=== PATIENT | male | born 1950 | race Caucasian/White ===

== ENCOUNTER 2018-05-14 01:16 | Observation (INO) | payer MEDICARE ==
[2018-05-14] MEDS ORDERED: ASPIRIN 81 MG CHEWABLE TABLET PO ONE (01:32)
--- NOTE | 2018-05-14 01:41 | Emergency Department Record ---
History of Present Illness - General Chief Complaint: Chest Pain Stated Complaint: CHEST PAIN Time Seen by Provider: 05/14/18 01:31 Source: Patient Mode of Arrival: Ambulatory Limitations: No limitations - History of Present Illness Initial Comments: 67 yo male presents to ED for evaluation of intermittent chest pain symptoms, decreased sleep, and "labored breathing" resulting from his COPD symptoms. Patient denies fevers, chills, or cough symptoms. Patient denies previous heart problems at his baseline. Patient does report history of COPD, denies focal weakness on examination. MD Complaint: Chest pain Onset/Timin -: Days(s) Onset: During rest Pain Location: Substernal, Left chest, Right chest Pain Radiation: None Quality: Tightness Consistency: Intermittent Improves With: Nothing Worsens With: Nothing Context: New medications Treatments Prior to Arrival: Aspirin Treatment Prior to Arrival Comment:: 81 mg - Related Data Allergies Allergy/AdvReac Type Severity Reaction Status Date / Time No Known Drug Allergies Allergy Unverified 05/10/18 17:36 Travel Screening - Travel/Exposure Within Last 30 Days Have you traveled within the last 30 days?: No - Travel/Exposure Within Last Year Have you traveled outside the [place] in the last year?: No - Additonal Travel Details Have you been exposed to anyone with a communicable illness?: No - Travel Symptoms Symptom Screening: None Review of Systems Constitutional: Denies: Chills, Fever, Malaise, Night sweats Eyes: Denies: Eye discharge, Eye pain ENT: Denies: Congestion, Ear pain, Epistaxis Respiratory: Denies: Cough, Dyspnea Cardiovascular: Reports: Chest pain. Denies: Dyspnea on exertion, Edema Endocrine: Denies: Fatigue, Heat or cold intolerance Gastrointestinal: Denies: Abdominal pain, Nausea, Vomiting Genitourinary: Denies: Incontinence, Retention Musculoskeletal: Denies: Arthralgia, Back pain, Gout, Joint swelling Skin: Denies: Bruising, Change in color Neurological: Denies: Abnormal gait, Confusion, Headache, Seizure Psychiatric: Reports: Anxiety Hematological/Lymphatic: Denies: Anemia, Blood Clots Past Medical History - SOCIAL HISTORY Smoking Status: Former smoker Alcohol Use: Rare Drug Use: Heavy Drug Use Detail:: Marijuana - RESPIRATORY Hx Respiratory Disorders: Yes Hx COPD: Yes Hx Pneumonia: Yes (yearly) Comment:: spontaneous pneumo - CARDIOVASCULAR Hx Cardio Disorders: No Hx Hypertension: Yes (mild) - NEURO Hx Neuro Disorders: No - GI Hx GI Disorders: No - Hx Genitourinary Disorders: No - ENDOCRINE Hx Endocrine Disorders: No - MUSCULOSKELETAL Hx Musculoskeletal Disorders: Yes Hx Arthritis: Yes - PSYCH Hx Psych Problems: Yes Hx Depression: Yes - HEMATOLOGY/ONCOLOGY Hx Hematology/Oncology Disorders: No Family Medical History Any Significant Family History?: No Hx Anxiety: Brother/Sister Hx Depression: Brother/Sister Hx Diabetes: Brother/Sister Hx Heart Disease: Mother, Grandparents Hx Resp Disorders: Father Physical Exam - General General Appearance: Alert, Oriented x3, Cooperative, Anxious Limitations: No limitations - Head Head exam: Atraumatic, Normocephalic, Normal inspection Head exam detail: negative: Abrasion, Contusion, Fan's sign, General tenderness, Hematoma, Laceration - Eye Eye exam: Normal appearance. negative: Conjunctival injection, Periorbital swelling, Periorbital tenderness, Scleral icterus - ENT Ear exam: negative: Auricular hematoma, Auricular trauma Nasal Exam: negative: Active bleeding, Discharge, Dried blood, Foreign body Mouth exam: negative: Drooling, Laceration, Muffled voice, Tongue elevation - Neck Neck exam: Normal inspection. negative: Meningismus, Tenderness - Respiratory Respiratory exam: Normal lung sounds bilaterally. negative: Rales, Respiratory distress, Rhonchi, Stridor - Cardiovascular Cardiovascular Exam: Regular rate, Normal rhythm, Normal heart sounds - GI/Abdominal GI/Abdominal exam: Soft. negative: Rebound, Rigid, Tenderness - Rectal Rectal exam: Deferred - exam: Deferred - Extremities Extremities exam: Normal inspection. negative: Calf tenderness, Pedal edema, Tenderness - Back Back exam: Denies: CVA tenderness (R), CVA tenderness (L) - Neurological Neurological exam: Alert, Normal gait, Oriented X3. negative: Motor sensory deficit - Psychiatric Psychiatric exam: Anxious - Skin Skin exam: Normal color. negative: Abrasion Type of lesion: negative: abrasion Course Vital Signs 05/14/18 01:19 Temperature 97.8 F Pulse Rate [ 75 [employer] ] Respiratory 24 Rate Blood Pressure 186/101 [Right Arm] Pulse Ox 95 - Reevaluation(s) Reevaluation #1: 05/14/18 01:40 EKG: NSR 71 Normal axis, normal intervals No acute ST-T wave changes No significant change from previous Reevaluation #2: 05/14/18 02:07 Labs reviewed and are grossly unremarkable for an acute process. Reevaluation #3: 05/14/18 02:25 Patient is back from CT imaging, reports improvement in his nausea/vertigo symptoms. Will continue to monitor closely. Reevaluation #4: 05/14/18 02:45 CT Brain: No acute process Mastoid opacification bilaterally Patient was updated on all results, will admit for further cardiac evaluation. Reevaluation #5: 05/14/18 06:43 Case was discussed with Rosario Lopez NP, will accept admission at this time. Medical Decision Making - Lab Data Result diagrams: 05/14/18 01:22 05/14/18 01:22 Disposition Disposition: Admit Clinical Impression: Vertigo Chest pain Qualifiers: Chest pain type: unspecified Qualified Code(s): R07.9 - Chest pain, unspecified Nausea & vomiting Qualifiers: Vomiting type: unspecified Vomiting Intractability: non-intractable Qualified Code(s): R11.2 - Nausea with vomiting, unspecified Disposition: Still a Patient at [facility] Decision to Admit: Admit from ER Decision to Admit Date: 05/14/18 Decision to Admit Time: 02:48 Condition: (2) Stable Time of Disposition: 02:48 Quality - Quality Measures Quality Measures: N/A - Blood Pressure Screening Does Patient Have Any of the Following: No Blood Pressure Classification: Hypertensive Reading Systolic Measurement: 153 Diastolic Measurement: 79 Screening for High Blood Pressure: < First Hypertensive BP, F/U Documented > [ [id number]] First Hypertensive Follow-up Interventions: Referral to alternative/primary care provider.
[2018-05-14 01:42] LABS: BASO % 0.1 % (0-6); EOS % 1.4 % (0-6); GRAN % 60.9 % (47-80); HEMATOCRIT 37.6 % (42.0-52.0); HEMOGLOBIN 13.1 gm/dl (14.0-18.0); LYMPH % 28.9 % (16-45); MEAN CELL VOLUME 92.2 fl (81-97); MEAN CORPUSCULAR HEMOGLOBIN 32.1 pg (27-33); MEAN CORPUSCULAR HGB CONC 34.8 g/dl (32-36); MEAN PLATELET VOLUME 9.9 fl (7.4-10.4); MONO % 8.7 % (0-9); PLATELET COUNT 222 K/uL (130-400); RED BLOOD COUNT 4.08 M/uL (4.40-5.70); RED CELL DISTRIBUTION WIDTH 12.7 % (11.5-14.5)
[2018-05-14 01:58] LABS: BLOOD UREA NITROGEN 15 mg/dL (8-23); CREATININE 0.6 mg/dL (0.7-1.2); EST GLOMERULAR FILTRATION RATE > 60 mL/min
[2018-05-14] MEDS ORDERED: MECLIZINE 25 MG TABLET PO ONE (01:58)
[2018-05-14] MEDS ORDERED: ONDANSETRON HCL IV 4 MG/2 ML VIAL IVP ONE (01:58)
[2018-05-14 01:59] LABS: TOTAL PROTEIN 6.3 g/dL (6.6-8.7)
[2018-05-14] MEDS ORDERED: 0.9 % SODIUM CHLORIDE 1000ML 1,000 ML IV SCH (02:00)
[2018-05-14 02:01] LABS: GLUCOSE,RANDOM 116 mg/dL (74-109)
[2018-05-14 02:03] LABS: ALB/GLOB RATIO 1.6 (1.1-1.8); ALBUMIN 3.9 g/dL (4.0-5.0); ALT/SGPT 16 U/L (<41); AST/SGOT 16 U/L (10.0-50.0)
[2018-05-14 02:04] LABS: ALKALINE PHOSPHATASE 49 U/L (40-129)
[2018-05-14] MEDS ORDERED: GUAIFENESIN 600 MG TABCR PO PRN (03:16)
[2018-05-14] MEDS ORDERED: ALBUTEROL HFA 8 GM INHALER INH PRN (03:16)
[2018-05-14] MEDS ORDERED: ONDANSETRON HCL IV 4 MG/2 ML VIAL IVP PRN ×2 (03:16→19:28)
[2018-05-14] MEDS: ASPIRIN 325 MG TAB ENTERIC-COATED PO SCH (09:09)
[2018-05-14] MEDS: LISINOPRIL 10 MG TABLET PO SCH (09:09)
[2018-05-14] MEDS: IPRATROPIUM/ALBUTEROL (0.5MG/3MG) NEB INH SCH ×4 (09:22→22:30)
[2018-05-14] MEDS: BREO (FLUTICASONE/VILANTEROL) 200MCG/25MCG INHALER INH SCH (09:22)
[2018-05-14] MEDS ORDERED: TRAZODONE 50 MG TABLET PO SCH (10:00)
--- NOTE | 2018-05-14 10:03 | CT SCAN REPORT ---
EXAM: CT OF THE BRAIN WITHOUT CONTRAST HISTORY: MENTAL STATUS CHANGE. TECHNIQUE: Sequential axial images were obtained from the foramen magnum to the vertex without contrast administration. FINDINGS: The brain volume is normal. No large territorial infarct, hemorrhage , mass effect, or midline shift. No extraaxial fluid collection. The orbits appear normal. There is bilateral mastoid air cell disease. IMPRESSION: 1. NO ACUTE INTRACRANIAL ABNORMALITY IS APPRECIATED. 2. BILATERAL MASTOID AIR CELL DISEASE. JOB NUMBER: [id number] [facility]
--- NOTE | 2018-05-14 11:03 | History & Physical ---
History of Present Illness - Date of Service Date of Service for History & Physical: 05/14/18 - History of Present Illness Admitting Diagnosis: Chest Pain. Vertigo. Nause/vomiting History of Present Illness: Marcus Acevedo is a 67 y.o. male who presented to the ED with c/o dizziness, intermittent chest discomfort and "labored breathing" that he reports was worse than his usual. PMHx includes COPD and hx of pneumonia. He reports that he was in the [facility] on 05/10/2018 with c/o a sore throat and some shortness of breath d/t the sore throat. He was prescribed Azithromycin and has been taking it as prescribed and his sore throat has almost resolved. However, he developed dizziness on Monday05/12/2018 while just sitting on the couch. He reports that it eventually went away. The dizziness and difficulty breathing returned on Monday while sleeping. He denied chest pain, but rather chest tightness that radiated to his shoulder, neck and upper back that he has had difficulty with since sustaining neck fractures in May 2017. He also reports that he became very anxious which "may have" cause the chest tightness. Reports that he takes his medications as prescribed, occasionally "cheats" and smokes cigarettes and doesn't see a lung specialist. Denies having had any alcohol intake over the past 3 days. In the ED, CT of head was negative for acute process, EKG was normal, Troponins x 2 negative. 05/14/2018 11:00am VS: 98.2 67 139/79 16 96% RA Pt sitting at the edge of bed. A&Ox3. C/o dizziness and nausea. Denies chest discomfort or SYED. Denies pain. Denies sore throat, sinus congestion or cough. Travel Screening - Travel/Exposure Within Last 30 Days Have you traveled within the last 30 days?: No Location Detail:: [place] - Travel/Exposure Within Last Year Have you traveled outside the [place] in the last year?: No - Additonal Travel Details Have you been exposed to anyone with a communicable illness?: No - Travel Symptoms Symptom Screening: None Review of Systems Constitutional: Denies: Chills, Fever, Malaise, Night sweats ENT: Reports: Throat pain (Finishing up Azithromycin for sore throat). Denies: Congestion, Ear pain, Epistaxis Respiratory: Denies: Cough, Dyspnea Cardiovascular: Reports: Dyspnea on exertion (No change from baseline). Denies : Edema Endocrine: Denies: Fatigue, Heat or cold intolerance Gastrointestinal: Denies: Abdominal pain, Constipation, Nausea, Vomiting Genitourinary: Denies: Incontinence, Retention Musculoskeletal: Denies: Arthralgia, Back pain, Gout, Joint swelling Skin: Denies: Bruising, Change in color Neurological: Reports: Vertigo. Denies: Abnormal gait, Confusion, Headache, Seizure Psychiatric: Reports: Anxiety Hematological/Lymphatic: Denies: Anemia, Blood Clots Past Medical History - SOCIAL HISTORY Smoking Status: Former smoker Alcohol Use: Rare Drug Use: Heavy Drug Use Detail:: Marijuana - RESPIRATORY Hx Respiratory Disorders: Yes Hx COPD: Yes Hx Pneumonia: Yes (yearly) Comment:: spontaneous pneumo - CARDIOVASCULAR Hx Cardio Disorders: No Hx Hypertension: Yes (mild) - NEURO Hx Neuro Disorders: No - GI Hx GI Disorders: No - Hx Genitourinary Disorders: No - ENDOCRINE Hx Endocrine Disorders: No - MUSCULOSKELETAL Hx Musculoskeletal Disorders: Yes Hx Arthritis: Yes - PSYCH Hx Psych Problems: Yes Hx Depression: Yes - HEMATOLOGY/ONCOLOGY Hx Hematology/Oncology Disorders: No Family Medical History Any Significant Family History?: No Hx Anxiety: Brother/Sister Hx Depression: Brother/Sister Hx Diabetes: Brother/Sister Hx Heart Disease: Mother, Grandparents Hx Resp Disorders: Father H&P Meds/Allergies - Allergies Allergies: Allergies Allergy/AdvReac Type Severity Reaction Status Date / Time No Known Drug Allergies Allergy Unverified 05/10/18 17:36 - Active Medications Active Medications: Current Medications Albuterol Sulfate (Ventolin Hfa) 2 puff INH RESP.Q6H PRN PRN Reason: DIFFICULTY IN BREATHING Albuterol/Ipratropium (Duoneb) 3 ml INH QID [facility] Last Admin: 05/14/18 09:22 Dose: 3 ml Aspirin (Ecotrin (Ec)) 325 mg PO DAILY [facility] Last Admin: 05/14/18 09:09 Dose: 325 mg Fluticasone Propionate (Flonase) 2 spray NA DAILY [facility] Guaifenesin (Mucinex) 600 mg PO Q12H PRN PRN Reason: COUGH Lisinopril (Zestril) 10 mg PO DAILY [facility] Last Admin: 05/14/18 09:09 Dose: 10 mg Meclizine HCl (Antivert) 25 mg PO Q8H PRN PRN Reason: DIZZINESS Ondansetron HCl (Zofran) 4 mg IVP Q4H PRN PRN Reason: NAUSEA Trazodone HCl (Desyrel) 50 mg PO DAILY [facility] Last Admin: 05/14/18 09:09 Dose: Not Given Physical Exam - Vital Signs Vital Signs: Vital Signs - Last 24 Hrs Temp Pulse Pulse Pulse Resp BP BP 05/14/18 09:23 85 18 05/14/18 09:16 98.2 F 67 16 139/79 05/14/18 09:00 72 20 05/14/18 05:00 98.1 F 88 17 153/79 05/14/18 03:16 97.7 F 76 16 160/93 05/14/18 02:59 71 20 161/84 05/14/18 02:08 71 18 167/87 05/14/18 01:19 97.8 F 75 24 186/101 Pulse Ox 05/14/18 09:23 96 05/14/18 09:16 96 05/14/18 09:00 05/14/18 05:00 97 05/14/18 03:16 95 05/14/18 02:59 94 L 05/14/18 02:08 94 L 05/14/18 01:19 95 - General General Appearance: Alert, Oriented x3, Cooperative Limitations: No limitations - Head Head exam: Atraumatic, Normocephalic, Normal inspection Head exam detail: negative: Abrasion, Contusion, Fan's sign, General tenderness, Hematoma, Laceration - Eye Eye exam: Normal appearance. negative: Conjunctival injection, Periorbital swelling, Periorbital tenderness, Scleral icterus - ENT ENT exam: Mucous membranes moist. negative: TM's normal bilaterally (fluid behind tympanic membrane) Ear exam: negative: Auricular hematoma, Auricular trauma Nasal Exam: negative: Active bleeding, Discharge, Dried blood, Foreign body, Sinus tenderness Mouth exam: negative: Drooling, Laceration, Muffled voice, Tongue elevation Throat exam: Tonsillar exudate. negative: Tonsillar erythema - Neck Neck exam: Normal inspection. negative: Lymphadenopathy, Tenderness - Respiratory Respiratory exam: Decreased breath sounds. negative: Rales, Respiratory distress, Rhonchi, Stridor - Cardiovascular Cardiovascular Exam: Regular rate, Normal rhythm, Normal heart sounds - GI/Abdominal GI/Abdominal exam: Soft. negative: Rebound, Rigid, Tenderness - Rectal Rectal exam: Deferred - exam: Deferred - Extremities Extremities exam: Normal inspection. negative: Calf tenderness, Pedal edema, Tenderness - Back Back exam: Denies: CVA tenderness (R), CVA tenderness (L) - Neurological Neurological exam: Alert, Normal gait, Oriented X3. negative: Motor sensory deficit - Psychiatric Psychiatric exam: Anxious - Skin Skin exam: Dry, Normal color. negative: Abrasion, Diaphoretic, Pallor Type of lesion: negative: abrasion Results - Labs Result Diagrams: 05/14/18 01:22 05/14/18 01:22 Labs Last 24 Hours: Laboratory Results - last 24 hr 05/14/18 05/14/18 05/14/18 01:22 01:22 09:00 WBC 7.0 RBC 4.08 L Hgb 13.1 L Hct 37.6 L MCV 92.2 MCH 32.1 MCHC 34.8 RDW 12.7 Plt Count 222 MPV 9.9 Gran % 60.9 Lymphocytes % 28.9 Monocytes % 8.7 Eosinophils % 1.4 Basophils % 0.1 Sodium 135 L Potassium 4.0 Chloride 98 Carbon Dioxide 25.0 Anion Gap 12.0 BUN 15 Creatinine 0.6 L Estimated GFR > 60 Random Glucose 116 H Calcium 8.5 L Total Bilirubin 0.30 AST 16 ALT 16 Alkaline Phosphatase 49 Troponin T < 0.010 < 0.010 Total Protein 6.3 L Albumin 3.9 L Globulin 2.4 Albumin/Globulin Ratio 1.6 VTE H&P Assessment - Risk for VTE Risk for VTE: Yes Risk Level: Moderate Risk Assessment Date: 05/14/18 Risk Assessment Time: 11:34 VTE Orders Placed or Will Be Placed: No VTE Reason for No Prophylaxis: Not Indicated (Encourage ambulation) Plan - Detailed Diagnosis and Plan (1) Vertigo Current Visit: Yes Status: Acute Base Code: R42 - DIZZINESS AND GIDDINESS Comment: 05/14/2018 -Head CT=negative, Sodium 135 -Fluid behind tympanic membranes, has had recent treatment for sore throat -Continue Meclizine 25mg q. 8 hours as needed -Change Zofran from IV to Sublingual 4mg q. 8 hours as needed -Trial Flonase 2 sprays daily for fluid behind tympanic membranes (2) Chest pain Current Visit: Yes Status: Acute Qualifiers: Chest pain type: unspecified Qualified Code(s): R07.9 - Chest pain, unspecified Base Code: R07.9 - CHEST PAIN, UNSPECIFIED Comment: 05/14/2018 -EKG normal, Troponins x 2 negative -3rd Troponin at 1700 -Cardiology consult -CXR ordered -Continue ASA 325mg daily (3) Nausea & vomiting Current Visit: Yes Status: Acute Qualifiers: Vomiting type: unspecified Vomiting Intractability: non-intractable Qualified Code(s): R11.2 - Nausea with vomiting, unspecified Base Code: R11.2 - NAUSEA WITH VOMITING, UNSPECIFIED Comment: 05/14/2018 -Continue Zofran, changed from IV to Sublingual 4mg q. 8 hours as needed (4) Full code status Current Visit: Yes Status: Acute Base Code: Z78.9 - OTHER SPECIFIED HEALTH STATUS Comment: 05/14/2018 -Full code this admission (5) At risk for venous thromboembolism (VTE) Current Visit: Yes Status: Acute Base Code: Z91.89 - OTH PERSONAL RISK FACTORS, NOT ELSEWHERE CLASSIFIED Comment: 05/14/2018 -Nursing to encourage ambulation
[2018-05-14] MEDS: MECLIZINE 25 MG TABLET PO PRN ×2 (11:17→17:09)
[2018-05-14] MEDS ORDERED: ONDANSETRON 4 MG ODT TABLET SL PRN (11:41)
[2018-05-14] MEDS: FLUTICASONE PROPIONATE 50MCG NASAL 16 GM BTL SCH (12:04)
--- NOTE | 2018-05-14 13:17 | RADIOLOGY REPORT ---
EXAM: CHEST, TWO VIEWS HISTORY: DIFFICULTY BREATHING. TECHNIQUE: Frontal and lateral views of the chest were performed. Comparison: 03/06/18. FINDINGS: The heart size is normal. The lungs are hyperinflated. There is severe emphysematous change. No infiltrate or pleural effusion. Healed left posterior rib fracture deformity. IMPRESSION: SEVERE UNDERLYING EMPHYSEMA. NO ACUTE PROCESS. JOB NUMBER: [id number] [facility]
[2018-05-14] MEDS ORDERED: DIPHENHYDRAMINE HCL 25 MG CAPSULE PO ONE (14:02)
[2018-05-14] MEDS: 0.9 % SODIUM CHLORIDE 1000ML 1,000 ML IV PRN (20:15)
--- NOTE | 2018-05-14 23:04 | Cardiology Consult ---
DATE OF CONSULTATION: 05/14/2018 REASON FOR CONSULT: CHEST PAIN. HISTORY OF PRESENT ILLNESS: This is a pleasant 67-year-old male with no previous history of coronary artery disease. The patient states he had had several episodes of dizziness with the room spinning. During one of these episodes, he developed chest tightness, which he states may be from feeling anxious. Previous to that, he denies any exertional chest pain. He denies any increased shortness of breath. The patient states he does have underlying shortness of breath due to COPD but that he had not had any increased dyspnea. He denies any orthopnea or PND. He denies any palpitations. The patient denies any lower extremity edema. PAST MEDICAL HISTORY: The patient's past medical history includes COPD, hypertension. ALLERGIES: NO KNOWN DRUG ALLERGIES. REVIEW OF SYSTEMS: CONSTITUTIONAL; Denies any recent illness, significant weight change, or fevers. HEENT; Denies any change in hearing, change in vision , congestion, difficulty swallowing. RESPIRATORY; Denies any cough, dyspnea, or hemoptysis. CARDIOVASCULAR; Positive chest tightness. Negative palpitations. Negative edema. ENDOCRINE; Denies any heat or cold intolerance. GASTROINTESTINAL ; Denies abdominal pain. Positive for nausea, positive vomiting. Negative for melena. GENITOURINARY; Denies any dysuria or hematuria. MUSCULOSKELETAL; Denies any new back pain or joint pain. SKIN; Denies any bruising or rash. NEUROLOGICAL ; Denies any headaches, seizures, or abnormal gait. PSYCHIATRIC; Positive anxiety. HEMATOLOGICAL/LYMPHATIC; Denies any anemia or blot clot history. SOCIAL HISTORY: Positive for smoking history. States not currently smoking but does cheat now and then and has a cigarette. He states he is at least a pack per day for 40+ years. Does use medical marijuana orally, not through smoking. Alcohol use is rare. FAMILY HISTORY: No family history of premature coronary artery disease. HOME MEDICATIONS: None listed but patient does state he takes something for blood pressure. PHYSICAL EXAMINATION: VITAL SIGNS: Blood pressure on admission was 186/101. Pulse 75. Respirations 24. Pulse ox was 95%. He was afebrile. GENERAL: Patient is alert and oriented x3, cooperative, answers questions appropriately. HEENT: Normocephalic, atraumatic. Extraocular movements are intact. Pupils are equal and round. NECK: Supple without lymphadenopathy, thyromegaly, or bruits. CARDIAC: Regular rate and rhythm. No significant murmur was appreciated. LUNGS: Clear to auscultation in all lung lee without rales, rhonchi, or wheeze. ABDOMEN: Soft, nontender. Bowel sounds present in all four quadrants. EXTREMITIES: No edema. 2+ pulses bilaterally. SKIN: Warm and dry. DIAGNOSTIC STUDIES: EKG: EKG demonstrates normal sinus rhythm with no acute changes. Rate was 71 beats per minute. LABORATORIES: WBC 7.0. Hematocrit 13.1. Hemoglobin 13.1. Hematocrit 37.6. Platelet count of 212. Sodium 135. Potassium 4.0. Chloride 98. CO2 25. BUN 15. Creatinine 0.6. Glucose 116. Troponins negative x3. ASSESSMENT/PLAN: 1. CHEST PAIN, ATYPICAL: Troponins negative x3. Patient will undergo a basic stress test when medically able. Patient will also undergo echocardiogram to assess for current LV function, cardiac chamber sizes, and valvular status. 2. HYPERTENSION: Monitor. Thank you for the opportunity to participate in this patient's care. The case was discussed with Dr. Darren Hancock, who agrees with the above. JOB NUMBER: [id number] [facility]
[2018-05-14] MEDS: TRAZODONE 50 MG TABLET PO SCH (23:23)
[2018-05-14] MEDS: LORAZEPAM 2 MG/ML VIAL IV PRN (23:24)
[2018-05-15] MEDS: 0.9 % SODIUM CHLORIDE 1000ML 1,000 ML IV PRN (05:14)
[2018-05-15 06:56] LABS: BASO % 0.2 % (0-6); EOS % 1.5 % (0-6); GRAN % 66.6 % (47-80); HEMATOCRIT 38.1 % (42.0-52.0); HEMOGLOBIN 12.9 gm/dl (14.0-18.0); LYMPH % 24.1 % (16-45); MEAN CELL VOLUME 94.1 fl (81-97); MEAN CORPUSCULAR HGB CONC 33.9 g/dl (32-36); MEAN PLATELET VOLUME 9.9 fl (7.4-10.4); MONO % 7.6 % (0-9); PLATELET COUNT 197 K/uL (130-400); RED BLOOD COUNT 4.05 M/uL (4.40-5.70); RED CELL DISTRIBUTION WIDTH 12.8 % (11.5-14.5); WHITE BLOOD COUNT W/O DIFF 5.9 K/uL (4.2-12.2)
[2018-05-15 07:03] LABS: MEAN CORPUSCULAR HEMOGLOBIN 31.8 pg (27-33)
[2018-05-15 07:15] LABS: ALB/GLOB RATIO 1.9 (1.1-1.8); ALBUMIN 3.6 g/dL (4.0-5.0); ALKALINE PHOSPHATASE 39 U/L (40-129); ALT/SGPT 13 U/L (<41); AST/SGOT 11 U/L (10.0-50.0); BLOOD UREA NITROGEN 12 mg/dL (8-23); CREATININE 0.7 mg/dL (0.7-1.2); EST GLOMERULAR FILTRATION RATE > 60 mL/min; GLUCOSE,RANDOM 86 mg/dL (74-109); TOTAL PROTEIN 5.5 g/dL (6.6-8.7)
[2018-05-15] MEDS ORDERED: ASPIRIN 325 MG TABLET PO ONE (07:43)
--- NOTE | 2018-05-15 08:55 | Physician Progress Note ---
Subjective - Date Date of Physician Progress Note: 05/16/18 - Subjective Subjective Comment: Patient still complains of dizziness and lightheadedness. He says his chest pain has gone away but he has some intermittent numbness of the left arm. BP: 164/92 HR: 76 RR 18 Sats % 97% Temp: 98.6 Objective - Vital Signs Vital Signs: Vital Signs - Last 24 Hrs Temp Pulse Pulse Pulse Resp BP Pulse Ox 05/15/18 08:12 98.6 F 76 18 164/92 97 05/15/18 05:00 98.0 F 68 16 119/85 95 05/14/18 22:33 75 16 94 L 05/14/18 21:00 80 74 16 05/14/18 20:59 97.9 F 74 16 142/88 96 05/14/18 17:00 97.8 F 76 16 152/66 97 05/14/18 13:40 74 16 98 05/14/18 09:23 85 18 96 05/14/18 09:16 98.2 F 67 16 139/79 96 05/14/18 09:00 72 20 - General General Appearance: Alert, Oriented x3, Cooperative Limitations: No limitations - Head Head exam: Atraumatic, Normocephalic, Normal inspection Head exam detail: negative: Abrasion, Contusion, Fan's sign, General tenderness, Hematoma, Laceration - Eye Eye exam: Normal appearance. negative: Conjunctival injection, Periorbital swelling, Periorbital tenderness, Scleral icterus - ENT ENT exam: Mucous membranes moist. negative: TM's normal bilaterally (fluid behind tympanic membrane) Ear exam: negative: Auricular hematoma, Auricular trauma Nasal Exam: negative: Active bleeding, Discharge, Dried blood, Foreign body, Sinus tenderness Mouth exam: negative: Drooling, Laceration, Muffled voice, Tongue elevation Throat exam: Tonsillar exudate. negative: Tonsillar erythema - Neck Neck exam: Normal inspection. negative: Lymphadenopathy, Tenderness - Respiratory Respiratory exam: Decreased breath sounds. negative: Rales, Respiratory distress, Rhonchi, Stridor - Cardiovascular Cardiovascular Exam: Regular rate, Normal rhythm, Normal heart sounds - GI/Abdominal GI/Abdominal exam: Soft. negative: Rebound, Rigid, Tenderness - Rectal Rectal exam: Deferred - exam: Deferred - Extremities Extremities exam: Normal inspection. negative: Calf tenderness, Pedal edema, Tenderness - Back Back exam: Denies: CVA tenderness (R), CVA tenderness (L) - Neurological Neurological exam: Alert, Normal gait, Oriented X3. negative: Motor sensory deficit - Psychiatric Psychiatric exam: Anxious - Skin Skin exam: Dry, Normal color. negative: Abrasion, Diaphoretic, Pallor Type of lesion: negative: abrasion Assessment and Plan - Assessment and Plan (1) Vertigo Current Visit: Yes Status: Acute Base Code: R42 - DIZZINESS AND GIDDINESS Comment: 05/15/2018 - CT head w/o contrast, negative for acute intracranial process. - No electrolyte disturbance - Continue Meclizine 25mg q. 8 hours PRN, PO Zofran 4mg q. 8 hours PRN (2) Chest pain Current Visit: Yes Status: Acute Qualifiers: Chest pain type: unspecified Qualified Code(s): R07.9 - Chest pain, unspecified Base Code: R07.9 - CHEST PAIN, UNSPECIFIED Comment: 05/15/2018 - Resolved -EKG normal, no acute change on monitor,Troponins x 3 negative - 2D echo completed - report pending, outpatient stress test on discharge. - CXR: emphysetamous changes, no acute process noted. - ASA 325mg, Lisinopril 10mg (3) HTN (hypertension) Current Visit: Yes Status: Acute Base Code: I10 - ESSENTIAL (PRIMARY) HYPERTENSION Comment: 05/15/18: - BP 164/92 - continue Lisinopril 10mg daily. - holding parametes, SBP < 120, HR <55 (4) COPD (chronic obstructive pulmonary disease) Current Visit: No Status: Acute Qualifiers: COPD type: chronic bronchitis Chronic bronchitis type: unspecified Qualified Code(s): J42 - Unspecified chronic bronchitis Base Code: J44.9 - CHRONIC OBSTRUCTIVE PULMONARY DISEASE, UNSPECIFIED Comment : 05/15/18: - continue Albuterol nebs Q6H PRN, Breo 2 puff QD - oxygen to maintain sats > 92 % - mucinex 600mg Q12H PRN (5) At risk for venous thromboembolism (VTE) Current Visit: Yes Status: Acute Base Code: Z91.89 - OTH PERSONAL RISK FACTORS, NOT ELSEWHERE CLASSIFIED Comment: 05/15/2018 -Nursing to encourage ambulation (6) Full code status Current Visit: Yes Status: Acute Base Code: Z78.9 - OTHER SPECIFIED HEALTH STATUS Comment: 05/15/2018 -Full code - Disposition Disposition: Pending 2D echo pending. OPT stress test Results - Labs Result Diagrams: 05/15/18 06:30 05/16/18 06:27 Labs Last 24 Hours: Laboratory Results - last 24 hr 05/14/18 05/14/18 05/15/18 09:00 17:22 06:15 WBC RBC Hgb Hct MCV MCH MCHC RDW Plt Count MPV Gran % Lymphocytes % Monocytes % Eosinophils % Basophils % Sodium Potassium Chloride Carbon Dioxide Anion Gap BUN Creatinine Estimated GFR Random Glucose Calcium Total Bilirubin AST ALT Alkaline Phosphatase Troponin T < 0.010 < 0.010 < 0.010 Total Protein Albumin Globulin Albumin/Globulin Ratio 05/15/18 05/15/18 05/15/18 06:30 06:30 07:44 WBC 5.9 RBC 4.05 L Hgb 12.9 L Hct 38.1 L MCV 94.1 MCH 31.8 MCHC 33.9 RDW 12.8 Plt Count 197 MPV 9.9 Gran % 66.6 Lymphocytes % 24.1 Monocytes % 7.6 Eosinophils % 1.5 Basophils % 0.2 Sodium 139 Potassium 3.6 Chloride 103 Carbon Dioxide 28.0 Anion Gap 8.0 BUN 12 Creatinine 0.7 Estimated GFR > 60 Random Glucose 86 Calcium 8.1 L Total Bilirubin 0.50 AST 11 ALT 13 Alkaline Phosphatase 39 L Troponin T < 0.010 Total Protein 5.5 L Albumin 3.6 L Globulin 1.9 Albumin/Globulin Ratio 1.9 H DVT/PE Assessment - Risk for VTE Risk for VTE: No Risk Level: Moderate Risk Assessment Date: 05/14/18 Risk Assessment Time: 11:34 VTE Orders Placed or Will Be Placed: No VTE Reason for No Prophylaxis: Not Indicated (Encourage ambulation) - Active Medicaitons Current Medications: Current Medications Albuterol Sulfate (Ventolin Hfa) 2 puff INH RESP.Q6H PRN PRN Reason: DIFFICULTY IN BREATHING Albuterol/Ipratropium (Duoneb) 3 ml INH QID [facility] Last Admin: 05/14/18 22:30 Dose: 3 ml Aspirin (Ecotrin (Ec)) 325 mg PO DAILY [facility] Last Admin: 05/14/18 09:09 Dose: 325 mg Fluticasone Propionate (Flonase) 2 spray NA DAILY [facility] Last Admin: 05/14/18 12:04 Dose: 2 spray Guaifenesin (Mucinex) 600 mg PO Q12H PRN PRN Reason: COUGH Sodium Chloride () 1,000 mls @ 100 mls/hr IV .Q10H PRN PRN Reason: LARGE VOLUME IV Last Admin: 05/15/18 05:14 Dose: 100 mls/hr Lisinopril (Zestril) 10 mg PO DAILY [facility] Last Admin: 05/14/18 09:09 Dose: 10 mg Lorazepam (Ativan) 0.5 mg IV Q8H PRN PRN Reason: ANXIETY Last Admin: 05/14/18 23:24 Dose: 0.5 mg Meclizine HCl (Antivert) 25 mg PO Q8H PRN PRN Reason: DIZZINESS Last Admin: 05/14/18 17:09 Dose: 25 mg Ondansetron HCl (Zofran Odt) 4 mg SL Q8H PRN PRN Reason: NAUSEA/VOMITING Ondansetron HCl (Zofran) 4 mg IVP Q6H PRN PRN Reason: NAUSEA Trazodone HCl (Desyrel) 50 mg PO QHS [facility] Last Admin: 05/14/18 23:23 Dose: 50 mg AMI Plan - Labs Result Diagrams: 05/15/18 06:30 05/16/18 06:27
[2018-05-15] MEDS: MECLIZINE 25 MG TABLET PO PRN ×2 (09:14→18:33)
[2018-05-15] MEDS: LISINOPRIL 10 MG TABLET PO SCH (09:14)
[2018-05-15] MEDS: BREO (FLUTICASONE/VILANTEROL) 200MCG/25MCG INHALER INH SCH (09:40)
[2018-05-15] MEDS: IPRATROPIUM/ALBUTEROL (0.5MG/3MG) NEB INH SCH ×4 (09:40→21:54)
[2018-05-15] MEDS: ASPIRIN 325 MG TAB ENTERIC-COATED PO SCH (11:54)
[2018-05-15] MEDS ORDERED: ONDANSETRON HCL IV 4 MG/2 ML VIAL IVP ONE (13:13)
[2018-05-15] MEDS: FLUTICASONE PROPIONATE 50MCG NASAL 16 GM BTL SCH (13:35)
[2018-05-15] MEDS: TRAZODONE 50 MG TABLET PO SCH (21:38)
[2018-05-15] MEDS: LORAZEPAM 2 MG/ML VIAL IV PRN (21:43)
[2018-05-16 07:12] LABS: BLOOD UREA NITROGEN 18 mg/dL (8-23); CREATININE 0.8 mg/dL (0.7-1.2); EST GLOMERULAR FILTRATION RATE > 60 mL/min; GLUCOSE,RANDOM 97 mg/dL (74-109)
--- NOTE | 2018-05-16 09:04 | Discharge Summary ---
Providers Discharge Summary Date: 05/16/18 Date of admission: 05/14/18 03:16 Attending physician: RAHUL ROWELL Consults: Consult Orders 05/14/18 06:45 Consult - Cardiology NOW Consulting Provider: DENICE JOSEPH Physician Instructions: Reason For Exam: chest pain Does pt have current hospital chief financial officer?: Not Established Physical Exam - Vital Signs Vital Signs: Vital Signs - Last 24 Hrs Temp Pulse Pulse Resp BP Pulse Ox 05/16/18 08:23 66 17 05/16/18 07:00 97.9 F 66 17 145/85 94 L 05/16/18 03:00 98.2 F 79 16 150/84 97 05/15/18 23:00 97.6 F 77 16 171/88 96 05/15/18 21:54 74 16 95 05/15/18 21:00 77 18 05/15/18 19:00 98.3 F 77 18 163/87 97 05/15/18 17:48 66 16 97 05/15/18 13:54 74 16 98 05/15/18 09:42 63 16 99 - General General Appearance: Alert, Oriented x3, Cooperative Limitations: No limitations - Head Head exam: Atraumatic, Normocephalic, Normal inspection Head exam detail: negative: Abrasion, Contusion, Fan's sign, General tenderness, Hematoma, Laceration - Eye Eye exam: Normal appearance. negative: Conjunctival injection, Periorbital swelling, Periorbital tenderness, Scleral icterus - ENT ENT exam: Mucous membranes moist. negative: TM's normal bilaterally (fluid behind tympanic membrane) Ear exam: negative: Auricular hematoma, Auricular trauma Nasal Exam: negative: Active bleeding, Discharge, Dried blood, Foreign body, Sinus tenderness Mouth exam: negative: Drooling, Laceration, Muffled voice, Tongue elevation Throat exam: Tonsillar exudate. negative: Tonsillar erythema - Neck Neck exam: Normal inspection. negative: Lymphadenopathy, Tenderness - Respiratory Respiratory exam: Decreased breath sounds. negative: Rales, Respiratory distress, Rhonchi, Stridor - Cardiovascular Cardiovascular Exam: Regular rate, Normal rhythm, Normal heart sounds - GI/Abdominal GI/Abdominal exam: Soft. negative: Rebound, Rigid, Tenderness - Rectal Rectal exam: Deferred - exam: Deferred - Extremities Extremities exam: Normal inspection. negative: Calf tenderness, Pedal edema, Tenderness - Back Back exam: Denies: CVA tenderness (R), CVA tenderness (L) - Neurological Neurological exam: Alert, Normal gait, Oriented X3. negative: Motor sensory deficit - Psychiatric Psychiatric exam: Anxious - Skin Skin exam: Dry, Normal color. negative: Abrasion, Diaphoretic, Pallor Type of lesion: negative: abrasion Hospitalization - Hospitalization Admission Diagnosis: Chest Pain. Vertigo. Nause/vomiting - Problem List/Discharge Diagnosis (1) Vertigo Current Visit: Yes Status: Acute Base Code: R42 - DIZZINESS AND GIDDINESS Comment: 05/16/2018 - CT head w/o contrast, negative for acute intracranial process. - No electrolyte disturbance on repeat labs. - Continue Meclizine 25mg q. 8 hours PRN, PO Zofran 4mg q. 8 hours PRN - Transfer to [facility] for MRI/MRA of head. Check Hba1c, Lipid panel. - Fall Precuations - bed alarm, ambulation w/ assist. (2) Chest pain Current Visit: Yes Status: Acute Discharge Diagnosis: Chest pain type: unspecified Qualified Code(s): R07.9 - Chest pain, unspecified Base Code: R07.9 - CHEST PAIN, UNSPECIFIED Comment: 05/16/2018 - Resolved - EKG normal, no acute change on monitor,Troponins x 3 negative - 2D echo completed - preserved EF, no valvulopathy. - CXR: emphysetamous changes, no acute process noted. - Full dose aspirin, Lisinopril 20mg (3) HTN (hypertension) Current Visit: Yes Status: Acute Base Code: I10 - ESSENTIAL (PRIMARY) HYPERTENSION Comment: 05/16/18: - BP 164/92--> 145/85 - continue Lisinopril 20mg daily. - holding parameters, SBP < 120 (4) COPD (chronic obstructive pulmonary disease) Current Visit: No Status: Acute Discharge Diagnosis: COPD type: chronic bronchitis Chronic bronchitis type: unspecified Qualified Code(s): J42 - Unspecified chronic bronchitis Base Code: J44.9 - CHRONIC OBSTRUCTIVE PULMONARY DISEASE, UNSPECIFIED Comment : 05/16/18: stable - continue Albuterol nebs Q6H PRN, Breo 2 puff QD - oxygen to maintain sats > 92 % - mucinex 600mg Q12H PRN (5) At risk for venous thromboembolism (VTE) Current Visit: Yes Status: Acute Base Code: Z91.89 - OTH PERSONAL RISK FACTORS, NOT ELSEWHERE CLASSIFIED Comment: 05/16/2018 - Lovenox 40mg QD -Nursing to encourage ambulation. (6) Full code status Current Visit: Yes Status: Acute Base Code: Z78.9 - OTHER SPECIFIED HEALTH STATUS Comment: 05/16/2018 -Full code - Disposition I discussed with Dr. Marcial (Admitting Physician) At [facility] who has agreed to admit the patient for completion of neurological workup with MRI/ MRA. The patient is aware of the plan and is agreeable to transfer for further workup. - Hospitalization Course Disposition: Acute Care Hospital Transfer Hospital Course: Marcus Acevedo is a 67 y.o. male who presented to the ED with c/o dizziness, intermittent chest discomfort and "labored breathing" that he reports was worse than his usual. PMHx includes COPD and hx of pneumonia. He reports that he was in the [facility] on 05/10/2018 with c/o a sore throat and some shortness of breath d/t the sore throat. He was prescribed Azithromycin and has been taking it as prescribed and his sore throat has almost resolved. However, he developed dizziness on Monday05/12/2018 while just sitting on the couch. He reports that it eventually went away. The dizziness and difficulty breathing returned on Monday while sleeping. He denied chest pain, but rather chest tightness that radiated to his shoulder, neck and upper back that he has had difficulty with since sustaining neck fractures in May 2017. He also reports that he became very anxious which "may have" cause the chest tightness. Reports that he takes his medications as prescribed, occasionally "cheats" and smokes cigarettes and doesn't see a lung specialist. Denies having had any alcohol intake over the past 3 days. In the ED, CT of head was negative for acute process, EKG was normal, Troponins x 2 negative. 05/14/2018 11:00am VS: 98.2 67 139/79 16 96% RA Pt sitting at the edge of bed. A&Ox3. C/o dizziness and nausea. Denies chest discomfort or SYED. Denies pain. Denies sore throat, sinus congestion or cough. 05/15/18: The patient is awake and alert x 3. He still has complaint of dizziness and unsteady gait. Unable to complete cerbellar examination as patient complains of dizziness with minimal movement. Vitals: BP164/92 RR18, HR76, T98, Sats 97% RA. 2D echo: preserved EF, no valvulopathy. Re-assessment by Cardiology completed without any concerns for arrhythmias or ACS. 05/16: Pt still reports significant dizziness with gait abnormalities. Discussed case with Internal medicine admitting physician at [facility] and patient will be transferred for MRI of the head. Procedures: Imaging and X-Rays 05/14/18 01:58 HEAD WO CONTRAST [CT] Stat 05/14/18 10:18 CHEST 2 VIEWS [RAD] Stat Cardiology Procedures 05/14/18 01:42 EKG NOW 05/14/18 03:16 Computer Programming Supervisor .Continuous 05/14/18 06:45 EKG QDX2@0600 05/14/18 14:33 Echocardiogram 2D - Complete NOW 05/15/18 07:45 EKG NOW 05/15/18 09:15 Echocardiogram 2D - Complete NOW Abnormal Labs: Abnormal Lab Results 05/14/18 05/14/18 05/15/18 Range/Units 01:22 01:22 06:30 RBC 4.08 L 4.05 L (4.40-5.70) M/uL Hgb 13.1 L 12.9 L (14.0-18.0) gm/dl Hct 37.6 L 38.1 L (42.0-52.0) % Sodium 135 L (136-145) mmol/L Creatinine 0.6 L (0.7-1.2) mg/dL Random Glucose 116 H (74-109) mg/dL Calcium 8.5 L (8.8-10.2) mg/dL Alkaline Phosphatase (40-129) U/L Total Protein 6.3 L (6.6-8.7) g/dL Albumin 3.9 L (4.0-5.0) g/dL Albumin/Globulin Ratio (1.1-1.8) 05/15/18 Range/Units 06:30 RBC (4.40-5.70) M/uL Hgb (14.0-18.0) gm/dl Hct (42.0-52.0) % Sodium (136-145) mmol/L Creatinine (0.7-1.2) mg/dL Random Glucose (74-109) mg/dL Calcium 8.1 L (8.8-10.2) mg/dL Alkaline Phosphatase 39 L (40-129) U/L Total Protein 5.5 L (6.6-8.7) g/dL Albumin 3.6 L (4.0-5.0) g/dL Albumin/Globulin Ratio 1.9 H (1.1-1.8) Condition at Discharge: (2) Stable Discharge Medications - Discharge Medications Home Medications: Ambulatory Orders Budesonide/Formoterol Fumarate [Symbicort 160-4.5 Mcg Inhaler] 2 inh IH BID [Last Taken 12/09/15] Trazodone HCl 50 mg PO DAILY 05/11/14 [Last Taken 12/09/15] Albuterol Sulfate [Ventolin Hfa] 02/21/18 [Last Taken Unknown] Guaifenesin [Mucinex] 600 mg PO tab 05/10/18 [Last Taken Unknown] Aspirin Enteric-Coated [Ecotrin (EC)] 325 mg PO DAILY tabec 05/16/18 [Last Taken Unknown] Lisinopril 20 mg PO DAILY #30 tab 05/16/18 [Last Taken Unknown] Discharge Plan - Discharge Instructions Diet at Discharge: Low Fat, Low Cholesterol, Low Salt Diet Additional Instructions: Follow up with primary care provider, Dr. Silveira, Monday at 1:50PM as scheduled. Quality Measures - Quality Measures Quality Measures: Advance Directives, Documentation of Current Medications in Medical Record, Elder Maltreatment Screen and Follow-Up Plan, Screening for High Blood Pressure and F/U Documented - Current Medications Quality Measure: Measure #130: Documentation of Current Medications Documentation of Current Medications: <Current Medications Documented/Reviewed> [G8427] - Blood Pressure Screening Quality Measure: Screening for High Blood Pressure and Follow-Up Documented Does Patient Have Any of the Following: Active Dx of HTN Blood Pressure Classification: Pre-Hypertensive BP Reading Systolic Measurement: 145 Diastolic Measurement: 85 Screening for High Blood Pressure: Patient Exclusion, Hx of HTN [G9744] - Advance Directives Quality Measure: Measure #47: Care Plan Advance Directives Established: No Advance Directives Information Provided To Patient: Yes Advance Directives on File: No Living Will: No Power of Tube Builder Airplane: No Advance Care Planning: <Care Plan/Decision Maker Documented; Discussed & Documented> [1883F] - Elder Abuse Suspicion Index Screening: Elder Abuse Suspicion Index Screening Rely on people for bathing, dressing, shopping, banking, etc: No Prevented from getting food, clothes, medication, etc: No Made to feel shamed or threatened by someone: No Forced to sign papers or use money against will: No Feel afraid, touched in ways not wanted or hurt physically: No Poor eye contact, withdrawn, malnourished, cuts or bruises: No Screening Result: Negative result EASI Reference Information: Sharon SURESH, Naila C, Stan D, Roxi Montalvo.Development and validation of a tool to assist physicians identification of elder abuse: The Elder Abuse Suspicion Index (EASI ). Journal of Elder Abuse and Neglect, 2008; 20 (3): 276-300. - Elder Maltreatment Screen Quality Measures: Elder Maltreatment Screen and Follow-Up Plan Elder Maltreatment Screen: <Negative, No Follow-Up Plan Required> [Q7467]
[2018-05-16] MEDS ORDERED: LISINOPRIL 20 MG TABLET PO SCH (10:00)
[2018-05-16] MEDS: BREO (FLUTICASONE/VILANTEROL) 200MCG/25MCG INHALER INH SCH (10:00)
[2018-05-16] MEDS: IPRATROPIUM/ALBUTEROL (0.5MG/3MG) NEB INH SCH (10:00)
[2018-05-16] MEDS: ASPIRIN 325 MG TAB ENTERIC-COATED PO SCH (10:09)
[2018-05-16] MEDS: FLUTICASONE PROPIONATE 50MCG NASAL 16 GM BTL SCH (10:10)
== END 2018-05-16 11:20 | disposition short-term general hospital (02) ==
LOC: ER 01:16 → MEDSURG 03:16
PROVIDERS: ADMIT Internal Medicine; ATTEND Internal Medicine
DX: R07.9 Chest pain, unspecified (principal); R42 Dizziness and giddiness; R11.2 Nausea with vomiting, unspecified; R06.02 Shortness of breath; J44.9 Chronic obstructive pulmonary disease, unspecified; I10 Essential (primary) hypertension; M19.90 Unspecified osteoarthritis, unspecified site; F12.90 Cannabis use, unspecified, uncomplicated; Z87.891 Personal history of nicotine dependence
CPT/HCPCS: 70450; 71046; 80048; 80053; 84484; 85025; 93005; 93010; 93306; 94640; 96374; 99217; 99220; 99285; J2405; J7030

== ENCOUNTER 2018-09-21 14:05 | Emergency (ER) | payer MEDICARE, SELFPAY ==
[2018-09-21] MEDS ORDERED: METHYLPREDNISOLONE PF 125MG/VIAL IVP ONE (14:28)
[2018-09-21] MEDS ORDERED: IPRATROPIUM/ALBUTEROL (0.5MG/3MG) NEB INH ONE (14:28)
[2018-09-21] MEDS ORDERED: AZITHROMYCIN 500 MG TABLET PO ONE (14:28)
--- NOTE | 2018-09-21 14:29 | Emergency Department Record ---
History of Present Illness - General Chief Complaint: Shortness of breath Stated Complaint: SYED Time Seen by Provider: 09/21/18 14:23 Source: Patient Mode of Arrival: Ambulatory Limitations: No limitations - History of Present Illness Initial Comments: 67 yo male presents with about two weeks of cough and shortens of breath. He has a long history of COPD. He has been coughing with some production but did not look at what he was coughing up. No fevers. No chest pain. No edema. No chest pain. He is not on any home oxygen. He is a former smoker. MD Complaint: Cough, Shortness of breath Onset/Timin -: Week(s) Severity: Moderate Quality: Other Improves With: Nothing Worsens With: Exertion Known History Of: COPD Associated Symptoms: Cough Treatments Prior to Arrival: Bronchodilator - Related Data Home Oxygen Therapy: No Home Medications Medication Instructions Recorded Confirmed Last Taken Carvedilol [Coreg] 3.125 mg PO BID 09/21/18 09/21/18 Unknown Lisinopril/Hydrochlorothiazide 1 each PO DAILY 09/21/18 09/21/18 Unknown [Lisinopril-Hctz 20-12.5 mg Tab] Previous Rx's Medication Instructions Recorded Azithromycin [Zithromax] 250 mg PO DAILY #4 tab 09/21/18 Prednisone [Prednisone 20Mg] 20 mg PO BID #10 tab 09/21/18 Allergies Allergy/AdvReac Type Severity Reaction Status Date / Time No Known Drug Allergies Allergy Unverified 05/10/18 17:36 Travel Screening - Travel/Exposure Within Last 30 Days Have you traveled within the last 30 days?: No Review of Systems Constitutional: Reports: Weakness. Denies: Chills, Fever, Malaise Eyes: Denies: Eye discharge ENT: Reports: Congestion, Throat pain Respiratory: Reports: Cough, Wheezes. Denies: Hemoptysis, Stridor Cardiovascular: Denies: Chest pain, Edema, Palpitations, Syncope Endocrine: Reports: Fatigue. Denies: Polydipsia, Polyuria Gastrointestinal: Denies: Abdominal pain, Constipation, Diarrhea, Nausea, Vomiting Genitourinary: Denies: Discharge, Dysuria, Frequency Musculoskeletal: Denies: Arthralgia, Back pain, Myalgia Skin: Denies: Bruising, Change in color, Rash Neurological: Denies: Headache, Numbness, Weakness Psychiatric: Denies: Anxiety Hematological/Lymphatic: Denies: Blood Clots, Easy bleeding, Easy bruising Past Medical History - SOCIAL HISTORY Smoking Status: Former smoker Alcohol Use: None Drug Use: None - RESPIRATORY Hx Respiratory Disorders: Yes Hx COPD: Yes Hx Pneumonia: Yes (yearly) Comment:: spontaneous pneumo - CARDIOVASCULAR Hx Cardio Disorders: Yes Hx Hypertension: Yes - NEURO Hx Neuro Disorders: No - GI Hx GI Disorders: No - Hx Genitourinary Disorders: No - ENDOCRINE Hx Endocrine Disorders: No - MUSCULOSKELETAL Hx Musculoskeletal Disorders: Yes Hx Arthritis: Yes - PSYCH Hx Psych Problems: Yes Hx Depression: Yes - HEMATOLOGY/ONCOLOGY Hx Hematology/Oncology Disorders: No Family Medical History Any Significant Family History?: Yes Hx Anxiety: Brother/Sister Hx Depression: Brother/Sister Hx Diabetes: Brother/Sister Hx Heart Disease: Mother, Grandparents Hx Resp Disorders: Father Physical Exam - General General Appearance: Alert, Oriented x3, Cooperative, No acute distress Limitations: No limitations - Head Head exam: Atraumatic, Normal inspection - Eye Eye exam: Normal appearance, PERRL. negative: Conjunctival injection - ENT ENT exam: Normal exam, Mucous membranes moist Ear exam: Normal external inspection Nasal Exam: Normal inspection Mouth exam: Normal external inspection - Neck Neck exam: Normal inspection - Respiratory Respiratory exam: Decreased breath sounds, Prolonged expiratory, Rhonchi, Wheezes. negative: Normal lung sounds bilaterally, Accessory muscle use, Chest wall tenderness, Respiratory distress - Cardiovascular Cardiovascular Exam: Regular rate, Normal rhythm, Normal heart sounds Peripheral Pulses: 2+: Radial (R), Radial (L) - GI/Abdominal GI/Abdominal exam: Soft. negative: Tenderness - Rectal Rectal exam: Deferred - exam: Deferred - Extremities Extremities exam: Normal inspection, Full ROM, Normal capillary refill. negative: Pedal edema, Tenderness - Back Back exam: Denies: CVA tenderness (R), CVA tenderness (L) - Neurological Neurological exam: Alert, Oriented X3 - Psychiatric Psychiatric exam: Normal affect, Normal mood - Skin Skin exam: Dry, Intact, Normal color, Warm Course - Reevaluation(s) Reevaluation #1: 09/21/18 15:11 No acute changes on the labs. 09/21/18 15:34 CXR: Hyperinflation without acute infiltrate. 09/21/18 15:37 The patient is doing well at [place] We discussed home care, close followup and reasons to return to the ED Medical Decision Making - Lab Data Result diagrams: 09/21/18 14:20 09/21/18 14:20 Disposition Disposition: Discharge Clinical Impression: COPD (chronic obstructive pulmonary disease) Disposition: Home, Self-Care Condition: (1) Good Instructions: COPD (Chronic Obstructive Pulmonary Disease) (ED) Additional Instructions: Call you doctor for close follow up Return if worse, fever, vomiting, short of breath, chest pain Take the antibiotic and steroid as directed Prescriptions: Azithromycin [Zithromax] 250 mg PO DAILY #4 tab Prednisone [Prednisone 20Mg] 20 mg PO BID #10 tab Forms: Patient Portal Access Time of Disposition: 15:34 Quality - Quality Measures Quality Measures: N/A - Blood Pressure Screening Does Patient Have Any of the Following: Active Dx of HTN Systolic Measurement: ~ Screening for High Blood Pressure: Patient Exclusion, Hx of HTN [G9744]
[2018-09-21 14:45] LABS: BASO % 0.3 % (0-6); EOS % 1.7 % (0-6); GRAN % 69.5 % (47-80); HEMOGLOBIN 14.9 gm/dl (14.0-18.0); LYMPH % 20.5 % (16-45); MEAN CELL VOLUME 92.1 fl (81-97); MEAN CORPUSCULAR HEMOGLOBIN 32.7 pg (27-33); MEAN CORPUSCULAR HGB CONC 35.5 g/dl (32-36); MEAN PLATELET VOLUME 10.4 fl (7.4-10.4); PLATELET COUNT 241 K/uL (130-400); RED BLOOD COUNT 4.56 M/uL (4.40-5.70); RED CELL DISTRIBUTION WIDTH 12.4 % (11.5-14.5); WHITE BLOOD COUNT W/O DIFF 7.9 K/uL (4.2-12.2)
[2018-09-21 14:55] LABS: BLOOD UREA NITROGEN 15 mg/dL (8-23); CREATININE 0.7 mg/dL (0.7-1.2); EST GLOMERULAR FILTRATION RATE > 60 mL/min
[2018-09-21 14:58] LABS: GLUCOSE,RANDOM 89 mg/dL (74-109)
--- NOTE | 2018-09-22 09:58 | RADIOLOGY REPORT ---
DATE: 09/21/2018. EXAM: TWO-VIEW CHEST. HISTORY: DIFFICULTY BREATHING. TECHNIQUE: Frontal and lateral views of the chest were performed. COMPARISON: 05/14/2018. FINDINGS: Heart size is normal. The lungs are hyperinflated. No acute type infiltrate or pleural effusion. The osseous structures are normal. IMPRESSION: HYPERINFLATED LUNGS. NO ACUTE TYPE INFILTRATE OR PLEURAL EFFUSION. JOB NUMBER: [id number] MTDD
== END 2018-09-21 15:50 | disposition home or self-care (01) ==
LOC: ER 14:05
DX: J44.9 Chronic obstructive pulmonary disease, unspecified (principal); R06.02 Shortness of breath; I10 Essential (primary) hypertension; Z87.891 Personal history of nicotine dependence
CPT/HCPCS: 71046; 80048; 85025; 94640; 96374; 99284; J2930

== ENCOUNTER 2018-10-04 02:40 | Observation (INO) | payer MEDICARE, SELFPAY ==
[2018-10-04] MEDS ORDERED: IPRATROPIUM/ALBUTEROL (0.5MG/3MG) NEB INH ONE (02:55)
[2018-10-04] MEDS ORDERED: METHYLPREDNISOLONE PF 125MG/VIAL IVP ONE (02:55)
[2018-10-04] MEDS ORDERED: ASPIRIN 81 MG CHEWABLE TABLET PO ONE (02:56)
--- NOTE | 2018-10-04 03:04 | Emergency Department Record ---
History of Present Illness - General Chief Complaint: Shortness of breath Stated Complaint: SYED Time Seen by Provider: 10/04/18 02:47 Source: Patient Mode of Arrival: EMS Limitations: No limitations - History of Present Illness Initial Comments: pt became sob in the night w chest tightness. he felt like it was a panic attack and his copd. he is currently being evaluated for blockages in his carotid arteries MD Complaint: Chest pain, Cough, Shortness of breath Onset/Timin -: Hour(s) Radiation: Left arm Severity: Moderate Severity scale (1-10): 4 Quality: Other Consistency: Constant Improves With: Nothing Worsens With: Coughing Known History Of: COPD Context: Recent URI Associated Symptoms: Chest pain, Cough Treatments Prior to Arrival: Bronchodilator - Related Data Home Oxygen Therapy: No Home Medications Medication Instructions Recorded Confirmed Last Taken Atorvastatin Calcium 10 mg PO DAILY 10/04/18 10/04/18 10/03/18 Baclofen 10 mg PO BID PRN 10/04/18 10/04/18 Unknown Carvedilol [Coreg] 3.125 mg PO BID 10/04/18 10/04/18 10/03/18 Allergies Allergy/AdvReac Type Severity Reaction Status Date / Time No Known Drug Allergies Allergy Unverified 05/10/18 17:36 Travel Screening - Travel/Exposure Within Last 30 Days Have you traveled within the last 30 days?: No - Travel Symptoms Symptom Screening: None Review of Systems Reviewed: No additional complaints except as noted below Constitutional: Reports: As per HPI. Denies: Chills, Fever, Malaise, Night sweats, Weakness, Weight change Eyes: Reports: As per HPI. Denies: Eye discharge, Eye pain, Photophobia, Vision change ENT: Reports: As per HPI. Denies: Congestion, Dental pain, Ear pain, Epistaxis , Hearing loss, Throat pain Respiratory: Reports: As per HPI, Cough, Dyspnea. Denies: Hemoptysis, Stridor, Wheezes Cardiovascular: Reports: As per HPI. Denies: Arrhythmia, Chest pain, Dyspnea on exertion, Edema, Murmurs, Orthopnea, Palpitations, Paroxysmal nocturnal dyspnea, Rheumatic Fever, Syncope Endocrine: Reports: As per HPI. Denies: Fatigue, Heat or cold intolerance, Polydipsia, Polyuria Gastrointestinal: Reports: As per HPI. Denies: Abdominal pain, Constipation, Diarrhea, Hematemesis, Hematochezia, Melena, Nausea, Vomiting Genitourinary: Reports: As per HPI. Denies: Dysuria, Frequency, Hematuria, Incontinence, Retention, Testicular pain, Testicular mass, Urgency Musculoskeletal: Reports: As per HPI. Denies: Arthralgia, Back pain, Gout, Joint swelling, Myalgia, Neck pain Skin: Reports: As per HPI. Denies: Bruising, Change in color, Change in hair/ nails, Lesions, Pruritus, Rash Neurological: Reports: As per HPI. Denies: Abnormal gait, Confusion, Headache, Numbness, Paresthesias, Seizure, Tingling, Tremors, Vertigo, Weakness Psychiatric: Reports: As per HPI. Denies: Anxiety, Auditory hallucinations, Depression, Homicidal thoughts, Suicidal thoughts, Visual hallucinations Hematological/Lymphatic: Reports: As per HPI. Denies: Anemia, Blood Clots, Easy bleeding, Easy bruising, Swollen glands Past Medical History - SOCIAL HISTORY Smoking Status: Former smoker Alcohol Use: Rare Drug Use: Heavy Drug Use Detail:: Marijuana - RESPIRATORY Hx Respiratory Disorders: Yes Hx COPD: Yes Hx Pneumonia: Yes (yearly) Comment:: spontaneous pneumo - CARDIOVASCULAR Hx Cardio Disorders: Yes Hx Hypertension: Yes - NEURO Hx Neuro Disorders: No - GI Hx GI Disorders: No - Hx Genitourinary Disorders: No - ENDOCRINE Hx Endocrine Disorders: No - MUSCULOSKELETAL Hx Musculoskeletal Disorders: Yes Hx Arthritis: Yes - PSYCH Hx Psych Problems: Yes Hx Depression: Yes - HEMATOLOGY/ONCOLOGY Hx Hematology/Oncology Disorders: No Family Medical History Any Significant Family History?: Yes Hx Anxiety: Brother/Sister Hx Depression: Brother/Sister Hx Diabetes: Brother/Sister Hx Heart Disease: Mother, Grandparents Hx Resp Disorders: Father Physical Exam - General General Appearance: Alert, Oriented x3, Cooperative, Mild distress - Head Head exam: Normal inspection - Eye Eye exam: Normal appearance, PERRL, EOMI Pupils: Normal accommodation - ENT ENT exam: Normal exam, Mucous membranes moist, Normal external ear exam, Normal orophraynx Ear exam: Normal external inspection. negative: External canal tenderness Nasal Exam: Normal inspection. negative: Discharge, Sinus tenderness Mouth exam: Normal external inspection, Tongue normal Teeth exam: Normal inspection. negative: Dental caries Throat exam: Normal inspection. negative: Tonsillar erythema, Tonsillar exudate - Neck Neck exam: Normal inspection, Full ROM. negative: Tenderness - Respiratory Respiratory exam: Normal lung sounds bilaterally. negative: Respiratory distress - Cardiovascular Cardiovascular Exam: Regular rate, Normal rhythm, Normal heart sounds - GI/Abdominal GI/Abdominal exam: Soft, Normal bowel sounds. negative: Tenderness - Rectal Rectal exam: Deferred - exam: Deferred - Extremities Extremities exam: Normal inspection, Full ROM, Normal capillary refill. negative: Tenderness - Back Back exam: Reports: Normal inspection, Full ROM. Denies: Muscle spasm, Rash noted, Tenderness - Neurological Neurological exam: Alert, CN II-XII intact, Normal gait, Oriented X3 - Psychiatric Psychiatric exam: Normal affect, Normal mood - Skin Skin exam: Dry, Intact, Normal color, Warm Course Vital Signs 10/04/18 10/04/18 02:42 02:48 Temperature 97.8 F Pulse Rate 85 Pulse Rate [ 80 [employer] ] Respiratory 26 H 24 Rate Blood Pressure 202/103 Blood Pressure 202/103 [Right Arm] Pulse Ox 95 95 - Reevaluation(s) Reevaluation #1: 10/04/18 03:34 ntg took pain from a 2 to a 1. pts breathing is better. pt has seed dr fisher recently and was scheduled to have a stress test but has not had it. hre states his carotids have 89% blockage Medical Decision Making - Lab Data Result diagrams: 10/04/18 02:33 10/04/18 02:55 Disposition Disposition: Admit Clinical Impression: COPD with acute exacerbation, Chest tightness Disposition: Still a Patient at [facility] Decision to Admit: Admit from ER Decision to Admit Date: 10/04/18 Decision to Admit Time: 03:34 Forms: Patient Portal Access Quality - Quality Measures Quality Measures: N/A - Blood Pressure Screening Does Patient Have Any of the Following: Active Dx of HTN Blood Pressure Classification: Hypertensive Reading Systolic Measurement: 202 Diastolic Measurement: 103 Screening for High Blood Pressure: Patient Exclusion, Hx of HTN [[id number]]
[2018-10-04 03:06] LABS: BASO % 0.1 % (0-6); GRAN % 63.2 % (47-80); HEMATOCRIT 40.7 % (42.0-52.0); HEMOGLOBIN 14.4 gm/dl (14.0-18.0); LYMPH % 24.4 % (16-45); MEAN CELL VOLUME 91.7 fl (81-97); MEAN CORPUSCULAR HEMOGLOBIN 32.4 pg (27-33); MEAN CORPUSCULAR HGB CONC 35.4 g/dl (32-36); MEAN PLATELET VOLUME 9.8 fl (7.4-10.4); MONO % 10.3 % (0-9); PLATELET COUNT 252 K/uL (130-400); RED BLOOD COUNT 4.44 M/uL (4.40-5.70); RED CELL DISTRIBUTION WIDTH 12.4 % (11.5-14.5)
[2018-10-04] MEDS: NITROGLYCERIN 0.4MG SL TABLET #25 BTL SL PRN ×3 (03:12→03:23)
[2018-10-04 03:17] LABS: BLOOD UREA NITROGEN 12 mg/dL (8-23); CREATININE 0.6 mg/dL (0.7-1.2); EST GLOMERULAR FILTRATION RATE > 60 mL/min
[2018-10-04 03:18] LABS: TOTAL PROTEIN 6.6 g/dL (6.6-8.7)
[2018-10-04 03:20] LABS: GLUCOSE,RANDOM 105 mg/dL (74-109)
[2018-10-04 03:22] LABS: ALB/GLOB RATIO 1.4 (1.1-1.8); ALBUMIN 3.9 g/dL (4.0-5.0); ALT/SGPT 21 U/L (<41); AST/SGOT 15 U/L (10.0-50.0)
[2018-10-04 03:23] LABS: ALKALINE PHOSPHATASE 74 U/L (55-149); CREATINE PHOSPHOKINASE 47 U/L (39-308)
[2018-10-04 03:25] LABS: CKMB 3.9 ng/mL (<6.73)
[2018-10-04] MEDS ORDERED: ACETAMINOPHEN 500 MG TABLET PO PRN (04:12)
[2018-10-04] MEDS ORDERED: ALBUTEROL SULFATE (0.083%) 2.5 MG/3 ML NEB INH PRN (04:12)
[2018-10-04] MEDS ORDERED: IPRATROPIUM/ALBUTEROL (0.5MG/3MG) NEB INH PRN (04:12)
[2018-10-04] MEDS ORDERED: METHYLPREDNISOLONE PF 125MG/VIAL IVP SCH (04:12)
[2018-10-04] MEDS ORDERED: BACLOFEN 10 MG TABLET PO PRN (04:12)
--- NOTE | 2018-10-04 07:34 | History & Physical ---
History of Present Illness - Date of Service Date of Service for History & Physical: 10/04/18 - History of Present Illness Admitting Diagnosis: acute exacerbation copd and chest tightness History of Present Illness: Mr. Acevedo is a 68 year-old male who presented to the ED on 10/04/18 via EMS with c/o chest tightness with radiation to his left arm and shortness of breath. He stated that it felt like a panic attack. He is currently being evaluated for carotid blockages, and his nitro man did order a stress test that he has not completed yet. His history includes: COPD, ex-smoker, spontaneous pneumo, HTN, arthritis, and depression. In the ED, his vitals were: BP 202/103, HR 85, RR 26, T 97.8F, and 95% on room air. Nitroglycerine was administered and took his chest pain from a 2 to a 1. EKG was unchanged from previous. CBC, CMP, d-dimer, and troponins were unremarkable. Chest xray was negative for acute process. He was admitted for COPD exacerbation. Plan to monitor cardiac enzymes, tele, administer respiratory treatments. 10/04/18: Pt. is resting in bed. He just finished a duo neb treatment and he reports improved work of breathing. His oxygen is 96% on room air. He remains in NSR on tele. He states that he has lost almost 15 pounds within the last 30 days. He has been seen in [facility] and the ED several times since 01/2018 for COPD exacerbations, and he was admitted here from 05/10-05/14/18 for COPD and r/o chest pain. He was seen by Dr. Coleman at that time, stress test was recommended OP and is scheduled to be completed next week. He has been seen by pulmonology in the past, however, he does not recall how long ago or who he saw. Will continue to monitor troponins, lipid profile is pending. Ordered dietary consult- explained to pt that his increased work of breathing is likely burning more calories than he is consuming, he eats mostly vegan diet at home. PCP: Dr. Fry Certified Driver Examiner: Dr. Hancock Travel Screening - Travel/Exposure Within Last 30 Days Have you traveled within the last 30 days?: No - Travel/Exposure Within Last Year Have you traveled outside the [place] in the last year?: No - Additonal Travel Details Have you been exposed to anyone with a communicable illness?: No - Travel Symptoms Symptom Screening: None Review of Systems Constitutional: Reports: As per HPI. Denies: Chills, Fever, Malaise, Night sweats, Weakness, Weight change Eyes: Reports: As per HPI. Denies: Eye discharge, Eye pain, Photophobia, Vision change ENT: Reports: As per HPI. Denies: Congestion, Dental pain, Ear pain, Epistaxis , Hearing loss, Throat pain Respiratory: Reports: As per HPI, Cough, Dyspnea. Denies: Hemoptysis, Stridor, Wheezes Cardiovascular: Reports: As per HPI. Denies: Arrhythmia, Chest pain, Dyspnea on exertion, Edema, Murmurs, Orthopnea, Palpitations, Paroxysmal nocturnal dyspnea, Rheumatic Fever, Syncope Endocrine: Reports: As per HPI. Denies: Fatigue, Heat or cold intolerance, Polydipsia, Polyuria Gastrointestinal: Reports: As per HPI. Denies: Abdominal pain, Constipation, Diarrhea, Hematemesis, Hematochezia, Melena, Nausea, Vomiting Genitourinary: Reports: As per HPI. Denies: Dysuria, Frequency, Hematuria, Incontinence, Retention, Testicular pain, Testicular mass, Urgency Musculoskeletal: Reports: As per HPI. Denies: Arthralgia, Back pain, Gout, Joint swelling, Myalgia, Neck pain Skin: Reports: As per HPI. Denies: Bruising, Change in color, Change in hair/ nails, Lesions, Pruritus, Rash Neurological: Reports: As per HPI. Denies: Abnormal gait, Confusion, Headache, Numbness, Paresthesias, Seizure, Tingling, Tremors, Vertigo, Weakness Psychiatric: Reports: As per HPI. Denies: Anxiety, Auditory hallucinations, Depression, Homicidal thoughts, Suicidal thoughts, Visual hallucinations Hematological/Lymphatic: Reports: As per HPI. Denies: Anemia, Blood Clots, Easy bleeding, Easy bruising, Swollen glands Past Medical History - SOCIAL HISTORY Smoking Status: Former smoker Alcohol Use: Occasional Drug Use: Occasional Drug Use Detail:: Marijuana - RESPIRATORY Hx Respiratory Disorders: Yes Hx COPD: Yes Hx Pneumonia: Yes (yearly) Comment:: spontaneous pneumo - CARDIOVASCULAR Hx Cardio Disorders: Yes Hx Hypertension: Yes - NEURO Hx Neuro Disorders: No - GI Hx GI Disorders: No - Hx Genitourinary Disorders: No - ENDOCRINE Hx Endocrine Disorders: No - MUSCULOSKELETAL Hx Musculoskeletal Disorders: Yes Hx Arthritis: Yes - PSYCH Hx Psych Problems: Yes Hx Depression: Yes - HEMATOLOGY/ONCOLOGY Hx Hematology/Oncology Disorders: No Family Medical History Any Significant Family History?: Yes Hx Anxiety: Brother/Sister Hx Depression: Brother/Sister Hx Diabetes: Brother/Sister Hx Heart Disease: Mother, Grandparents Hx Resp Disorders: Father H&P Meds/Allergies - Allergies Allergies: Allergies Allergy/AdvReac Type Severity Reaction Status Date / Time No Known Drug Allergies Allergy Unverified 05/10/18 17:36 - Home Medications Home Medications Medication Instructions Recorded Confirmed Last Taken Atorvastatin Calcium 10 mg PO DAILY 10/04/18 10/04/18 10/03/18 Baclofen 10 mg PO BID PRN 10/04/18 10/04/18 Unknown Carvedilol [Coreg] 3.125 mg PO BID 10/04/18 10/04/18 10/03/18 - Active Medications Active Medications: Current Medications Acetaminophen (Tylenol 500mg Tab) 1,000 mg PO Q6H PRN PRN Reason: PAIN - MILD(1-4)/FEVER Albuterol Sulfate (Albuterol Sulfate) 2.5 mg INH RESP.Q4H PRN PRN Reason: DIFFICULTY IN BREATHING Albuterol/Ipratropium (Duoneb) 3 ml INH RESP.Q6H PRN PRN Reason: WHEEZING Aspirin (Ecotrin (Ec)) 325 mg PO DAILY [facility] Atorvastatin Calcium (Lipitor) 10 mg PO DAILY [facility] Baclofen (Lioresal) 10 mg PO BID PRN PRN Reason: SPASMS Carvedilol (Coreg) 3.125 mg PO BID [facility] Hydrochlorothiazide (Hctz 12.5mg) 12.5 mg PO DAILY [facility] Lisinopril (Zestril) 20 mg PO DAILY [facility] Methylprednisolone Sodium Succinate (Solu-Medrol) 60 mg IVP Q8H [facility] Last Admin: 10/04/18 04:48 Dose: Not Given Trazodone HCl (Desyrel) 50 mg PO DAILY [facility] Physical Exam - Vital Signs Vital Signs: Vital Signs - Last 24 Hrs Temp Pulse Pulse Resp BP BP Pulse Ox 10/04/18 06:12 66 12 97 10/04/18 05:26 97.5 F L 66 18 152/72 98 10/04/18 05:20 67 18 01/10/19 04:15 97.5 F L 72 20 152/72 98 10/04/18 04:07 65 24 151/81 97 10/04/18 03:27 75 22 169/101 95 10/04/18 03:22 79 16 147/99 95 10/04/18 03:17 78 20 151/76 95 10/04/18 03:14 69 18 192/90 97 10/04/18 02:48 97.8 F 78 24 202/103 95 10/04/18 02:42 85 26 H 202/103 95 - General General Appearance: Alert, Oriented x3, Cooperative, No acute distress Limitations: No limitations - Head Head exam: Normal inspection - Eye Eye exam: Normal appearance, PERRL, EOMI Pupils: Normal accommodation - ENT ENT exam: Normal exam, Mucous membranes moist, Normal external ear exam, Normal orophraynx Ear exam: Normal external inspection. negative: External canal tenderness Nasal Exam: Normal inspection. negative: Discharge, Sinus tenderness Mouth exam: Normal external inspection, Tongue normal Teeth exam: Normal inspection. negative: Dental caries Throat exam: Normal inspection. negative: Tonsillar erythema, Tonsillar exudate - Neck Neck exam: Normal inspection, Full ROM. negative: Tenderness - Respiratory Respiratory exam: Wheezes (RLL). negative: Respiratory distress - Cardiovascular Cardiovascular Exam: Regular rate, Normal rhythm, Normal heart sounds - GI/Abdominal GI/Abdominal exam: Soft, Normal bowel sounds. negative: Tenderness - Rectal Rectal exam: Deferred - exam: Deferred - Extremities Extremities exam: Normal inspection, Full ROM, Normal capillary refill. negative: Tenderness - Back Back exam: Reports: Normal inspection, Full ROM. Denies: Muscle spasm, Rash noted, Tenderness - Neurological Neurological exam: Alert, CN II-XII intact, Normal gait, Oriented X3 - Psychiatric Psychiatric exam: Normal affect, Normal mood - Skin Skin exam: Dry, Intact, Normal color, Warm Results - Labs Result Diagrams: 10/04/18 02:33 10/04/18 02:55 Labs Last 24 Hours: Laboratory Results - last 24 hr 10/04/18 10/04/18 10/04/18 02:33 02:33 02:33 WBC 9.0 RBC 4.44 Hgb 14.4 Hct 40.7 L MCV 91.7 MCH 32.4 MCHC 35.4 RDW 12.4 Plt Count 252 MPV 9.8 Gran % 63.2 Lymphocytes % 24.4 Monocytes % 10.3 H Eosinophils % 2.0 Basophils % 0.1 D-Dimer 0.22 Sodium 132 L Potassium 4.2 Chloride 96 L Carbon Dioxide 25.0 Anion Gap 11.0 BUN 12 Creatinine 0.6 L Estimated GFR > 60 Random Glucose 105 Calcium 8.8 Total Bilirubin 0.30 AST 15 ALT 21 Alkaline Phosphatase 74 Creatine Kinase 47 CK-MB (CK-2) 3.9 Troponin T < 0.010 NT-Pro-B Natriuret Pep 462.10 H Total Protein 6.6 Albumin 3.9 L Globulin 2.7 Albumin/Globulin Ratio 1.4 10/04/18 02:55 WBC RBC Hgb Hct MCV MCH MCHC RDW Plt Count MPV Gran % Lymphocytes % Monocytes % Eosinophils % Basophils % D-Dimer Sodium Cancelled Potassium Cancelled Chloride Cancelled Carbon Dioxide Cancelled Anion Gap Cancelled BUN Cancelled Creatinine Cancelled Estimated GFR Cancelled Random Glucose Cancelled Calcium Cancelled Total Bilirubin Cancelled AST Cancelled ALT Cancelled Alkaline Phosphatase Cancelled Creatine Kinase CK-MB (CK-2) Troponin T NT-Pro-B Natriuret Pep Cancelled Total Protein Cancelled Albumin Cancelled Globulin Cancelled Albumin/Globulin Ratio Cancelled - Imaging and Cardiology Chest x-ray Status: Image reviewed (No acute process) VTE H&P Assessment - Risk for VTE Risk for VTE: Yes Risk Level: Low Risk Assessment Date: 10/04/18 Risk Assessment Time: 07:34 VTE Orders Placed or Will Be Placed: Yes Plan - Detailed Diagnosis and Plan (1) COPD with acute exacerbation Current Visit: Yes Status: Acute Base Code: J44.1 - CHRONIC OBSTRUCTIVE PULMONARY DISEASE W (ACUTE) EXACERBATION Comment: 10/04/18: -CXR no acute process, chronic emphysema changes -Solumedrol 60mg IV q8h, duo nebs qid, albuterol neb q4h prn -96% oxygen on 2L nc (2) Chest pain Current Visit: No Status: Acute Qualifiers: Chest pain type: unspecified Qualified Code(s): R07.9 - Chest pain, unspecified Base Code: R07.9 - CHEST PAIN, UNSPECIFIED Comment: 05/16/2018 - EKG normal, no acute change on monitor,Troponins x 1 negative - CXR: emphysetamous changes, no acute process noted. - Full dose aspirin, Lisinopril 40mg, Coreg 3.125mg bid - Will continue to monitor cardiac enzymes and tele (3) HTN (hypertension) Current Visit: No Status: Acute Base Code: I10 - ESSENTIAL (PRIMARY) HYPERTENSION Comment: 10/04/18: -BP upon admission was 202/103, now 152/72 -continue lisinopril 40mg daily and coreg 3.125mg bid, hctz 25mg daily (4) Unintentional weight loss Current Visit: Yes Status: Acute Base Code: R63.4 - ABNORMAL WEIGHT LOSS Comment: 10/04/18: -Pt. report of 15 pound weight loss within last 1-2 months -Likely secondary to increased caloric demands with COPD exacerbation -Nutritional consult ordered (5) At risk for venous thromboembolism (VTE) Current Visit: No Status: Acute Base Code: Z91.89 - OTH PERSONAL RISK FACTORS, NOT ELSEWHERE CLASSIFIED Comment: 10/04/18: -Lovenox 40mg sc QD -Nursing to encourage ambulation. (6) Full code status Current Visit: No Status: Acute Base Code: Z78.9 - OTHER SPECIFIED HEALTH STATUS Comment: 10/04/18: -Pt. is a full code
[2018-10-04] MEDS ORDERED: TRAZODONE 50 MG TABLET PO SCH ×2 (10:00→22:00)
[2018-10-04] MEDS ORDERED: HYDROCHLOROTHIAZIDE 12.5 MG CAPSULE PO SCH (10:00)
[2018-10-04] MEDS ORDERED: LISINOPRIL 20 MG TABLET PO SCH (10:00)
[2018-10-04] MEDS: ATORVASTATIN 20 MG TABLET PO SCH (10:11)
[2018-10-04] MEDS: HYDROCHLOROTHIAZIDE 25 MG TABLET PO SCH (10:11)
[2018-10-04] MEDS: CARVEDILOL 3.125 MG TABLET PO SCH ×2 (10:11→22:19)
[2018-10-04] MEDS: LISINOPRIL 20 MG TABLET PO SCH (10:11)
[2018-10-04] MEDS: ASPIRIN 325 MG TAB ENTERIC-COATED PO SCH (10:11)
[2018-10-04] MEDS: IPRATROPIUM/ALBUTEROL (0.5MG/3MG) NEB INH SCH ×3 (11:04→20:12)
[2018-10-04] MEDS: METHYLPREDNISOLONE PF 125MG/VIAL IVP SCH ×2 (14:21→22:17)
[2018-10-04] MEDS ORDERED: ENOXAPARIN 40 MG/0.4 ML SYR SQ SCH (22:00)
[2018-10-05] MEDS: IPRATROPIUM/ALBUTEROL (0.5MG/3MG) NEB INH SCH ×2 (05:41→10:20)
[2018-10-05 06:31] LABS: HEMATOCRIT 38.7 % (42.0-52.0); HEMOGLOBIN 13.6 gm/dl (14.0-18.0); LYMPH % 4.6 % (16-45); MEAN CELL VOLUME 91.7 fl (81-97); MEAN CORPUSCULAR HEMOGLOBIN 32.2 pg (27-33); MEAN CORPUSCULAR HGB CONC 35.1 g/dl (32-36); MEAN PLATELET VOLUME 9.6 fl (7.4-10.4); MONO % 2.7 % (0-9); PLATELET COUNT 268 K/uL (130-400); RED BLOOD COUNT 4.22 M/uL (4.40-5.70); RED CELL DISTRIBUTION WIDTH 12.3 % (11.5-14.5)
[2018-10-05 06:48] LABS: WHITE BLOOD COUNT W/O DIFF 22.8 K/uL (4.2-12.2)
[2018-10-05 06:53] LABS: ALB/GLOB RATIO 1.5 (1.1-1.8); ALBUMIN 3.5 g/dL (4.0-5.0); ALKALINE PHOSPHATASE 59 U/L (55-149); ALT/SGPT 19 U/L (<41); AST/SGOT 12 U/L (10.0-50.0); BLOOD UREA NITROGEN 22 mg/dL (8-23); CREATININE 0.7 mg/dL (0.7-1.2); EST GLOMERULAR FILTRATION RATE > 60 mL/min; GLUCOSE,RANDOM 162 mg/dL (74-109); TOTAL PROTEIN 5.8 g/dL (6.6-8.7)
[2018-10-05 07:10] LABS: ANISOCYTOSIS 1+; PLATELET ESTIMATE NORMAL (NORMAL)
--- NOTE | 2018-10-05 07:20 | RADIOLOGY REPORT ---
EXAM: CHEST, TWO VIEWS HISTORY: DIFFICULTY BREATHING. TECHNIQUE: Frontal and lateral views of the chest were performed. FINDINGS: The heart size is normal. The lungs are hyperinflated. There is severe underlying emphysematous change. No infiltrate or pleural effusion. IMPRESSION: HYPERINFLATED LUNGS WITH SEVERE UNDERLYING EMPHYSEMATOUS CHANGE. NO SUPERIMPOSED INFILTRATE OR PLEURAL EFFUSION. JOB NUMBER: [id number] MTDD
[2018-10-05] MEDS ORDERED: PREDNISONE 20 MG TAB PO SCH (08:00)
[2018-10-05] MEDS: LISINOPRIL 20 MG TABLET PO SCH (10:32)
[2018-10-05] MEDS: CARVEDILOL 3.125 MG TABLET PO SCH (10:33)
[2018-10-05] MEDS: HYDROCHLOROTHIAZIDE 25 MG TABLET PO SCH (10:33)
[2018-10-05] MEDS: ASPIRIN 325 MG TAB ENTERIC-COATED PO SCH (10:33)
[2018-10-05] MEDS: ATORVASTATIN 20 MG TABLET PO SCH (10:35)
--- NOTE | 2018-10-05 10:35 | Discharge Summary ---
Providers Discharge Summary Date: 10/05/18 Date of admission: 10/04/18 04:08 Expected Date of Discharge: 10/05/18 Attending physician: RAHUL ROWELL Primary care physician: Dr. Fry Physical Exam - Vital Signs Vital Signs: Vital Signs - Last 24 Hrs Temp Pulse Pulse Pulse Resp BP BP 10/05/18 10:20 92 H 18 10/05/18 06:00 97.8 F 92 H 78 18 138/64 10/05/18 05:41 87 18 10/04/18 22:00 87 80 18 168/83 10/04/18 21:00 87 80 18 10/04/18 20:14 88 18 10/04/18 19:37 97.5 F L 152/72 10/04/18 18:00 97.5 F L 87 18 155/79 10/04/18 15:13 90 22 10/04/18 14:00 97.0 F L 90 16 158/77 10/04/18 11:04 86 18 Pulse Ox 10/05/18 10:20 93 L 10/05/18 06:00 95 10/05/18 05:41 97 10/04/18 22:00 98 10/04/18 21:00 10/04/18 20:14 97 10/04/18 19:37 10/04/18 18:00 96 10/04/18 15:13 98 10/04/18 14:00 95 10/04/18 11:04 99 - General General Appearance: Alert, Oriented x3, Cooperative, No acute distress Limitations: No limitations - Head Head exam: Normal inspection - Eye Eye exam: Normal appearance, PERRL, EOMI Pupils: Normal accommodation - ENT ENT exam: Normal exam, Mucous membranes moist, Normal external ear exam, Normal orophraynx Ear exam: Normal external inspection. negative: External canal tenderness Nasal Exam: Normal inspection. negative: Discharge, Sinus tenderness Mouth exam: Normal external inspection, Tongue normal Teeth exam: Normal inspection. negative: Dental caries Throat exam: Normal inspection. negative: Tonsillar erythema, Tonsillar exudate - Neck Neck exam: Normal inspection, Full ROM. negative: Tenderness - Respiratory Respiratory exam: Wheezes (RLL). negative: Respiratory distress - Cardiovascular Cardiovascular Exam: Regular rate, Normal rhythm, Normal heart sounds - GI/Abdominal GI/Abdominal exam: Soft, Normal bowel sounds. negative: Tenderness - Rectal Rectal exam: Deferred - exam: Deferred - Extremities Extremities exam: Normal inspection, Full ROM, Normal capillary refill. negative: Tenderness - Back Back exam: Reports: Normal inspection, Full ROM. Denies: Muscle spasm, Rash noted, Tenderness - Neurological Neurological exam: Alert, CN II-XII intact, Normal gait, Oriented X3 - Psychiatric Psychiatric exam: Normal affect, Normal mood - Skin Skin exam: Dry, Intact, Normal color, Warm Hospitalization - Hospitalization Admission Diagnosis: acute exacerbation copd and chest tightness - Problem List/Discharge Diagnosis (1) COPD with acute exacerbation Current Visit: Yes Status: Acute Base Code: J44.1 - CHRONIC OBSTRUCTIVE PULMONARY DISEASE W (ACUTE) EXACERBATION Comment: 10/05/18: -CXR no acute process, chronic severe emphysema changes -Solumedrol changed to 20mg prednisone bid today, duo nebs qid, albuterol neb q4h prn -home oxygen qualifier completed and pt does not qualify -case management working to set up pulmonary rehab/pulmonology f/u (2) Chest pain Current Visit: No Status: Acute Discharge Diagnosis: Chest pain type: unspecified Qualified Code(s): R07.9 - Chest pain, unspecified Base Code: R07.9 - CHEST PAIN, UNSPECIFIED Comment: 10/05/18: - EKG normal, no acute change on monitor,Troponins x 3 negative - CXR: emphysetamous changes, no acute process noted. - Full dose aspirin, Lisinopril 40mg, Coreg 3.125mg bid - Pt has chemical stress test with [facility] cardiology in 1 wk (3) HTN (hypertension) Current Visit: No Status: Acute Base Code: I10 - ESSENTIAL (PRIMARY) HYPERTENSION Comment: 10/05/18: -BP upon admission was 202/103, now 145/64 -continue lisinopril 40mg daily and coreg 3.125mg bid, hctz 25mg daily (4) Unintentional weight loss Current Visit: Yes Status: Acute Base Code: R63.4 - ABNORMAL WEIGHT LOSS Comment: 10/05/18: -Pt. report of 15 pound weight loss within last 1-2 months -Likely secondary to increased caloric demands with COPD exacerbation -Nutritional consult on 10/04 and pt started Ensure (5) At risk for venous thromboembolism (VTE) Current Visit: No Status: Acute Base Code: Z91.89 - OTH PERSONAL RISK FACTORS, NOT ELSEWHERE CLASSIFIED Comment: 10/05/18: -Lovenox 40mg sc QD -Nursing to encourage ambulation. (6) Full code status Current Visit: No Status: Acute Base Code: Z78.9 - OTHER SPECIFIED HEALTH STATUS Comment: 10/05/18: -Pt. is a full code - Hospitalization Course Disposition: Home, Self-Care Hospital Course: Mr. Acevedo is a 68 year-old male who presented to the ED on 10/04/18 via EMS with c/o chest tightness with radiation to his left arm and shortness of breath. He stated that it felt like a panic attack. He is currently being evaluated for carotid blockages, and his dentist/owner did order a stress test that he has not completed yet. His history includes: COPD, ex-smoker, spontaneous pneumo, HTN, arthritis, and depression. In the ED, his vitals were: BP 202/103, HR 85, RR 26, T 97.8F, and 95% on room air. Nitroglycerine was administered and took his chest pain from a 2 to a 1. EKG was unchanged from previous. CBC, CMP, d-dimer, and troponins were unremarkable. Chest xray was negative for acute process. He was admitted for COPD exacerbation. Plan to monitor cardiac enzymes, tele, administer respiratory treatments. 10/04/18: Pt. is resting in bed. He just finished a duo neb treatment and he reports improved work of breathing. His oxygen is 96% on room air. He remains in NSR on tele. He states that he has lost almost 15 pounds within the last 30 days. He has been seen in [facility] and the ED several times since 01/2018 for COPD exacerbations, and he was admitted here from 05/10-05/14/18 for COPD and r/o chest pain. He was seen by Dr. Coleman at that time, stress test was recommended OP and is scheduled to be completed next week. He has been seen by pulmonology in the past, however, he does not recall how long ago or who he saw. Will continue to monitor troponins, lipid profile is pending. Ordered dietary consult- explained to pt that his increased work of breathing is likely burning more calories than he is consuming, he eats mostly vegan diet at home. 10/05/18: Pt. is resting in bed at this time. He reports continued improvement in SOB , still some wheezing, mostly RLL. Home oxygen qualifier completed and pt does not qualify, 93% on RA now. Case management set up pulmonary rehab/pulmonology f/u appt with [facility] for 10/10/18 at 11am. Will plan to initiate Daliresp 250mg at discharge and continue prednisone 40mg daily for 5 days. Discussed weight loss and nutritional modifications with pt, highly encouraged frequent high-calorie meals and incorporating Ensure shakes. PCP: Dr. Fry Funeral Location Manager: Dr. Hancock Procedures: Imaging and X-Rays 10/04/18 03:28 CXR [CHEST 2 VIEWS] [RAD] Stat Cardiology Procedures 10/04/18 02:55 Manager Financial Reporting NOW EKG NOW 10/04/18 04:12 EKG QDX2@0600 Abnormal Labs: Abnormal Lab Results 10/04/18 10/04/18 10/05/18 Range/Units 02:33 02:33 06:15 WBC 22.8 H* (4.2-12.2) K/uL RBC 4.22 L (4.40-5.70) M/uL Hgb 13.6 L (14.0-18.0) gm/dl Hct 40.7 L 38.7 L (42.0-52.0) % Neutrophils % 82.0 H (47-80) % Lymphocytes % 4.6 L (16-45) % Monocytes % 10.3 H (0-9) % Lymphocytes 9.0 L (16-45) % Sodium 132 L (136-145) mmol/L Chloride 96 L (98-107) mmol/L Creatinine 0.6 L (0.7-1.2) mg/dL Random Glucose (74-109) mg/dL NT-Pro-B Natriuret Pep 462.10 H (<125) pg/mL Total Protein (6.6-8.7) g/dL Albumin 3.9 L (4.0-5.0) g/dL 10/05/18 Range/Units 06:15 WBC (4.2-12.2) K/uL RBC (4.40-5.70) M/uL Hgb (14.0-18.0) gm/dl Hct (42.0-52.0) % Neutrophils % (47-80) % Lymphocytes % (16-45) % Monocytes % (0-9) % Lymphocytes (16-45) % Sodium 132 L (136-145) mmol/L Chloride 93 L (98-107) mmol/L Creatinine (0.7-1.2) mg/dL Random Glucose 162 H (74-109) mg/dL NT-Pro-B Natriuret Pep (<125) pg/mL Total Protein 5.8 L (6.6-8.7) g/dL Albumin 3.5 L (4.0-5.0) g/dL Condition at Discharge: (2) Stable Discharge Diagnosis: COPD Exacerbation VTE Discharge VTE Reason For No Overlap Therapy: Not Indicated Discharge Medications - Discharge Medications Prescriptions: Prednisone [Prednisone 20Mg] 20 mg PO BIDWM #10 tab Roflumilast [Daliresp] 250 mcg PO DAILY #30 tablet Home Medications: Ambulatory Orders Budesonide/Formoterol Fumarate [Symbicort 160-4.5 Mcg Inhaler] 2 inh IH BID [Last Taken 10/03/18] Trazodone HCl 100 mg PO QHS 05/11/14 [Last Taken 10/03/18] Albuterol Sulfate [Ventolin Hfa] 1 inh INH ASDIR 02/21/18 [Last Taken 10/03/18] Carvedilol [Coreg] 3.125 mg PO BID 09/21/18 [Last Taken 10/03/18] Atorvastatin Calcium 10 mg PO DAILY 10/04/18 [Last Taken 10/03/18] Baclofen 10 mg PO BID PRN 10/04/18 [Last Taken Unknown] Lisinopril 20 mg PO DAILY 10/04/18 [Last Taken Unknown] Lisinopril/Hydrochlorothiazide [Lisinopril-Hctz 20-25 mg Tab] 1 tab PO DAILY 07/13 [Last Taken Unknown] Prednisone [Prednisone 20Mg] 20 mg PO BIDWM #10 tab 10/05/18 [Last Taken Unknown ] Roflumilast [Daliresp] 250 mcg PO DAILY #30 tablet 10/05/18 [Last Taken Unknown] Discharge Plan - Discharge Instructions Activity at Discharge: Increase Activity as Tolerated Diet at Discharge: Regular Diet Additional Instructions: Follow up with your PCP, Dr. Fry, within 7-10 days Pulmonology appointment schedule for October 10 at 11:00am. Plan for them to set up pulmonary rehabilitation. Continue prednisone 20mg twice daily with meals Start Daliresp 250mg daily (will take 250mg for 4 weeks, then increase to 500mg daily). Make sure to eat frequent high-calorie meals, incorporate Ensure shakes, monitor your weight Return to the ED if symptoms worsen, or if you have any chest pain Quality Measures - Quality Measures Quality Measures: Advance Directives, Documentation of Current Medications in Medical Record, Elder Maltreatment Screen and Follow-Up Plan, Screening for High Blood Pressure and F/U Documented - Current Medications Quality Measure: Measure #130: Documentation of Current Medications Documentation of Current Medications: <Current Medications Documented/Reviewed> [G8427] - Blood Pressure Screening Quality Measure: Screening for High Blood Pressure and Follow-Up Documented Does Patient Have Any of the Following: Active Dx of HTN Blood Pressure Classification: Hypertensive Reading Systolic Measurement: 152 Diastolic Measurement: 72 Screening for High Blood Pressure: Patient Exclusion, Hx of HTN [G9744] - Advance Directives Quality Measure: Measure #47: Care Plan Advance Directives Established: No Advance Directives Information Provided To Patient: Yes Advance Directives on File: No Living Will: No Power of Glue Maker Bone: No Advance Care Planning: <Care Plan/Decision Maker Documented; Discussed & Documented> [1123F] - Elder Abuse Suspicion Index Screening: Elder Abuse Suspicion Index Screening Rely on people for bathing, dressing, shopping, banking, etc: No Prevented from getting food, clothes, medication, etc: No Made to feel shamed or threatened by someone: No Forced to sign papers or use money against will: No Feel afraid, touched in ways not wanted or hurt physically: No Poor eye contact, withdrawn, malnourished, cuts or bruises: No Screening Result: Negative result EASI Reference Information: Sharon SURESH, Naila C, Stan D, Roxi Montalvo.Development and validation of a tool to assist physicians identification of elder abuse: The Elder Abuse Suspicion Index (EASI ). Journal of Elder Abuse and Neglect, 2008; 20 (3): 276-300. - Elder Maltreatment Screen Quality Measures: Elder Maltreatment Screen and Follow-Up Plan Elder Maltreatment Screen: <Negative, No Follow-Up Plan Required> [O6493]
== END 2018-10-05 14:05 | disposition home or self-care (01) ==
LOC: ER 02:40 → MEDSURG 04:08
PROVIDERS: ADMIT Internal Medicine; ATTEND Internal Medicine
DX: J44.1 Chronic obstructive pulmonary disease with (acute) exacerbation (principal); R07.9 Chest pain, unspecified; I10 Essential (primary) hypertension; M19.90 Unspecified osteoarthritis, unspecified site; R63.4 Abnormal weight loss; I65.29 Occlusion and stenosis of unspecified carotid artery; F12.90 Cannabis use, unspecified, uncomplicated; Z87.891 Personal history of nicotine dependence
CPT/HCPCS: 82550; 85025; 82553; 80053 ×2; 80061; 84484; 85379; 85027; 83880; 71046; 94640 ×2; 94618; 94761 ×2; 93005 ×2; 93010; G0378 ×2; J7512; 96374; 99220; 99239; 99285; J1650; J2930; J7613

== ENCOUNTER 2018-11-09 02:31 | Observation (INO) | payer MEDICARE, SELFPAY ==
[2018-11-09] MEDS ORDERED: 0.9 % SODIUM CHLORIDE 1,000 ML BAG IV ONE (02:56)
[2018-11-09 02:59] LABS: BASO % 0.2 % (0-6); EOS % 3.1 % (0-6); HEMATOCRIT 38.8 % (42.0-52.0); HEMOGLOBIN 14.1 gm/dl (14.0-18.0); LYMPH % 19.6 % (16-45); MEAN CELL VOLUME 90.9 fl (81-97); MEAN CORPUSCULAR HGB CONC 36.3 g/dl (32-36); MEAN PLATELET VOLUME 9.7 fl (7.4-10.4); MONO % 10.1 % (0-9); PLATELET COUNT 213 K/uL (130-400); RED BLOOD COUNT 4.27 M/uL (4.40-5.70); WHITE BLOOD COUNT W/O DIFF 8.7 K/uL (4.2-12.2)
--- NOTE | 2018-11-09 03:02 | Emergency Department Record ---
History of Present Illness - General Chief Complaint: Dizziness Stated Complaint: LIGHTHEADED Time Seen by Provider: 11/09/18 02:45 Source: Patient Mode of Arrival: Ambulatory Limitations: No limitations - History of Present Illness Initial Comments: The patient is here due to the gradual onset of lightheadedness about 2 hours ago while sitting at home. He states he was sitting in the kitchen and then began to feel mildly weak and lightheaded. He then went into the bedroom and got into bed. The symptoms did not go away so he thought his BP may be low so he came to the ER. The patient states the lightheadness is now pretty much gone. He denied any CP, SOB, SYED, sweating, IRIZARRY, visual changes, or balance issues during the episode but he is having intermittent vague fluttering and discomfort at times in his chest. The patient also denies any recent illnesses, new medicines or any falls or trauma. He was able to walk with no weakness or numbness on one side of his body and with a steady gait. MD Complaint: Lightheadedness Onset/Timin -: Hour(s) Timing: Gradual onset Description: Lightheadedness Improves With: Nothing Worsens With: Nothing - Related Data Home Medications Medication Instructions Recorded Confirmed Last Taken Tiotropium [place] [Spiriva 1 inh IH DAILY 11/09/18 11/09/18 Unknown Respimat] Previous Rx's Medication Instructions Recorded Prednisone [Prednisone 20Mg] 20 mg PO BIDWM #10 tab 10/05/18 Allergies Allergy/AdvReac Type Severity Reaction Status Date / Time No Known Drug Allergies Allergy Verified 11/09/18 02:32 Travel Screening - Travel/Exposure Within Last 30 Days Have you traveled within the last 30 days?: No - Travel Symptoms Symptom Screening: None Review of Systems Constitutional: Denies: Chills, Fever Eyes: Denies: Eye discharge ENT: Denies: Congestion Respiratory: Reports: Dyspnea (Chronic.). Denies: Cough Cardiovascular: Denies: Arrhythmia, Chest pain Endocrine: Denies: Fatigue Gastrointestinal: Denies: Nausea, Vomiting Genitourinary: Denies: Dysuria Musculoskeletal: Denies: Arthralgia Skin: Denies: Bruising Neurological: Denies: Abnormal gait Past Medical History - SOCIAL HISTORY Smoking Status: Former smoker Alcohol Use: None - RESPIRATORY Hx Respiratory Disorders: Yes Hx COPD: Yes Hx Pneumonia: Yes (yearly) Comment:: spontaneous pneumo - CARDIOVASCULAR Hx Cardio Disorders: Yes Hx Hypertension: Yes - NEURO Hx Neuro Disorders: No - GI Hx GI Disorders: No - Hx Genitourinary Disorders: No - ENDOCRINE Hx Endocrine Disorders: No - MUSCULOSKELETAL Hx Musculoskeletal Disorders: Yes Hx Arthritis: Yes - PSYCH Hx Psych Problems: Yes Hx Depression: Yes - HEMATOLOGY/ONCOLOGY Hx Hematology/Oncology Disorders: No Family Medical History Any Significant Family History?: Yes Hx Anxiety: Brother/Sister Hx Depression: Brother/Sister Hx Diabetes: Brother/Sister Hx Heart Disease: Mother, Grandparents Hx Resp Disorders: Father Physical Exam - General General Appearance: Alert, Oriented x3, Cooperative, No acute distress - Head Head exam: Atraumatic, Normocephalic, Normal inspection - Eye Eye exam: Normal appearance, PERRL, EOMI - ENT Throat exam: Normal inspection. negative: Tonsillar erythema, Tonsillar exudate - Neck Neck exam: Normal inspection, Full ROM. negative: Tenderness - Respiratory Respiratory exam: Decreased breath sounds (Chronic due to COPD.). negative: Normal lung sounds bilaterally, Accessory muscle use, Prolonged expiratory, Respiratory distress, Rhonchi, Stridor, Wheezes - Cardiovascular Cardiovascular Exam: Regular rate, Normal rhythm, Normal heart sounds, Other ( decreased heart sounds.) - GI/Abdominal GI/Abdominal exam: Soft, Normal bowel sounds. negative: Tenderness - Extremities Extremities exam: Normal inspection, Full ROM, Normal capillary refill. negative: Tenderness - Neurological Neurological exam: Alert, CN II-XII intact, Normal gait, Oriented X3, Other ( Neg Drift and Rhomberg exams.). negative: Abnormal gait, Altered, Motor sensory deficit Course Vital Signs 11/09/18 02:33 Temperature 97.7 F Pulse Rate 80 Respiratory 16 Rate Blood Pressure 174/85 Pulse Ox 97 - Reevaluation(s) Reevaluation #1: The patient is resting comfortably at this time but continues to have a vague chest fluttering or discomfort feeling retrosternally which does not last long. Due to the fact he had a positive EST 3 weeks ago and is scheduled for a heart catheterization in 6 days I did recommend a short stay hospital admission and he did agree to the plan. We will admit the patient to Dr. German overnight for further monitoring and repeat cardiac enzymes. 11/09/18 03:27 Medical Decision Making - Data Complexity MDM Data: Labs Ordered and/or Reviewed, EKG Ordered and/or Reviewed - Lab Data Result diagrams: 11/09/18 02:56 11/09/18 02:56 - EKG Data -: EKG Interpreted by Me EKG: No Acute Changes, Unchanged From Previous Disposition Disposition: Admit Clinical Impression: Chest tightness Disposition: Still a Patient at [facility] Decision to Admit: Admit from ER Decision to Admit Date: 11/09/18 Decision to Admit Time: 03:29 Accepting Physician: Monserrat Muhammad Discussed w/Accepting Physician: 03:29 Condition: (2) Stable Forms: Patient Portal Access Time of Disposition: 03:29 Quality - Quality Measures Quality Measures: N/A - Blood Pressure Screening View Details: Yes Does Patient Have Any of the Following: No Blood Pressure Classification: Pre-Hypertensive BP Reading Systolic Measurement: 174 Diastolic Measurement: 85 Screening for High Blood Pressure: < Pre-Hypertensive BP, F/U Documented > [ G8950] Pre-Hypertensive Follow-up Interventions: Referral to alternative/primary care provider.
[2018-11-09 03:07] LABS: BLOOD UREA NITROGEN 15 mg/dL (8-23); CREATININE 0.6 mg/dL (0.7-1.2); EST GLOMERULAR FILTRATION RATE > 60 mL/min
[2018-11-09 03:09] LABS: GLUCOSE,RANDOM 105 mg/dL (74-109)
[2018-11-09 03:12] LABS: CREATINE PHOSPHOKINASE 56 U/L (39-308)
[2018-11-09 03:14] LABS: CKMB 3.4 ng/mL (<6.73)
[2018-11-09] MEDS ORDERED: ASPIRIN 325 MG TABLET PO ONE (03:25)
[2018-11-09] MEDS ORDERED: BACLOFEN 10 MG TABLET PO PRN (03:49)
[2018-11-09] MEDS ORDERED: ALBUTEROL HFA 8 GM INHALER INH SCH (03:49)
[2018-11-09] MEDS ORDERED: PREDNISONE 20 MG TAB PO SCH (08:00)
--- NOTE | 2018-11-09 09:10 | History & Physical ---
History of Present Illness - Date of Service Date of Service for History & Physical: 11/09/18 - History of Present Illness Admitting Diagnosis: 1. Chest Discomfort, R/O [place]. History of Present Illness: Mr. Acevedo is a 68 y/o male with coronary artery disease with recent positive stress test, hypertension and COPD who presented to the ED this morning with feeling lightheaded. He says he was sitting up watching some [employer] videos when he began to feel a little dizzy. He says he was able to get to his bed and lay down for a bit but then his symptoms did not resolve. He denies chest pain, headache, visual changes or shortness of breath. On arrival to the ED the patient's symptoms had resolved and he did not have any acute changes on ECG and troponins were negative. The patient is scheduled for left heart catheterization with Dr. Rogers on November 15. The patient is admitted for serial troponin draws and cardiac monitoring. At bedside rounds this morning the patient has no complaint of dizziness and his vitals are stable. Travel Screening - Travel/Exposure Within Last 30 Days Have you traveled within the last 30 days?: No - Travel/Exposure Within Last Year Have you traveled outside the [place] in the last year?: No - Additonal Travel Details Have you been exposed to anyone with a communicable illness?: No - Travel Symptoms Symptom Screening: None Review of Systems Constitutional: Denies: Chills, Fever Eyes: Denies: Eye discharge ENT: Denies: Congestion Respiratory: Reports: Dyspnea (Chronic.). Denies: Cough Cardiovascular: Denies: Arrhythmia, Chest pain Endocrine: Denies: Fatigue Gastrointestinal: Denies: Nausea, Vomiting Genitourinary: Denies: Dysuria Musculoskeletal: Denies: Arthralgia Skin: Denies: Bruising Neurological: Denies: Abnormal gait Past Medical History - SOCIAL HISTORY Smoking Status: Former smoker Alcohol Use: Occasional Drug Use: Heavy Drug Use Detail:: Marijuana - RESPIRATORY Hx Respiratory Disorders: Yes Hx COPD: Yes Hx Pneumonia: Yes (yearly) Comment:: spontaneous pneumo - CARDIOVASCULAR Hx Cardio Disorders: Yes Hx Hypertension: Yes - NEURO Hx Neuro Disorders: No - GI Hx GI Disorders: No - Hx Genitourinary Disorders: No - ENDOCRINE Hx Endocrine Disorders: No - MUSCULOSKELETAL Hx Musculoskeletal Disorders: Yes Hx Arthritis: Yes - PSYCH Hx Psych Problems: Yes Hx Depression: Yes - HEMATOLOGY/ONCOLOGY Hx Hematology/Oncology Disorders: No Family Medical History Any Significant Family History?: Yes Hx Anxiety: Brother/Sister Hx Depression: Brother/Sister Hx Diabetes: Brother/Sister Hx Heart Disease: Mother, Grandparents Hx Resp Disorders: Father H&P Meds/Allergies - Allergies Allergies: Allergies Allergy/AdvReac Type Severity Reaction Status Date / Time No Known Drug Allergies Allergy Verified 11/09/18 02:32 - Home Medications Home Medications Medication Instructions Recorded Confirmed Last Taken Tiotropium [place] [Spiriva 1 inh IH DAILY 11/09/18 11/09/18 Unknown Respimat] Previous Rx's Medication Instructions Recorded Prednisone [Prednisone 20Mg] 20 mg PO BIDWM #10 tab 10/05/18 - Active Medications Active Medications: Current Medications Albuterol Sulfate (Ventolin Hfa) puff INH ASDIR FEMI Albuterol/Ipratropium (Duoneb) 3 ml INH QID FEMI Aspirin (Ecotrin (Ec)) 325 mg PO DAILY [facility] Baclofen (Lioresal) 10 mg PO BID PRN PRN Reason: SPASMS Carvedilol (Coreg) 3.125 mg PO BID [facility] Hydrochlorothiazide (Hctz 25mg) 25 mg PO DAILY [facility] Lisinopril (Zestril) 40 mg PO DAILY [facility] Non-Formulary Medication (Budesonide/Formoterol Fumarate [Symbicort 160-4.5 Mcg Inhaler]) 2 inh IH BID [facility] Non-Formulary Medication (Tiotropium [place] [Spiriva Respimat]) 1 inh IH DAILY [facility] Prednisone (Prednisone 20mg) 20 mg PO BIDWM [facility] Last Admin: 11/09/18 07:51 Dose: 20 mg Simvastatin (Zocor) 20 mg PO QHS [facility] Trazodone HCl (Desyrel) 100 mg PO QHS [facility] Physical Exam - Vital Signs Vital Signs: Vital Signs - Last 24 Hrs Temp Pulse Pulse Pulse Resp BP BP 11/09/18 08:01 84 20 11/09/18 06:00 98.1 F 78 17 107/61 11/09/18 04:34 72 95 H 16 11/09/18 03:49 97.3 F L 78 16 162/83 11/09/18 03:45 74 24 178/86 11/09/18 03:06 66 16 157/72 11/09/18 02:33 97.7 F 80 16 174/85 Pulse Ox 11/09/18 08:01 11/09/18 06:00 100 11/09/18 04:34 11/09/18 03:49 95 11/09/18 03:45 11/09/18 03:06 93 L 11/09/18 02:33 97 - General General Appearance: Alert, Oriented x3, Cooperative, No acute distress Limitations: No limitations - Head Head exam: Atraumatic, Normocephalic, Normal inspection - Eye Eye exam: Normal appearance, PERRL, EOMI - ENT Throat exam: Normal inspection. negative: Tonsillar erythema, Tonsillar exudate - Neck Neck exam: Normal inspection, Full ROM. negative: Tenderness - Respiratory Respiratory exam: Decreased breath sounds (Chronic due to COPD.), Wheezes. negative: Normal lung sounds bilaterally, Accessory muscle use, Prolonged expiratory, Respiratory distress, Rhonchi, Stridor - Cardiovascular Cardiovascular Exam: Regular rate, Normal rhythm, Normal heart sounds, Other ( decreased heart sounds.) Peripheral Pulses: 3+: Radial (R), Radial (L), Dorsalis Pedis (R), Dorsalis Pedis (L) - GI/Abdominal GI/Abdominal exam: Soft, Normal bowel sounds. negative: Tenderness - Extremities Extremities exam: Normal inspection, Full ROM, Normal capillary refill. negative: Tenderness - Neurological Neurological exam: Alert, CN II-XII intact, Normal gait, Oriented X3, Other ( Neg Drift and Rhomberg exams.). negative: Abnormal gait, Altered, Motor sensory deficit Results - Labs Result Diagrams: 11/09/18 02:56 11/09/18 02:56 Labs Last 24 Hours: Laboratory Results - last 24 hr 11/09/18 11/09/18 11/09/18 02:56 02:56 07:10 WBC 8.7 RBC 4.27 L Hgb 14.1 Hct 38.8 L MCV 90.9 MCH 33.0 MCHC 36.3 H RDW 13.0 Plt Count 213 MPV 9.7 Gran % 67.0 Lymphocytes % 19.6 Monocytes % 10.1 H Eosinophils % 3.1 Basophils % 0.2 Sodium 130 L Potassium 4.0 Chloride 92 L Carbon Dioxide 25.0 Anion Gap 13.0 BUN 15 Creatinine 0.6 L Estimated GFR > 60 Random Glucose 105 Calcium 9.1 Creatine Kinase 56 CK-MB (CK-2) 3.4 Troponin T < 0.010 < 0.010 VTE H&P Assessment - Risk for VTE Risk for VTE: Yes Risk Level: Moderate Risk Assessment Date: 11/09/18 Risk Assessment Time: 09:25 VTE Orders Placed or Will Be Placed: Yes Plan - Detailed Diagnosis and Plan (1) Dizziness Current Visit: Yes Status: Acute Base Code: R42 - DIZZINESS AND GIDDINESS Comment: 11/09/18: - resolved. - no neurological deficits, no acute cardiac concerns, no elecetrolyte disturbance. (2) CAD (coronary artery disease) Current Visit: Yes Status: Acute Base Code: I25.10 - ATHSCL HEART DISEASE OF [place] CORONARY ARTERY W/O ANG PCTRS Comment: 11/09/18: - EKG: no acute ST-T changes, NSR - Troponins x 1 negative, serial lab pending. - Recent positive stress test. obstructive v non-obstructive - LHC scheduled Nov [address] Rogers w/ [facility]. - Resume Lisinopril, BB, ASA, Statin therapy. (3) COPD (chronic obstructive pulmonary disease) Current Visit: No Status: Acute Base Code: J44.9 - CHRONIC OBSTRUCTIVE PULMONARY DISEASE, UNSPECIFIED Comment: 11/09/18: - Duonebs QID FEMI, Spiriva QD - D/C PO Prednisone (4) HTN (hypertension) Current Visit: No Status: Acute Base Code: I10 - ESSENTIAL (PRIMARY) HYPERTENSION Comment: 11/09/18: - Resume lisinopril 40mg daily and coreg 3.125mg bid, hctz 25mg daily (5) At risk for venous thromboembolism (VTE) Current Visit: No Status: Acute Base Code: Z91.89 - OTH PERSONAL RISK FACTORS, NOT ELSEWHERE CLASSIFIED Comment: 11/13/18: -Nursing to encourage ambulation. (6) Full code status Current Visit: No Status: Acute Base Code: Z78.9 - OTHER SPECIFIED HEALTH STATUS Comment: 11/09/18: - Full code
[2018-11-09] MEDS: IPRATROPIUM/ALBUTEROL (0.5MG/3MG) NEB INH SCH ×2 (09:57→14:04)
[2018-11-09] MEDS ORDERED: [UNRECOGNIZED DRUG - OTHER] IH SCH (10:00)
[2018-11-09] MEDS ORDERED: BUDESONIDE IH SCH (10:00)
[2018-11-09] MEDS ORDERED: HYDROCHLOROTHIAZIDE 25 MG TABLET PO SCH (10:00)
[2018-11-09] MEDS ORDERED: TIOTROPIUM BROMIDE IH SCH (10:00)
[2018-11-09] MEDS ORDERED: FORMOTEROL FUMARATE IH SCH (10:00)
[2018-11-09] MEDS ORDERED: ATORVASTATIN 20 MG TABLET PO SCH (10:00)
[2018-11-09] MEDS ORDERED: LISINOPRIL 20 MG TABLET PO SCH ×3 (10:00)
[2018-11-09] MEDS ORDERED: CARVEDILOL 3.125 MG TABLET PO SCH (10:00)
--- NOTE | 2018-11-09 16:27 | Discharge Summary ---
Providers Discharge Summary Date: 11/11/18 Date of admission: 11/09/18 03:42 Attending physician: RAHUL ROWELL Physical Exam - Vital Signs Vital Signs: Vital Signs - Last 24 Hrs Temp Pulse Pulse Pulse Resp BP BP 11/09/18 15:30 99 F 155/67 11/09/18 14:06 85 18 11/09/18 14:00 99 F 80 20 155/67 11/09/18 10:04 83 18 11/09/18 10:00 97.5 F L 76 16 128/74 11/09/18 08:01 84 20 11/09/18 06:00 98.1 F 78 17 107/61 11/09/18 04:34 72 95 H 16 11/09/18 03:49 97.3 F L 78 16 162/83 11/09/18 03:45 74 24 178/86 11/09/18 03:06 66 16 157/72 11/09/18 02:33 97.7 F 80 16 174/85 Pulse Ox 11/09/18 15:30 11/09/18 14:06 98 11/09/18 14:00 11/09/18 10:04 93 L 11/09/18 10:00 96 11/09/18 08:01 11/09/18 06:00 100 11/09/18 04:34 11/09/18 03:49 95 11/09/18 03:45 11/09/18 03:06 93 L 11/09/18 02:33 97 - General General Appearance: Alert, Oriented x3, Cooperative, No acute distress Limitations: No limitations - Head Head exam: Atraumatic, Normocephalic, Normal inspection - Eye Eye exam: Normal appearance, PERRL, EOMI - ENT Throat exam: Normal inspection. negative: Tonsillar erythema, Tonsillar exudate - Neck Neck exam: Normal inspection, Full ROM. negative: Tenderness - Respiratory Respiratory exam: Decreased breath sounds (Chronic due to COPD.), Wheezes. negative: Normal lung sounds bilaterally, Accessory muscle use, Prolonged expiratory, Respiratory distress, Rhonchi, Stridor - Cardiovascular Cardiovascular Exam: Regular rate, Normal rhythm, Normal heart sounds, Other ( decreased heart sounds.) Peripheral Pulses: 3+: Radial (R), Radial (L), Dorsalis Pedis (R), Dorsalis Pedis (L) - GI/Abdominal GI/Abdominal exam: Soft, Normal bowel sounds. negative: Tenderness - Extremities Extremities exam: Normal inspection, Full ROM, Normal capillary refill. negative: Tenderness - Neurological Neurological exam: Alert, CN II-XII intact, Normal gait, Oriented X3, Other ( Neg Drift and Rhomberg exams.). negative: Abnormal gait, Altered, Motor sensory deficit Hospitalization - Hospitalization Admission Diagnosis: 1. Chest Discomfort, R/O [place]. - Problem List/Discharge Diagnosis (1) Dizziness Status: Acute Base Code: R42 - DIZZINESS AND GIDDINESS Comment: 11/09/18: - resolved. - no neurological deficits, no acute cardiac concerns, no elecetrolyte disturbance. (2) CAD (coronary artery disease) Status: Acute Base Code: I25.10 - ATHSCL HEART DISEASE OF [place] CORONARY ARTERY W/O ANG PCTRS Comment: 11/09/18: - EKG: no acute ST-T changes, NSR - Troponins x 1 negative, serial lab pending. - Recent positive stress test. obstructive v non-obstructive - LHC scheduled Nov [address] Rogers w/ [facility]. - Resume Lisinopril, BB, ASA, Statin therapy. (3) COPD (chronic obstructive pulmonary disease) Status: Acute Base Code: J44.9 - CHRONIC OBSTRUCTIVE PULMONARY DISEASE, UNSPECIFIED Comment: 11/09/18: - Duonebs QID FEMI, Spiriva QD - D/C PO Prednisone (4) HTN (hypertension) Status: Acute Base Code: I10 - ESSENTIAL (PRIMARY) HYPERTENSION Comment: 11/09/18: - Resume lisinopril 40mg daily and coreg 3.125mg bid, hctz 25mg daily (5) At risk for venous thromboembolism (VTE) Status: Acute Base Code: Z91.89 - OTH PERSONAL RISK FACTORS, NOT ELSEWHERE CLASSIFIED Comment: 11/13/18: -Nursing to encourage ambulation. (6) Full code status Status: Acute Base Code: Z78.9 - OTHER SPECIFIED HEALTH STATUS Comment: 11/09/18: - Full code - Hospitalization Course Disposition: Home, Self-Care Hospital Course: Mr. Acevedo is a 68 y/o male with coronary artery disease with recent positive stress test, hypertension and COPD who presented to the ED this morning with feeling lightheaded. He says he was sitting up watching some youtube videos when he began to feel a little dizzy. He says he was able to get to his bed and lay down for a bit but then his symptoms did not resolve. He denies chest pain, headache, visual changes or shortness of breath. On arrival to the ED the patient's symptoms had resolved and he did not have any acute changes on ECG and troponins were negative. The patient is scheduled for left heart catheterization with Dr. Rogers on November 15. The patient is admitted for serial troponin draws and cardiac monitoring. At bedside rounds this morning the patient has no complaint of dizziness and his vitals are stable. Re-assessment 11/09/18 3:00pm: The patient's troponins remained negative when trended and he had not further complaint of dizziness and no chest pain or shortness of breath. Procedures: Cardiology Procedures 11/09/18 02:43 EKG ONCE 11/09/18 02:56 Food Safety Field Specialist NOW 11/09/18 03:49 Food Safety Field Specialist .Continuous EKG QDX2@0600 Abnormal Labs: Abnormal Lab Results 11/09/18 11/09/18 Range/Units 02:56 02:56 RBC 4.27 L (4.40-5.70) M/uL Hct 38.8 L (42.0-52.0) % MCHC 36.3 H (32-36) g/dl Monocytes % 10.1 H (0-9) % Sodium 130 L (136-145) mmol/L Chloride 92 L (98-107) mmol/L Creatinine 0.6 L (0.7-1.2) mg/dL Condition at Discharge: (2) Stable Discharge Medications - Discharge Medications Home Medications: Ambulatory Orders Budesonide/Formoterol Fumarate [Symbicort 160-4.5 Mcg Inhaler] 2 inh IH BID [Last Taken 10/03/18] Trazodone HCl 100 mg PO QHS 05/11/14 [Last Taken 10/03/18] Albuterol Sulfate [Ventolin Hfa] 1 inh INH ASDIR 02/21/18 [Last Taken 10/03/18] Carvedilol [Coreg] 3.125 mg PO BID 09/21/18 [Last Taken 10/03/18] Atorvastatin Calcium 10 mg PO DAILY 10/04/18 [Last Taken 10/03/18] Baclofen 10 mg PO BID PRN 10/04/18 [Last Taken Unknown] Lisinopril 20 mg PO DAILY 10/04/18 [Last Taken Unknown] Lisinopril/Hydrochlorothiazide [Lisinopril-Hctz 20-25 mg Tab] 1 tab PO DAILY 07/13 [Last Taken Unknown] Prednisone [Prednisone 20Mg] 20 mg PO BIDWM #10 tab 10/05/18 [Last Taken Unknown ] Tiotropium [place] [Spiriva Respimat] 1 inh IH DAILY 11/09/18 [Last Taken Unknown] Discharge Plan - Discharge Instructions Activity at Discharge: Resume Usual Activities As Tolerated Diet at Discharge: Regular Diet Instructions: Chest Pain (DC) Additional Instructions: Follow up with PCP within 3-5 days and Cardiology as planned for Cardiac cath on Nov 15. If you experience chest pain, or similar symptoms to what you had last night please go to the nearest ED. Resume home meds Diet and activity as tolerated Quality Measures - Quality Measures Quality Measures: Advance Directives, Coronary Artery Disease: Antiplatelet Therapy, Documentation of Current Medications in Medical Record, Elder Maltreatment Screen and Follow-Up Plan, Screening for High Blood Pressure and F/ U Documented - Current Medications Quality Measure: Measure #130: Documentation of Current Medications Documentation of Current Medications: <Current Medications Documented/Reviewed> [G6165] - Blood Pressure Screening Quality Measure: Screening for High Blood Pressure and Follow-Up Documented Does Patient Have Any of the Following: Active Dx of HTN Blood Pressure Classification: Hypertensive Reading Systolic Measurement: 155 Diastolic Measurement: 67 Screening for High Blood Pressure: Patient Exclusion, Hx of HTN [G9744] - Coronary Artery Disease Quality Measure: Measure #6: Coronary Artery Disease (CAD) Antiplatelet Therapy: <ASA or clopidogrel prescribed> [1631F] - Advance Directives Quality Measure: Measure #47: Care Plan Advance Directives Established: No Advance Directives Information Provided To Patient: Yes Advance Directives on File: No Living Will: No Power of Computer Analyst Supervisor: No Advance Care Planning: <Care Plan/Decision Maker Not Decided; Discussed & Documented> [2606F] - Elder Abuse Suspicion Index Screening: Elder Abuse Suspicion Index Screening Rely on people for bathing, dressing, shopping, banking, etc: No Prevented from getting food, clothes, medication, etc: No Made to feel shamed or threatened by someone: No Forced to sign papers or use money against will: No Feel afraid, touched in ways not wanted or hurt physically: No Poor eye contact, withdrawn, malnourished, cuts or bruises: No Screening Result: Negative result EASI Reference Information: Sharon SURESH, Naila Gonsalez, Stan Damon, Roxi Montalvo.Development and validation of a tool to assist physicians identification of elder abuse: The Elder Abuse Suspicion Index (EASI ). Journal of Elder Abuse and Neglect, 2008; 20 (3): 276-300. - Elder Maltreatment Screen Quality Measures: Elder Maltreatment Screen and Follow-Up Plan Elder Maltreatment Screen: <Negative, No Follow-Up Plan Required> [G8734]
[2018-11-09] MEDS ORDERED: TRAZODONE 50 MG TABLET PO SCH (22:00)
[2018-11-10] MEDS ORDERED: ASPIRIN 325 MG TAB ENTERIC-COATED PO SCH (10:00)
== END 2018-11-09 17:00 | disposition home or self-care (01) ==
LOC: ER 02:31 → MEDSURG 03:42
PROVIDERS: ADMIT Internal Medicine; ATTEND Internal Medicine
DX: I25.10 Atherosclerotic heart disease of native coronary artery without angina pectoris (principal); J44.9 Chronic obstructive pulmonary disease, unspecified; I10 Essential (primary) hypertension; R06.09 Other forms of dyspnea; F12.90 Cannabis use, unspecified, uncomplicated; Z87.891 Personal history of nicotine dependence
CPT/HCPCS: 82550; 85025; 82553; 80048; 84484; 94640 ×2; 93005; 93010; 94760; G0378; J7512; 99236; 99285; J7030

== ENCOUNTER 2018-12-12 23:11 | Emergency (ER) | payer MEDICARE, SELFPAY ==
[2018-12-12] MEDS ORDERED: ONDANSETRON HCL IV 4 MG/2 ML VIAL IVP ONE (23:14)
[2018-12-12] MEDS ORDERED: MORPHINE SULFATE 10 MG/ML VIAL IVP ONE (23:14)
[2018-12-12] MEDS ORDERED: 0.9 % SODIUM CHLORIDE 1000ML 1,000 ML IV SCH (23:15)
--- NOTE | 2018-12-12 23:26 | Emergency Department Record ---
History of Present Illness - General Chief Complaint: Fall Injury Stated Complaint: FALL Time Seen by Provider: 12/12/18 23:14 Source: Patient Mode of Arrival: Ambulatory Limitations: No limitations - History of Present Illness Initial Comments: 68 yo male presents to ED for evaluation following a fall with pain to the right chest wall. Patient reports that he became tangled up in a dog leash resulting in a trip and fall with pain to the right posterior ribs. Patient denies injury to the head or neck, does report previous lobectomy >20 years ago for a bleb. Patient also reports that he takes Plavis, denies injury to the head or neck on examination. MD Complaint: Fall Onset/Timin -: Minutes(s) Fall From: Standing When Fall Occurred: Just prior to arrival Fall Witnessed: No Place Fall Occurred: Home Loss of Consciousness: None Prolonged Down Time?: Minute(s) Symptoms Prior to Fall: None Location: Chest, Back, Other Severity: Moderate Severity scale (1-10): 6 Context: Tripped/slipped Associated Symptoms: Shortness of breath, Other - [place] Coma Scale Eye Response: (4) Open spontaneously Motor Response: (6) Obeys commands Verbal Response: (5) Oriented [place] Total: 15 - Related Data Home Medications Medication Instructions Recorded Confirmed Last Taken Clopidogrel Bisulfate [Clopidogrel] 75 mg PO DAILY 12/12/18 12/12/18 Unknown Allergies Allergy/AdvReac Type Severity Reaction Status Date / Time No Known Drug Allergies Allergy Verified 11/09/18 02:32 Travel Screening - Travel/Exposure Within Last 30 Days Have you traveled within the last 30 days?: No - Travel Symptoms Symptom Screening: None Review of Systems Constitutional: Denies: Chills, Fever, Malaise, Night sweats Eyes: Denies: Eye discharge, Eye pain ENT: Denies: Congestion, Ear pain, Epistaxis Respiratory: Reports: Dyspnea. Denies: Cough Cardiovascular: Reports: Chest pain. Denies: Dyspnea on exertion, Edema, Orthopnea, Palpitations Endocrine: Denies: Fatigue, Heat or cold intolerance Gastrointestinal: Denies: Abdominal pain, Nausea, Vomiting Genitourinary: Denies: Incontinence, Retention Musculoskeletal: Reports: Back pain (Right posterior rib pain). Denies: Arthralgia, Gout, Joint swelling Skin: Reports: Bruising. Denies: Change in color, Change in hair/nails Neurological: Denies: Abnormal gait, Confusion, Headache, Seizure Psychiatric: Denies: Anxiety Hematological/Lymphatic: Denies: Anemia, Blood Clots Past Medical History - SOCIAL HISTORY Smoking Status: Former smoker - RESPIRATORY Hx Respiratory Disorders: Yes Hx COPD: Yes Hx Pneumonia: Yes (yearly) Comment:: spontaneous pneumo - CARDIOVASCULAR Hx Cardio Disorders: Yes Hx Hypertension: Yes - NEURO Hx Neuro Disorders: No - GI Hx GI Disorders: No - Hx Genitourinary Disorders: No - ENDOCRINE Hx Endocrine Disorders: No - MUSCULOSKELETAL Hx Musculoskeletal Disorders: Yes Hx Arthritis: Yes - PSYCH Hx Psych Problems: Yes Hx Depression: Yes - HEMATOLOGY/ONCOLOGY Hx Hematology/Oncology Disorders: No Family Medical History Hx Anxiety: Brother/Sister Hx Depression: Brother/Sister Hx Diabetes: Brother/Sister Hx Heart Disease: Mother, Grandparents Hx Resp Disorders: Father Physical Exam - General General Appearance: Alert, Oriented x3, Cooperative, Moderate distress Limitations: No limitations - Head Head exam: Atraumatic, Normocephalic, Normal inspection Head exam detail: negative: Abrasion, Contusion, Fan's sign, General tenderness, Hematoma, Laceration - Eye Eye exam: Normal appearance. negative: Conjunctival injection, Periorbital swelling, Periorbital tenderness, Scleral icterus - ENT Ear exam: negative: Auricular hematoma, Auricular trauma Nasal Exam: negative: Active bleeding, Discharge, Dried blood, Foreign body Mouth exam: negative: Drooling, Laceration, Muffled voice, Tongue elevation - Neck Neck exam: Normal inspection. negative: Meningismus, Tenderness - Respiratory Respiratory exam: Normal lung sounds bilaterally, Chest wall tenderness ( Posterior right ribs on examination with STS present.). negative: Rales, Respiratory distress, Rhonchi, Stridor - Cardiovascular Cardiovascular Exam: Regular rate, Normal rhythm, Normal heart sounds - GI/Abdominal GI/Abdominal exam: Soft. negative: Rebound, Rigid, Tenderness - Rectal Rectal exam: Deferred - exam: Deferred - Extremities Extremities exam: Other (Area of hematoma to the dorsal aspect of the right hand , FROm without pain.). negative: Pedal edema, Tenderness - Back Back exam: Reports: CVA tenderness (R). Denies: CVA tenderness (L) - Neurological Neurological exam: Alert, Normal gait, Oriented X3 - Psychiatric Psychiatric exam: Normal affect, Normal mood - Skin Skin exam: Normal color. negative: Abrasion Type of lesion: negative: abrasion Course Vital Signs 12/12/18 23:13 Temperature 97.9 F Pulse Rate 84 Respiratory 24 Rate Blood Pressure 138/76 Pulse Ox 97 - Reevaluation(s) Reevaluation #1: 12/13/18 00:01 Laboratory studies were reviewed and are grossly unremarkable for an acute process except for: WBC 12.7 Reevaluation #2: 12/13/18 00:09 Patient is back from CT, pain improved. Preliminary review of the CT Chest demonstrates (2) posterior broken ribs with small hemothorax, no pneumothorax noted. Will initiate transfer to [facility] per patient's decision. Reevaluation #3: 12/13/18 00:21 Discussed patient's findings with the radiologist: CT Chest w/o contrast Fractured ribs #10, 11, 12 Trace hemo-pneumothorax Dr. Young paged at [facility] for Trauma consultation. Reevaluation #4: 12/13/18 00:44 Case was discussed with Dr. Seals (ED) and Dr. Schwartz (Trauma), will accept admission at this time. Medical Decision Making - Lab Data Result diagrams: 12/12/18 23:30 12/12/18 23:30 Critical Care Time Critical Care Time: Yes Total Critical Care Time: 45 Critical Care Time: Trauma evaluation, laboratory results review, independent review of the patient' s CT imaging, frequent reassessments, updating of the patient and family, and facilitation of transport to for Trauma evaluation. Disposition Disposition: Transfer Clinical Impression: Hemopneumothorax on right Fall Qualifiers: Encounter type: initial encounter Qualified Code(s): W19.XXXA - Unspecified fall, initial encounter Rib fractures Qualifiers: Encounter type: initial encounter Rib fracture type: multiple ribs Fracture type: closed Laterality: right Qualified Code(s): S22.41XA - Multiple fractures of ribs, right side, initial encounter for closed fracture Disposition: Acute Care Hospital Transfer Transfer To: [facility] Reason For Transfer: Trauma, hemo-pneumothorax Accepting Physician: [facility] Time Discussed w/Accepting Physician: 00:26 Forms: Patient Portal Access Time of Disposition: 00:26 Quality - Quality Measures Quality Measures: N/A - Blood Pressure Screening Does Patient Have Any of the Following: No Blood Pressure Classification: Pre-Hypertensive BP Reading Systolic Measurement: 138 Diastolic Measurement: 76 Screening for High Blood Pressure: < Pre-Hypertensive BP, F/U Documented > [ G8950] Pre-Hypertensive Follow-up Interventions: Referral to alternative/primary care provider.
[2018-12-12 23:39] LABS: BASO % 0.2 % (0-6); EOS % 2.2 % (0-6); GRAN % 74.8 % (47-80); HEMATOCRIT 35.5 % (42.0-52.0); HEMOGLOBIN 12.7 gm/dl (14.0-18.0); LYMPH % 15.9 % (16-45); MEAN CELL VOLUME 92.2 fl (81-97); MEAN CORPUSCULAR HGB CONC 35.8 g/dl (32-36); MEAN PLATELET VOLUME 9.3 fl (7.4-10.4); MONO % 6.9 % (0-9); PLATELET COUNT 233 K/uL (130-400); RED BLOOD COUNT 3.85 M/uL (4.40-5.70); WHITE BLOOD COUNT W/O DIFF 12.7 K/uL (4.2-12.2)
[2018-12-12 23:51] LABS: BLOOD UREA NITROGEN 11 mg/dL (8-23); MEAN CORPUSCULAR HEMOGLOBIN 32.9 pg (27-33)
[2018-12-12 23:52] LABS: CREATININE 0.7 mg/dL (0.7-1.2); EST GLOMERULAR FILTRATION RATE > 60 mL/min; TOTAL PROTEIN 6.4 g/dL (6.6-8.7)
[2018-12-12 23:54] LABS: GLUCOSE,RANDOM 125 mg/dL (74-109)
[2018-12-12 23:57] LABS: ALB/GLOB RATIO 1.8 (1.1-1.8); ALBUMIN 4.1 g/dL (4.0-5.0); ALKALINE PHOSPHATASE 56 U/L (40-129); ALT/SGPT 17 U/L (<41); AST/SGOT 16 U/L (10.0-50.0)
== END 2018-12-13 00:55 | disposition short-term general hospital (02) ==
LOC: ER 23:11
DX: S27.2XXA Traumatic hemopneumothorax, initial encounter (principal); S22.41XA Multiple fractures of ribs, right side, initial encounter for closed fracture; S60.221A Contusion of right hand, initial encounter; R06.02 Shortness of breath; W01.0XXA Fall on same level from slipping, tripping and stumbling without subsequent striking against object, initial encounter; Y93.K9 Activity, other involving animal care; Y92.007 Garden or yard of unspecified non-institutional (private) residence as the place of occurrence of the external cause; I10 Essential (primary) hypertension; J44.9 Chronic obstructive pulmonary disease, unspecified; Z87.891 Personal history of nicotine dependence; Z79.02 Long term (current) use of antithrombotics/antiplatelets
CPT/HCPCS: 71250; 80053; 85025; 96374; 96375; 99291; J2270; J2405; J7030

== ENCOUNTER 2018-12-24 19:45 | Observation (INO) | payer MEDICARE, SELFPAY ==
[2018-12-24] MEDS ORDERED: METHYLPREDNISOLONE PF 125MG/VIAL IVP ONE (19:49)
[2018-12-24] MEDS ORDERED: IPRATROPIUM/ALBUTEROL (0.5MG/3MG) NEB INH ONE (19:49)
--- NOTE | 2018-12-24 19:55 | Emergency Department Record ---
History of Present Illness - General Chief Complaint: Shortness of breath Stated Complaint: SYED,DIZZY Time Seen by Provider: 12/24/18 19:48 Source: Patient Mode of Arrival: Wheelchair Limitations: No limitations - History of Present Illness Initial Comments: 68 yo male with previous history of COPD and recent fall resulting in (3) posterior rib fractures and small hemo-pneumothorax presents to ED for evaluation of difficulty in breathing that began earlier today. Patient reports using his Albuterol at home x 4, reports that he is unable to catch his breath. Patient denies fevers, chills, or recent pneumonia. MD Complaint: Shortness of breath Onset/Timin -: Days(s) Severity: Severe Consistency: Constant Improves With: Nothing Worsens With: Nothing Known History Of: COPD Associated Symptoms: Denies other symptoms Treatments Prior to Arrival: Bronchodilator - Related Data Home Oxygen Therapy: No Home Medications Medication Instructions Recorded Confirmed Last Taken Hydrocodone/Acetaminophen 5 mg PO TID PRN 12/24/18 12/24/18 12/24/18 [Hydrocodone/Acetaminophen 5mg/325mg] Allergies Allergy/AdvReac Type Severity Reaction Status Date / Time No Known Drug Allergies Allergy Verified 11/09/18 02:32 Review of Systems Constitutional: Denies: Chills, Fever, Malaise, Night sweats Eyes: Denies: Eye discharge, Eye pain ENT: Denies: Congestion, Ear pain, Epistaxis Respiratory: Reports: Dyspnea, Wheezes. Denies: Cough, Stridor Cardiovascular: Reports: Dyspnea on exertion. Denies: Chest pain, Edema Endocrine: Denies: Fatigue, Heat or cold intolerance Gastrointestinal: Denies: Abdominal pain, Nausea, Vomiting Genitourinary: Denies: Incontinence, Retention Musculoskeletal: Denies: Arthralgia, Back pain Skin: Denies: Bruising, Change in color Neurological: Denies: Abnormal gait, Confusion, Headache, Seizure Psychiatric: Denies: Anxiety Hematological/Lymphatic: Denies: Anemia, Blood Clots Past Medical History - SOCIAL HISTORY Smoking Status: Former smoker - RESPIRATORY Hx Respiratory Disorders: Yes Hx COPD: Yes Hx Pneumonia: Yes (yearly) Comment:: spontaneous pneumo - CARDIOVASCULAR Hx Cardio Disorders: Yes Hx Hypertension: Yes - NEURO Hx Neuro Disorders: No - GI Hx GI Disorders: No - Hx Genitourinary Disorders: No - ENDOCRINE Hx Endocrine Disorders: No - MUSCULOSKELETAL Hx Musculoskeletal Disorders: Yes Hx Arthritis: Yes - PSYCH Hx Psych Problems: Yes Hx Depression: Yes - HEMATOLOGY/ONCOLOGY Hx Hematology/Oncology Disorders: No Family Medical History Hx Anxiety: Brother/Sister Hx Depression: Brother/Sister Hx Diabetes: Brother/Sister Hx Heart Disease: Mother, Grandparents Hx Resp Disorders: Father Physical Exam - General General Appearance: Alert, Oriented x3, Cooperative, Severe distress, Other ( Tripod positioning, decreased air movement bilaterally) Limitations: No limitations - Head Head exam: Atraumatic, Normocephalic, Normal inspection Head exam detail: negative: Abrasion, Contusion, Fan's sign, General tenderness, Hematoma, Laceration - Eye Eye exam: Normal appearance. negative: Conjunctival injection, Periorbital swelling, Periorbital tenderness, Scleral icterus - ENT Ear exam: negative: Auricular hematoma, Auricular trauma Nasal Exam: negative: Active bleeding, Discharge, Dried blood, Foreign body Mouth exam: negative: Drooling, Laceration, Muffled voice, Tongue elevation - Neck Neck exam: Normal inspection. negative: Meningismus, Tenderness - Respiratory Respiratory exam: Decreased breath sounds, Respiratory distress. negative: Rales, Rhonchi, Stridor - Cardiovascular Cardiovascular Exam: Normal rhythm, Normal heart sounds, Tachycardia - GI/Abdominal GI/Abdominal exam: Soft. negative: Rebound, Rigid, Tenderness - Rectal Rectal exam: Deferred - exam: Deferred - Extremities Extremities exam: Normal inspection. negative: Pedal edema, Tenderness - Back Back exam: Denies: CVA tenderness (R), CVA tenderness (L) - Neurological Neurological exam: Alert, Normal gait, Oriented X3 - Psychiatric Psychiatric exam: Normal affect, Normal mood - Skin Skin exam: Normal color. negative: Abrasion Type of lesion: negative: abrasion Course - Reevaluation(s) Reevaluation #1: 12/24/18 19:54 Patient was seen and examined, significant respiratory distress noted on examination. Bipap ordered to be placed, portable CXR ordered, and EKG ordered. Duoneb and solumedrol ordered IV. Will monitor closely. Reevaluation #2: 12/24/18 20:07 Patient was reassessed, work of breathing is significantly improved on bipap, pulse improved to 105. Will continue to monitor closely. EKG: Sinus Tachycardia 106 Normal axis, normal intervals No acute ST-T wave changes are present Reevaluation #3: 12/24/18 20:31 Laboratory studies were reviewed, WBC 13.5, labs are otherwise grossly unremarkable for an acute process. CXR: COPD, Bullous changes upper lobes bilaterally Probable infiltrate right base Small effusion right base Patient was updated in all results, reports he is feeling mild anxiety, will administer Ativan 0.5 mg IV, initiate treatment for probable CAP (does not meet criteria for HCAP), and admit for further evaluation. Patient is in agreement with the plan of care as discussed. Reevaluation #4: 12/24/18 20:41 Case was discussed Rosario Mccoy, YOHANA, will accept admission at this time. Reevaluation #5: 12/24/18 21:48 Patient was removed from Bipap at this time, will trial patient off the bipap and monitor closely. Medical Decision Making - Lab Data Result diagrams: 12/24/18 19:35 12/24/18 19:35 Critical Care Time Critical Care Time: Yes Total Critical Care Time: 45 Critical Care Time: Diagnosis and treatment for CAP, respiratory failure on Bipap, EKG interpretation, bipap management, discussion with senior consultant for admission. Disposition Disposition: Admit Clinical Impression: HCAP (healthcare-associated pneumonia) COPD (chronic obstructive pulmonary disease) Qualifiers: COPD type: COPD with acute exacerbation Qualified Code(s): J44.1 - Chronic obstructive pulmonary disease with (acute) exacerbation Disposition: Still a Patient at [facility] Decision to Admit: Admit from ER Decision to Admit Date: 12/24/18 Decision to Admit Time: 20:38 Condition: (2) Stable Time of Disposition: 20:38 Quality - Quality Measures Quality Measures: N/A - Blood Pressure Screening Does Patient Have Any of the Following: Active Dx of HTN Blood Pressure Classification: Hypertensive Reading Systolic Measurement: 186 Diastolic Measurement: 101 Screening for High Blood Pressure: Patient Exclusion, Hx of HTN [[id number]]
[2018-12-24 20:03] LABS: BASO % 0.1 % (0-6); EOS % 3.4 % (0-6); GRAN % 74.7 % (47-80); HEMATOCRIT 36.6 % (42.0-52.0); LYMPH % 13.4 % (16-45); MEAN CELL VOLUME 92.9 fl (81-97); MEAN CORPUSCULAR HGB CONC 35.5 g/dl (32-36); MONO % 8.4 % (0-9); PLATELET COUNT 334 K/uL (130-400); RED BLOOD COUNT 3.94 M/uL (4.40-5.70); WHITE BLOOD COUNT W/O DIFF 13.5 K/uL (4.2-12.2)
[2018-12-24 20:05] LABS: MEAN CORPUSCULAR HEMOGLOBIN 32.9 pg (27-33)
[2018-12-24 20:17] LABS: BLOOD UREA NITROGEN 15 mg/dL (8-23); CREATININE 0.7 mg/dL (0.7-1.2); EST GLOMERULAR FILTRATION RATE > 60 mL/min
[2018-12-24 20:18] LABS: TOTAL PROTEIN 7.1 g/dL (6.6-8.7)
[2018-12-24 20:20] LABS: GLUCOSE,RANDOM 118 mg/dL (74-109)
[2018-12-24 20:22] LABS: ALT/SGPT 16 U/L (<41)
[2018-12-24 20:23] LABS: ALB/GLOB RATIO 1.7 (1.1-1.8); ALBUMIN 4.5 g/dL (4.0-5.0); ALKALINE PHOSPHATASE 83 U/L (40-129); AST/SGOT 14 U/L (10.0-50.0)
[2018-12-24] MEDS ORDERED: CEFTRIAXONE 1GM/50ML BAG 1 GM/50 ML BAG IVPB ONE (20:43)
[2018-12-24] MEDS ORDERED: LORAZEPAM 2 MG/ML VIAL IV ONE (21:56)
[2018-12-24] MEDS ORDERED: [UNRECOGNIZED DRUG - OTHER] IH SCH (22:33)
[2018-12-24] MEDS ORDERED: ACETAMINOPHEN 500 MG TABLET PO PRN (22:33)
[2018-12-24] MEDS ORDERED: CEFTRIAXONE SODIUM 1 GM in 0.9 % SODIUM CHLORIDE 100ML 100 ML IVPB SCH (22:33)
[2018-12-24] MEDS ORDERED: FORMOTEROL FUMARATE IH SCH (22:33)
[2018-12-24] MEDS ORDERED: ALBUTEROL SULFATE (0.083%) 2.5 MG/3 ML NEB INH PRN (22:33)
[2018-12-24] MEDS ORDERED: TRAZODONE HCL 100 MG PO SCH (22:33)
[2018-12-24] MEDS ORDERED: BUDESONIDE IH SCH (22:33)
[2018-12-24] MEDS ORDERED: AZITHROMYCIN 500 MG in 0.9 % SODIUM CHLORIDE 250ML 250 ML IVPB SCH (22:33)
[2018-12-24] MEDS: 0.9 % SODIUM CHLORIDE 1000ML 1,000 ML IV PRN (23:03)
[2018-12-24] MEDS: BACLOFEN 10 MG TABLET PO PRN (23:24)
[2018-12-24] MEDS: CARVEDILOL 3.125 MG TABLET PO SCH (23:25)
[2018-12-24] MEDS: HYDROCODONE/APAP 5/325MG TABLET PO PRN (23:25)
[2018-12-24] MEDS: TRAZODONE 50 MG TABLET PO SCH (23:26)
[2018-12-24] MEDS: IPRATROPIUM/ALBUTEROL (0.5MG/3MG) NEB INH SCH (23:50)
[2018-12-25] MEDS: IPRATROPIUM/ALBUTEROL (0.5MG/3MG) NEB INH SCH ×6 (05:10→21:53)
--- NOTE | 2018-12-25 06:33 | RADIOLOGY REPORT ---
EXAM: CHEST, AP VIEW HISTORY: DIFFICULTY IN BREATHING ALL DAY. TECHNIQUE: AP views of the upper and lower chest were obtained. Comparison: Two view chest 10/04/18. FINDINGS: The heart is not enlarged. The lungs again appear quite hyperinflated consistent with advanced underlying COPD probably with prominent bullous changes particularly in the upper lungs bilaterally, however, there is greater blunting of the right lateral costophrenic angle probably representing some increase in right basilar effusion. A small amount of streaky atelectasis or infiltrate in the right base as well has also developed in the interval. Multiple old left rib fractures. Apparent resection of a section of the right fifth rib posteriorly, as was the case previously as well. IMPRESSION: 1. ADVANCED COPD LIKELY WITH EXTENSIVE BULLOUS CHANGES IN THE UPPER LUNGS. 2. SMALL PATCH OF NEW INFILTRATE IN THE RIGHT BASE ALONG WITH PROBABLY SOME MILD NEW RIGHT BASILAR EFFUSION COMPARED WITH 10/04/18. FOLLOW-UP FILMS ARE SUGGESTED. JOB NUMBER: [id number] MTDD
[2018-12-25] MEDS: HYDROCODONE/APAP 5/325MG TABLET PO PRN ×2 (07:44→19:45)
[2018-12-25] MEDS: 0.9 % SODIUM CHLORIDE 1000ML 1,000 ML IV PRN ×2 (07:45→16:41)
[2018-12-25] MEDS: ENOXAPARIN 40 MG/0.4 ML SYR SQ SCH (09:48)
[2018-12-25] MEDS: CLOPIDOGREL 75MG TABLET PO SCH (09:49)
[2018-12-25] MEDS: CARVEDILOL 3.125 MG TABLET PO SCH ×2 (09:49→22:47)
[2018-12-25] MEDS: ATORVASTATIN 20 MG TABLET PO SCH (09:49)
[2018-12-25] MEDS: LISINOPRIL 20 MG TABLET PO SCH (09:49)
[2018-12-25] MEDS: HYDROCHLOROTHIAZIDE 25 MG TABLET PO SCH (09:49)
[2018-12-25] MEDS ORDERED: METHYLPREDNISOLONE PF 125MG/VIAL IVP SCH (10:00)
[2018-12-25] MEDS ORDERED: Non-Formulary MISC (Lisinopril/Hydrochlorothiazide [Lisinopril-Hctz 20-25 Mg Tab] 1 TAB) PO SCH (10:00)
[2018-12-25] MEDS ORDERED: UMECLIDINIUM BROMIDE (INCRUSE) 62.5MCG IH SCH (10:00)
[2018-12-25] MEDS: BREO (FLUTICASONE/VILANTEROL) 200MCG/25MCG INHALER INH SCH ×2 (10:04→12:57)
--- NOTE | 2018-12-25 10:23 | History & Physical ---
History of Present Illness - Date of Service Date of Service for History & Physical: 12/25/18 - History of Present Illness Admitting Diagnosis: CAP. Respiratory failure. COPD exacerbation History of Present Illness: Mr. Acevedo is a 68 y/o male who is here after experiencing worsening shortness of breath yesterday afternoon. The patient says that he was sitting on his couch watching TV and he all of a sudden became short of breath. He has had intermittent cough with small amount of green phlegm but he he denies any other symptoms. He has a history of COPD and reports compliance with inhalers but he still smokes. The patient says that he does not have frequent exacerbations and has never had to be admitted for Bipap or intubation. On presentation to the ED the patient's saturation was 94% on room air. He was tachycardic 123, tachypneic at a rate of 33, and hypertensive with blood pressure 186/101. CXR shows infiltrate in the right lung base. The patient was started on IV solumedrol, duonebs, and IV antibiotics. PCP: Dr. Hannah Fry Travel Screening - Travel/Exposure Within Last 30 Days Have you traveled within the last 30 days?: No - Travel/Exposure Within Last Year Have you traveled outside the [place] in the last year?: No - Additonal Travel Details Have you been exposed to anyone with a communicable illness?: No - Travel Symptoms Symptom Screening: None Review of Systems Constitutional: Denies: Chills, Fever, Malaise, Night sweats Eyes: Denies: Eye discharge, Eye pain ENT: Denies: Congestion, Ear pain, Epistaxis Respiratory: Reports: Dyspnea, Wheezes. Denies: Cough, Stridor Cardiovascular: Reports: Dyspnea on exertion. Denies: Chest pain, Edema Endocrine: Denies: Fatigue, Heat or cold intolerance Gastrointestinal: Denies: Abdominal pain, Nausea, Vomiting Genitourinary: Denies: Incontinence, Retention Musculoskeletal: Denies: Arthralgia, Back pain Skin: Denies: Bruising, Change in color Neurological: Denies: Abnormal gait, Confusion, Headache, Seizure Psychiatric: Denies: Anxiety Hematological/Lymphatic: Denies: Anemia, Blood Clots Past Medical History - SOCIAL HISTORY Smoking Status: Former smoker - RESPIRATORY Hx Respiratory Disorders: Yes Hx COPD: Yes Hx Pneumonia: Yes (yearly) Comment:: spontaneous pneumo - CARDIOVASCULAR Hx Cardio Disorders: Yes Hx Hypertension: Yes - NEURO Hx Neuro Disorders: No - GI Hx GI Disorders: No - Hx Genitourinary Disorders: No - ENDOCRINE Hx Endocrine Disorders: No - MUSCULOSKELETAL Hx Musculoskeletal Disorders: Yes Hx Arthritis: Yes - PSYCH Hx Psych Problems: Yes Hx Depression: Yes - HEMATOLOGY/ONCOLOGY Hx Hematology/Oncology Disorders: No Family Medical History Hx Anxiety: Brother/Sister Hx Depression: Brother/Sister Hx Diabetes: Brother/Sister Hx Heart Disease: Mother, Grandparents Hx Resp Disorders: Father H&P Meds/Allergies - Allergies Allergies: Allergies Allergy/AdvReac Type Severity Reaction Status Date / Time No Known Drug Allergies Allergy Verified 11/09/18 02:32 - Home Medications Home Medications Medication Instructions Recorded Confirmed Last Taken Hydrocodone/Acetaminophen 5 mg PO TID PRN 12/24/18 12/24/18 12/24/18 [Hydrocodone/Acetaminophen 5mg/325mg] - Active Medications Active Medications: Current Medications Acetaminophen (Tylenol 500mg Tab) 1,000 mg PO Q6H PRN PRN Reason: PAIN - MILD(1-4)/FEVER Hydrocodone Bitart/Acetaminophen ([place] 5mg/325mg) 1 each PO TID PRN PRN Reason: PAIN - MILD (1-4) Last Admin: 12/25/18 07:44 Dose: 1 each Albuterol Sulfate (Albuterol Sulfate) 2.5 mg INH RESP.Q2H PRN PRN Reason: DIFFICULTY IN BREATHING Albuterol/Ipratropium (Duoneb) 3 ml [facility] Last Admin: 12/25/18 09:59 Dose: 3 ml Atorvastatin Calcium (Lipitor) [address] [facility] Last Admin: 12/25/18 09:49 Dose: 20 mg Azithromycin (Zithromax) [address] [facility] Baclofen (Lioresal) 10 mg PO BID PRN PRN Reason: SPASMS Last Admin: 12/24/18 23:24 Dose: 10 mg Carvedilol (Coreg) 3.[address] [facility] Last Admin: 12/25/18 09:49 Dose: 3.125 mg Clopidogrel Bisulfate (Plavix) [address] [facility] Last Admin: 12/25/18 09:49 Dose: 75 mg Enoxaparin Sodium (Lovenox) [address] [facility] Last Admin: 12/25/18 09:48 Dose: 40 mg Hydrochlorothiazide (Hctz 25mg) [address] [facility] Last Admin: 12/25/18 09:49 Dose: 25 mg Sodium Chloride () 1,000 mls @ 125 mls/hr IV .Q8H PRN PRN Reason: LARGE VOLUME IV Last Admin: 12/25/18 07:45 Dose: 125 mls/hr CEFTRIAXONE 1GM/50ML BAG (Ceftriaxone 1 Gm-D5w Bag) 1 gm in 50 mls @ 100 mls/ hr IVPB Q24H [facility] Lisinopril (Zestril) [address] [facility] Last Admin: 12/25/18 09:49 Dose: 40 mg Methylprednisolone Sodium Succinate (Solu-Medrol) [address] [facility] Last Admin: 12/25/18 09:46 Dose: 125 mg Trazodone HCl (Desyrel) [address] [facility] Last Admin: 12/24/18 23:26 Dose: 100 mg Physical Exam - Vital Signs Vital Signs: Vital Signs - Last 24 Hrs Temp Pulse Pulse Pulse Resp BP BP 12/25/18 10:03 106 H 18 12/25/18 07:41 98.1 F 100 H 17 167/79 12/25/18 05:10 91 H 20 12/25/18 04:00 97.9 F 95 H 22 158/86 12/24/18 23:01 87 12/24/18 22:44 97.9 F 104 H 22 175/82 12/24/18 22:27 92 H 20 12/24/18 21:24 93 H 24 157/81 12/24/18 20:34 102 H 20 139/86 12/24/18 20:04 110 H 20 148/114 12/24/18 20:00 102 H 18 12/24/18 19:53 123 H 36 H 186/101 Pulse Ox 12/25/18 10:03 98 12/25/18 07:41 97 12/25/18 05:10 93 L 12/25/18 04:00 95 12/24/18 23:01 12/24/18 22:44 92 L 12/24/18 22:27 97 12/24/18 21:24 100 12/24/18 20:34 99 04/01/19 20:04 100 12/24/18 20:00 12/24/18 19:53 94 L - General General Appearance: Alert, Oriented x3, Cooperative, Severe distress, Other ( Tripod positioning, decreased air movement bilaterally) Limitations: No limitations - Head Head exam: Atraumatic, Normocephalic, Normal inspection Head exam detail: negative: Abrasion, Contusion, Fan's sign, General tenderness, Hematoma, Laceration - Eye Eye exam: Normal appearance. negative: Conjunctival injection, Periorbital swelling, Periorbital tenderness, Scleral icterus - ENT Ear exam: negative: Auricular hematoma, Auricular trauma Nasal Exam: negative: Active bleeding, Discharge, Dried blood, Foreign body Mouth exam: negative: Drooling, Laceration, Muffled voice, Tongue elevation - Neck Neck exam: Normal inspection. negative: Meningismus, Tenderness - Respiratory Respiratory exam: Decreased breath sounds, Respiratory distress. negative: Rales, Rhonchi, Stridor - Cardiovascular Cardiovascular Exam: Normal rhythm, Normal heart sounds, Tachycardia - GI/Abdominal GI/Abdominal exam: Soft. negative: Rebound, Rigid, Tenderness - Rectal Rectal exam: Deferred - exam: Deferred - Extremities Extremities exam: Normal inspection. negative: Pedal edema, Tenderness - Back Back exam: Denies: CVA tenderness (R), CVA tenderness (L) - Neurological Neurological exam: Alert, Normal gait, Oriented X3 - Psychiatric Psychiatric exam: Normal affect, Normal mood - Skin Skin exam: Normal color. negative: Abrasion Type of lesion: negative: abrasion Results - Labs Result Diagrams: 12/24/18 19:35 12/24/18 19:35 Labs Last 24 Hours: Laboratory Results - last 24 hr 12/24/18 12/24/18 19:35 19:35 WBC 13.5 H RBC 3.94 L Hgb 13.0 L Hct 36.6 L MCV 92.9 MCH 32.9 MCHC 35.5 RDW 13.0 Plt Count 334 MPV 9.0 Gran % 74.7 Lymphocytes % 13.4 L Monocytes % 8.4 Eosinophils % 3.4 Basophils % 0.1 Sodium 130 L Potassium 3.7 Chloride 91 L Carbon Dioxide 25.0 Anion Gap 14.0 BUN 15 Creatinine 0.7 Estimated GFR > 60 Random Glucose 118 H Calcium 9.2 Total Bilirubin 0.70 AST 14 ALT 16 Alkaline Phosphatase 83 Troponin T < 0.010 Total Protein 7.1 Albumin 4.5 Globulin 2.6 Albumin/Globulin Ratio 1.7 VTE H&P Assessment - Risk for VTE Risk for VTE: Yes Risk Level: High Risk Assessment Date: 12/25/18 Risk Assessment Time: 11:09 VTE Orders Placed or Will Be Placed: Yes Plan - Inpatient Certification Inpatient Certification: Admit to inpatient care: Based on my medical assessment, after consideration of patient's risk factors (age, co-morbidities and patient presenting symptoms and acuity), I expect that this patient will remain in the hospital greater than or equal to two midnights and that the services needed warrant inpatient care because: Patient Risk Factors: [] Estimated length of stay: [] The patient may reasonably be expected to be discharged or transferred to a hospital within 96 hours after admission to [facility]. Services needed: [] Post hospital care (if known): [] I certify that my determination is in accordance with my understanding of Medicare requirements for reasonable and necessary inpatient services. - Detailed Diagnosis and Plan (1) COPD (chronic obstructive pulmonary disease) Current Visit: Yes Status: Acute Qualifiers: COPD type: COPD with acute exacerbation Qualified Code(s): J44.1 - Chronic obstructive pulmonary disease with (acute) exacerbation Base Code: J44.9 - CHRONIC OBSTRUCTIVE PULMONARY DISEASE, UNSPECIFIED Comment : 12/25/18: - 2/2 non-compliance, smoking, RLL infiltrate. - sats maintained >95% on RA, oxygen PRN - duonebs Q4H, Breo QD, Prednisone 40mg QD (2) HTN (hypertension) Current Visit: No Status: Acute Base Code: I10 - ESSENTIAL (PRIMARY) HYPERTENSION Comment: 12/25/18: - resume lisinopril 40mg daily and coreg 3.125mg bid, hctz 25mg daily (3) CAD (coronary artery disease) Current Visit: No Status: Acute Base Code: I25.10 - ATHSCL HEART DISEASE OF [place] CORONARY ARTERY W/O ANG PCTRS Comment: 12/25/18: - resume Lisinopril,Coreg,, ASA, Statin therapy. (4) DVT prophylaxis Current Visit: Yes Status: Acute Base Code: [id number] - Comment: 12/25/18: - Lovenox 40mg sub q QD (5) Full code status Current Visit: No Status: Acute Base Code: Z78.9 - OTHER SPECIFIED HEALTH STATUS Comment: 12/25/18: - full code
[2018-12-25] MEDS: IBUPROFEN 400 MG TABLET PO PRN ×2 (12:51→22:46)
[2018-12-25] MEDS: BACLOFEN 10 MG TABLET PO PRN ×2 (13:12→22:46)
[2018-12-25] MEDS ORDERED: LORAZEPAM 0.5 MG TABLET PO PRN (15:55)
[2018-12-25] MEDS: ALPRAZOLAM 1 MG TAB PO PRN (16:12)
[2018-12-25] MEDS ORDERED: CEFTRIAXONE 1GM/50ML BAG 1 GM/50 ML BAG IVPB SCH (22:00)
[2018-12-25] MEDS ORDERED: AZITHROMYCIN 500 MG TABLET PO SCH (22:00)
[2018-12-25] MEDS: TRAZODONE 50 MG TABLET PO SCH (22:45)
[2018-12-26] MEDS: HYDROCODONE/APAP 5/325MG TABLET PO PRN ×2 (00:31→07:51)
[2018-12-26] MEDS: 0.9 % SODIUM CHLORIDE 1000ML 1,000 ML IV PRN (02:14)
[2018-12-26] MEDS: IPRATROPIUM/ALBUTEROL (0.5MG/3MG) NEB INH SCH ×2 (05:37→10:10)
[2018-12-26 07:12] LABS: HEMATOCRIT 31.4 % (42.0-52.0); HEMOGLOBIN 10.7 gm/dl (14.0-18.0); MEAN CORPUSCULAR HEMOGLOBIN 32.7 pg (27-33); MEAN CORPUSCULAR HGB CONC 34.1 g/dl (32-36); MEAN PLATELET VOLUME 9.2 fl (7.4-10.4); PLATELET COUNT 258 K/uL (130-400); RED BLOOD COUNT 3.27 M/uL (4.40-5.70); RED CELL DISTRIBUTION WIDTH 13.4 % (11.5-14.5); WHITE BLOOD COUNT W/O DIFF 14.1 K/uL (4.2-12.2)
[2018-12-26 07:26] LABS: BLOOD UREA NITROGEN 15 mg/dL (8-23); CREATININE 0.7 mg/dL (0.7-1.2); EST GLOMERULAR FILTRATION RATE > 60 mL/min; GLUCOSE,RANDOM 108 mg/dL (74-109)
[2018-12-26] MEDS ORDERED: PREDNISONE 20 MG TAB PO SCH (08:00)
--- NOTE | 2018-12-26 09:30 | Discharge Summary ---
Providers Discharge Summary Date: 12/26/18 Date of admission: 12/24/18 22:24 Attending physician: RAHUL GERMAN Primary care physician: RAHUL GERMAN Physical Exam - Vital Signs Vital Signs: Vital Signs - Last 24 Hrs Temp Pulse Pulse Resp BP Pulse Ox 12/26/18 08:00 97.2 F L 90 16 158/82 95 12/26/18 05:37 87 18 94 L 12/25/18 21:53 108 H 22 95 12/25/18 20:00 98 F 109 H 22 183/83 93 L 12/25/18 17:34 103 H 20 92 L 12/25/18 16:00 98.1 F 107 H 16 185/85 96 12/25/18 12:59 103 H 34 H 97 12/25/18 12:00 98.3 F 107 H 20 144/77 93 L 12/25/18 10:03 106 H 18 98 - General General Appearance: Alert, Oriented x3, Cooperative, Severe distress, Other ( Tripod positioning, decreased air movement bilaterally) Limitations: No limitations - Head Head exam: Atraumatic, Normocephalic, Normal inspection Head exam detail: negative: Abrasion, Contusion, Fan's sign, General tenderness, Hematoma, Laceration - Eye Eye exam: Normal appearance. negative: Conjunctival injection, Periorbital swelling, Periorbital tenderness, Scleral icterus - ENT Ear exam: negative: Auricular hematoma, Auricular trauma Nasal Exam: negative: Active bleeding, Discharge, Dried blood, Foreign body Mouth exam: negative: Drooling, Laceration, Muffled voice, Tongue elevation - Neck Neck exam: Normal inspection. negative: Meningismus, Tenderness - Respiratory Respiratory exam: Decreased breath sounds, Respiratory distress. negative: Rales, Rhonchi, Stridor - Cardiovascular Cardiovascular Exam: Normal rhythm, Normal heart sounds, Tachycardia - GI/Abdominal GI/Abdominal exam: Soft. negative: Rebound, Rigid, Tenderness - Rectal Rectal exam: Deferred - exam: Deferred - Extremities Extremities exam: Normal inspection. negative: Pedal edema, Tenderness - Back Back exam: Denies: CVA tenderness (R), CVA tenderness (L) - Neurological Neurological exam: Alert, Normal gait, Oriented X3 - Psychiatric Psychiatric exam: Normal affect, Normal mood - Skin Skin exam: Normal color. negative: Abrasion Type of lesion: negative: abrasion Hospitalization - Hospitalization Admission Diagnosis: CAP. Respiratory failure. COPD exacerbation - Problem List/Discharge Diagnosis (1) COPD (chronic obstructive pulmonary disease) Current Visit: Yes Status: Acute Discharge Diagnosis: COPD type: COPD with acute exacerbation Qualified Code(s): J44.1 - Chronic obstructive pulmonary disease with (acute) exacerbation Base Code: J44.9 - CHRONIC OBSTRUCTIVE PULMONARY DISEASE, UNSPECIFIED Comment : 12/26/18: - 2/2 non-compliance, smoking, RLL infiltrate. - sats maintained >95% on RA, oxygen PRN, patient not requiring any supplemental oxygen. - duonebs Q4H, Breo QD, Prednisone 40mg QD (2) HTN (hypertension) Current Visit: No Status: Acute Base Code: I10 - ESSENTIAL (PRIMARY) HYPERTENSION Comment: 12/26/18: - resume lisinopril 40mg daily and coreg 3.125mg bid, hctz 25mg daily (3) CAD (coronary artery disease) Current Visit: No Status: Acute Base Code: I25.10 - ATHSCL HEART DISEASE OF [place] CORONARY ARTERY W/O ANG PCTRS Comment: 12/26/18: - resume Lisinopril,Coreg,, ASA, Statin therapy. (4) DVT prophylaxis Current Visit: Yes Status: Acute Base Code: PXY7480 - Comment: 12/26/18: - Lovenox 40mg sub q QD (5) Full code status Current Visit: No Status: Acute Base Code: Z78.9 - OTHER SPECIFIED HEALTH STATUS Comment: 12/25/18: - full code - Hospitalization Course Disposition: Home, Self-Care Hospital Course: Mr. Acevedo is a 68 y/o male who is here after experiencing worsening shortness of breath yesterday afternoon. The patient says that he was sitting on his couch watching TV and he all of a sudden became short of breath. He has had intermittent cough with small amount of green phlegm but he he denies any other symptoms. He has a history of COPD and reports compliance with inhalers but he still smokes. The patient says that he does not have frequent exacerbations and has never had to be admitted for Bipap or intubation. On presentation to the ED the patient's saturation was 94% on room air. He was tachycardic 123, tachypneic at a rate of 33, and hypertensive with blood pressure 186/101. CXR shows infiltrate in the right lung base. The patient was started on IV solumedrol, duonebs, and IV antibiotics. 12/26/18: The patient was able to maintain saturations without supplemental oxygen. he still has complaint of rib pain but says that it is manageable with pain medication. His blood pressure this morning is elevated but he has not yet had his medications. Follow up with Dr. German is scheduled for January 09. PCP: Dr. Hannah Fry Procedures: Imaging and X-Rays 12/24/18 19:49 CHEST 1 VIEW [RAD] Stat Cardiology Procedures 12/24/18 19:49 EKG NOW 12/24/18 22:33 Wood Barker .Continuous Abnormal Labs: Abnormal Lab Results 12/24/18 12/24/18 12/26/18 Range/Units 19:35 19:35 06:57 WBC 13.5 H 14.1 H (4.2-12.2) K/uL RBC 3.94 L 3.27 L (4.40-5.70) M/uL Hgb 13.0 L 10.7 L (14.0-18.0) gm/dl Hct 36.6 L 31.4 L (42.0-52.0) % Neutrophils % 93.0 H (47-80) % Lymphocytes % 13.4 L (16-45) % Lymphocytes 4.0 L (16-45) % Sodium 130 L (136-145) mmol/L Chloride 91 L (98-107) mmol/L Random Glucose 118 H (74-109) mg/dL Calcium (8.8-10.2) mg/dL 12/26/18 Range/Units 06:57 WBC (4.2-12.2) K/uL RBC (4.40-5.70) M/uL Hgb (14.0-18.0) gm/dl Hct (42.0-52.0) % Neutrophils % (47-80) % Lymphocytes % (16-45) % Lymphocytes (16-45) % Sodium (136-145) mmol/L Chloride (98-107) mmol/L Random Glucose (74-109) mg/dL Calcium 8.4 L (8.8-10.2) mg/dL Condition at Discharge: (2) Stable Discharge Medications - Discharge Medications Prescriptions: Azithromycin [Zithromax] 500 mg PO QHS 5 Days #5 tab Alprazolam [Xanax] 1 mg PO Q6HR PRN #7 tab PRN Reason: Anxiety Albuterol Sulfate [Ventolin Hfa] 1 inh INH ASDIR PRN #1 inhaler PRN Reason: Wheezing Cefdinir [Omnicef] 300 mg PO BID 5 Days #10 cap Prednisone [Prednisone 20Mg] 40 mg PO DAILYWM 3 Days #3 tab Home Medications: Ambulatory Orders Budesonide/Formoterol Fumarate [Symbicort 160-4.5 Mcg Inhaler] 2 inh IH BID [Last Taken 12/24/18] Trazodone HCl 100 mg PO QHS 05/11/14 [Last Taken 12/24/18] Carvedilol [Coreg] 3.125 mg PO BID 09/21/18 [Last Taken 12/24/18] Atorvastatin Calcium 10 mg PO DAILY 10/04/18 [Last Taken 12/24/18] Baclofen 10 mg PO BID PRN 10/04/18 [Last Taken 12/24/18] Lisinopril 20 mg PO DAILY 10/04/18 [Last Taken 12/24/18] Lisinopril/Hydrochlorothiazide [Lisinopril-Hctz 20-25 mg Tab] 1 tab PO DAILY 07/13 [Last Taken 12/24/18] Tiotropium [place] [Spiriva Respimat] 1 inh IH DAILY 11/09/18 [Last Taken ] Clopidogrel Bisulfate [Clopidogrel] 75 mg PO DAILY 12/12/18 [Last Taken 12/24/18 ] Hydrocodone/Acetaminophen [Hydrocodone/Acetaminophen 5mg/325mg] 5 mg PO TID PRN 12/24/18 [Last Taken 12/24/18] Albuterol Sulfate [Ventolin Hfa] 1 inh INH ASDIR PRN #1 inhaler 12/26/18 [Last Taken Unknown] Alprazolam [Xanax] 1 mg PO Q6HR PRN #7 tab 12/26/18 [Last Taken Unknown] Azithromycin [Zithromax] 500 mg PO QHS 5 Days #5 tab 12/26/18 [Last Taken Unknown] Cefdinir [Omnicef] 300 mg PO BID 5 Days #10 cap 12/26/18 [Last Taken Unknown] Hydrochlorothiazide [Hctz] 25 mg PO DAILY tablet 12/26/18 [Last Taken Unknown] Ipratropium/Albuterol [Duoneb] 3 ml INH RESP.Q4H.[place] ampul.neb 12/26/18 [Last Taken Unknown] Prednisone [Prednisone 20Mg] 40 mg PO DAILYWM 3 Days #3 tab 12/26/18 [Last Taken Unknown] Discharge Plan - Discharge Instructions Activity at Discharge: Increase Activity as Tolerated Additional Instructions: Appointment to establish primary care with Dr. German at [facility] on January 09 at 2:00PM Your medications have been sent to [facility]. Please take as instructed. Quality Measures - Quality Measures Quality Measures: Advance Directives, Coronary Artery Disease: Antiplatelet Therapy, Documentation of Current Medications in Medical Record, Elder Maltreatment Screen and Follow-Up Plan, Screening for High Blood Pressure and F/ U Documented - Current Medications Quality Measure: Measure #130: Documentation of Current Medications Documentation of Current Medications: <Current Medications Documented/Reviewed> [G8427] - Blood Pressure Screening Quality Measure: Screening for High Blood Pressure and Follow-Up Documented Does Patient Have Any of the Following: Active Dx of HTN Blood Pressure Classification: Hypertensive Reading Systolic Measurement: 186 Diastolic Measurement: 101 Screening for High Blood Pressure: Patient Exclusion, Hx of HTN [G9744] - Coronary Artery Disease Quality Measure: Measure #6: Coronary Artery Disease (CAD) Antiplatelet Therapy: <ASA or clopidogrel prescribed> [3253F] - Advance Directives Quality Measure: Measure #47: Care Plan Advance Directives Established: No Advance Directives Information Provided To Patient: Yes Advance Directives on File: No Living Will: No Power of Regional Sales Executive: No Advance Care Planning: <Care Plan/Decision Maker Documented; Discussed & Documented> [3428F] - Elder Abuse Suspicion Index Screening: Elder Abuse Suspicion Index Screening Rely on people for bathing, dressing, shopping, banking, etc: No Prevented from getting food, clothes, medication, etc: No Made to feel shamed or threatened by someone: No Forced to sign papers or use money against will: No Feel afraid, touched in ways not wanted or hurt physically: No Poor eye contact, withdrawn, malnourished, cuts or bruises: No Screening Result: Negative result EASI Reference Information: Sharon SURESH, Naila C, Stan D, Roxi Montalvo.Development and validation of a tool to assist physicians identification of elder abuse: The Elder Abuse Suspicion Index (EASI ). Journal of Elder Abuse and Neglect, 2008; 20 (3): 276-300. - Elder Maltreatment Screen Quality Measures: Elder Maltreatment Screen and Follow-Up Plan Elder Maltreatment Screen: <Negative, No Follow-Up Plan Required> [G7798]
[2018-12-26] MEDS: ATORVASTATIN 20 MG TABLET PO SCH (09:38)
[2018-12-26] MEDS: BACLOFEN 10 MG TABLET PO PRN (09:39)
[2018-12-26] MEDS: LISINOPRIL 20 MG TABLET PO SCH (09:39)
[2018-12-26] MEDS: ALPRAZOLAM 1 MG TAB PO PRN (09:40)
[2018-12-26] MEDS: CLOPIDOGREL 75MG TABLET PO SCH (09:40)
[2018-12-26] MEDS: CARVEDILOL 3.125 MG TABLET PO SCH (09:40)
[2018-12-26] MEDS: HYDROCHLOROTHIAZIDE 25 MG TABLET PO SCH (09:41)
[2018-12-26] MEDS: ENOXAPARIN 40 MG/0.4 ML SYR SQ SCH (09:41)
[2018-12-26] MEDS: BREO (FLUTICASONE/VILANTEROL) 200MCG/25MCG INHALER INH SCH (10:10)
== END 2018-12-26 10:45 | disposition home or self-care (01) ==
LOC: ER 19:45 → MEDSURG 22:24 → INTOOBSV 22:24
PROVIDERS: ADMIT Internal Medicine; ATTEND Internal Medicine
DX: J18.9 Pneumonia, unspecified organism (principal); J44.1 Chronic obstructive pulmonary disease with (acute) exacerbation; J96.90 Respiratory failure, unspecified, unspecified whether with hypoxia or hypercapnia; I25.10 Atherosclerotic heart disease of native coronary artery without angina pectoris; I10 Essential (primary) hypertension; M19.90 Unspecified osteoarthritis, unspecified site; F12.90 Cannabis use, unspecified, uncomplicated; Z91.81 History of falling; Z87.891 Personal history of nicotine dependence
CPT/HCPCS: 71045; 80048; 80053; 84484; 85025; 85027; 93005; 93010; 94640; 94660; 94761; 96365; 96375; 99217; 99220; 99291; J0456; J0696; J1650; J2930; J7050; J7512

== ENCOUNTER 2018-12-31 20:48 | Emergency (ER) | payer MEDICARE ==
[2018-12-31] MEDS ORDERED: MORPHINE SULFATE 10 MG/ML VIAL IVP ONE (20:56)
--- NOTE | 2018-12-31 21:02 | Emergency Department Record ---
Anxiety - General Chief Complaint: Panic attack Stated Complaint: PANIC ATTACK Time Seen by Provider: 12/31/18 20:52 Source: Patient, EMS Mode of Arrival: EMS Limitations: No limitations - History of Present Illness Initial Comments: 68 yo male presents with right rib pain. He states he broke 2-3 ribs about two weeks ago. He has been improving but the ribs still hurt. He states he tried to go out to a local restaurant tonight and felt like this was too much activity. His pain increased causing him to feel anxious and then short of breath. He took a [place] and is starting to feel some improvement but it still hurts on the right to breath. Otherwise he states his COPD seems under control. He was 96% on arrival on room air. He is not on oxygen at home. Dr German is his PCP. MD Complaint: Other Onset/Timin -: Minutes(s) Symptoms: Chest pain (right rib pain) Place: Other (Local diner) Previous History of Same: Yes Severity: Moderate Quality: Constant Provoking factors: Emotional stress, Other (coughing and activity cause ribs to hurt) Worsens With: Other (moving or coughing) Associated symptoms: Chest pain (ribs on the right) - Related Data Home Medications: Previous Rx's Medication Instructions Recorded Albuterol Sulfate [Ventolin Hfa] 1 inh INH ASDIR PRN #1 inhaler 12/26/18 Alprazolam [Xanax] 1 mg PO Q6HR PRN #7 tab 12/26/18 Azithromycin [Zithromax] 500 mg PO QHS 5 Days #5 tab 12/26/18 Cefdinir [Omnicef] 300 mg PO BID 5 Days #10 cap 12/26/18 Hydrochlorothiazide [Hctz] 25 mg PO DAILY tablet 12/26/18 Ipratropium/Albuterol [Duoneb] 3 ml INH RESP.Q4H.WA ampul.neb 12/26/18 Prednisone [Prednisone 20Mg] 40 mg PO DAILYWM 3 Days #3 tab 12/26/18 Allergies/Adverse Reactions: Allergies Allergy/AdvReac Type Severity Reaction Status Date / Time No Known Drug Allergies Allergy Verified 11/09/18 02:32 Travel Screening - Travel/Exposure Within Last 30 Days Have you traveled within the last 30 days?: No Review of Systems Constitutional: Denies: Chills, Fever, Malaise, Weakness Eyes: Denies: Eye discharge ENT: Denies: Congestion, Dental pain, Throat pain Respiratory: Reports: As per HPI, Cough, Dyspnea. Denies: Hemoptysis, Stridor, Wheezes Cardiovascular: Reports: As per HPI, Chest pain. Denies: Edema, Palpitations, Paroxysmal nocturnal dyspnea, Syncope Endocrine: Denies: Fatigue Gastrointestinal: Denies: Abdominal pain, Diarrhea, Nausea, Vomiting Genitourinary: Denies: Dysuria, Frequency, Hematuria Musculoskeletal: Denies: Arthralgia, Back pain, Joint swelling, Myalgia, Neck pain Skin: Denies: Bruising, Change in color, Rash Neurological: Denies: Headache Psychiatric: Reports: Anxiety Hematological/Lymphatic: Denies: Blood Clots, Easy bleeding, Easy bruising Past Medical History - SOCIAL HISTORY Smoking Status: Former smoker Alcohol Use: None Drug Use: Occasional Drug Use Detail:: Marijuana - RESPIRATORY Hx Respiratory Disorders: Yes Hx COPD: Yes Hx Pneumonia: Yes (yearly) Comment:: spontaneous pneumo - CARDIOVASCULAR Hx Cardio Disorders: Yes Hx Hypertension: Yes - NEURO Hx Neuro Disorders: No - GI Hx GI Disorders: No - Hx Genitourinary Disorders: No - ENDOCRINE Hx Endocrine Disorders: No - MUSCULOSKELETAL Hx Musculoskeletal Disorders: Yes Hx Arthritis: Yes - PSYCH Hx Psych Problems: Yes Hx Depression: Yes - HEMATOLOGY/ONCOLOGY Hx Hematology/Oncology Disorders: No Family Medical History Any Significant Family History?: Yes Hx Anxiety: Brother/Sister Hx Depression: Brother/Sister Hx Diabetes: Brother/Sister Hx Heart Disease: Mother, Grandparents Hx Resp Disorders: Father Physical Exam - General General Appearance: Alert, Oriented x3, Cooperative, No acute distress Limitations: No limitations - Head Head exam: Atraumatic, Normocephalic, Normal inspection - Eye Eye exam: Normal appearance, PERRL. negative: Conjunctival injection, Scleral icterus - ENT ENT exam: Normal exam Ear exam: Normal external inspection Nasal Exam: Normal inspection Mouth exam: Normal external inspection - Neck Neck exam: Normal inspection. negative: Tenderness - Respiratory Respiratory exam: Normal lung sounds bilaterally, Chest wall tenderness (very tender right lateral, posterior ribs) Course Vital Signs 12/31/18 20:52 Temperature 97.7 F Pulse Rate [ 80 Pulse Ox Probe] Respiratory 36 H Rate Blood Pressure 161/89 [Left Arm] Pulse Ox 96 - Reevaluation(s) Reevaluation #1: EMR reviewed. CT of the chest on 12/12/18 with 10-12th rib fractures 12/31/18 21:38 The CBC was reviewed. No acute changes on the CBC The BMP demonstrates a mild hyponatremia of 126. He is asymptomatic. We discussed this lab result. Given it is mild and he is asymptomatic he will be DC's home and call his doctor tomorrow for a recheck. He can also have it rechecked in the ED or [facility]. 12/31/18 21:46 The CXR was reviewed Stable findings. Healing fractures. No pneumothorax. Significant chronic emphysematous. We discussed the results of the tests and questions were answered at the time of discharge. The patient is doing well and is comfortable with DC. DC vitals were reviewed. His pain and anxiety are controlled. We discussed at length reasons to immediately return to the ED as well as close follow up tomorrow or Monday to recheck the sodium level with his PCP or return to the ED The patient will call the PCP for close follow up of this ED visit to review this visit and the tests performed 12/31/18 21:57 Medical Decision Making - Lab Data Result diagrams: 12/31/18 20:58 12/31/18 20:58 Disposition Disposition: Discharge Clinical Impression: Rib fractures, Dyspnea, Hyponatremia Disposition: Home, Self-Care Condition: (1) Good Instructions: Rib Fracture (ED) Additional Instructions: Call your doctor for the next available follow up appointment tomorrow to Monday to recheck your sodium level Return to the ER for a recheck if worse, any new concerns or questions Review this ER visit and the tests performed with your family doctor Forms: Patient Portal Access Time of Disposition: 21:56 Quality - Quality Measures Quality Measures: N/A - Blood Pressure Screening Does Patient Have Any of the Following: No Blood Pressure Classification: Pre-Hypertensive BP Reading Systolic Measurement: 126 Diastolic Measurement: 74 Screening for High Blood Pressure: < Pre-Hypertensive BP, F/U Documented > [ G8950] Pre-Hypertensive Follow-up Interventions: Referral to alternative/primary care provider.
[2018-12-31 21:07] LABS: BASO % 0.3 % (0-6); EOS % 2.7 % (0-6); GRAN % 72.3 % (47-80); HEMATOCRIT 35.7 % (42.0-52.0); HEMOGLOBIN 12.9 gm/dl (14.0-18.0); LYMPH % 16.3 % (16-45); MEAN CELL VOLUME 91.8 fl (81-97); MEAN CORPUSCULAR HGB CONC 36.1 g/dl (32-36); MEAN PLATELET VOLUME 9.2 fl (7.4-10.4); MONO % 8.4 % (0-9); PLATELET COUNT 303 K/uL (130-400); RED BLOOD COUNT 3.89 M/uL (4.40-5.70); RED CELL DISTRIBUTION WIDTH 12.4 % (11.5-14.5); WHITE BLOOD COUNT W/O DIFF 10.3 K/uL (4.2-12.2)
[2018-12-31 21:08] LABS: MEAN CORPUSCULAR HEMOGLOBIN 33.1 pg (27-33)
[2018-12-31 21:15] LABS: BLOOD UREA NITROGEN 14 mg/dL (8-23); CREATININE 0.6 mg/dL (0.7-1.2); EST GLOMERULAR FILTRATION RATE > 60 mL/min
[2018-12-31 21:18] LABS: GLUCOSE,RANDOM 131 mg/dL (74-109)
--- NOTE | 2019-01-02 09:18 | RADIOLOGY REPORT ---
EXAM: CHEST, TWO VIEWS HISTORY: RIGHT RIB FRACTURE, PAIN. TECHNIQUE: PA and lateral upright views of the chest were obtained. Comparison: 12/24/18, 12/12/18, and 10/04/18. FINDINGS: The heart, mediastinum, and pulmonary vasculature are normal. Extensive bolus emphysematous changes are present within the upper lung lee bilaterally, left greater than right. There is a persistent small right pleural effusion with mild right basilar atelectasis. There is no pneumothorax on the current exam. The posterior right lower rib fractures are only partially included on this examination and appear similar. Healing left rib fractures are also noted. There has been previous resection of the posterior aspect of the right fifth rib. No new abnormalities are identified. IMPRESSION: 1. STABLE CHEST WITH NO ACUTE PROCESS IDENTIFIED. 2. PERSISTENT SMALL RIGHT PLEURAL EFFUSION WITH ASSOCIATED ATELECTASIS. 3. STABLE RIGHT POSTERIOR LOWER RIB FRACTURES AND HEALING LEFT RIB FRACTURES. JOB NUMBER: [id number] [facility]
== END 2018-12-31 22:11 | disposition home or self-care (01) ==
LOC: ER 20:48
DX: S22.41XD Multiple fractures of ribs, right side, subsequent encounter for fracture with routine healing (principal); E87.1 Hypo-osmolality and hyponatremia; R06.00 Dyspnea, unspecified; I10 Essential (primary) hypertension; J44.9 Chronic obstructive pulmonary disease, unspecified; F17.210 Nicotine dependence, cigarettes, uncomplicated
CPT/HCPCS: 71046; 80048; 85025; 96374; 99284; J2270

== ENCOUNTER 2019-01-02 20:30 | Emergency (ER) | payer MEDICARE ==
[2019-01-02] MEDS ORDERED: LORAZEPAM 2 MG/ML VIAL IV ONE (21:36)
[2019-01-02 22:01] LABS: BASO % 0.2 % (0-6); EOS % 3.5 % (0-6); GRAN % 71.4 % (47-80); LYMPH % 15.4 % (16-45); MEAN CELL VOLUME 91.8 fl (81-97); MEAN CORPUSCULAR HGB CONC 36.1 g/dl (32-36); MEAN PLATELET VOLUME 9.3 fl (7.4-10.4); MONO % 9.5 % (0-9); PLATELET COUNT 277 K/uL (130-400); RED BLOOD COUNT 3.92 M/uL (4.40-5.70); RED CELL DISTRIBUTION WIDTH 12.4 % (11.5-14.5); WHITE BLOOD COUNT W/O DIFF 11.5 K/uL (4.2-12.2)
[2019-01-02 22:06] LABS: MEAN CORPUSCULAR HEMOGLOBIN 33.1 pg (27-33)
[2019-01-02 22:13] LABS: BLOOD UREA NITROGEN 11 mg/dL (8-23); CREATININE 0.5 mg/dL (0.7-1.2); EST GLOMERULAR FILTRATION RATE > 60 mL/min
[2019-01-02 22:16] LABS: GLUCOSE,RANDOM 94 mg/dL (74-109)
--- NOTE | 2019-01-02 22:55 | Emergency Department Record ---
Anxiety - General Chief Complaint: Anxiety Stated Complaint: PANIC ATTACK,SYED Time Seen by Provider: 01/02/19 21:28 Source: Patient Mode of Arrival: Wheelchair Limitations: No limitations - History of Present Illness Initial Comments: pt is here for anxiety, panic. he has been here for this previously. he has 2 fxd ribs. he recently ran out of [place]. he has no other symptoms. MD Complaint: Anxiety, Shortness of breath Onset/Timin -: Hour(s) Symptoms: Extremity numbness/tingling, Muscle cramps Place: Home Previous History of Same: Yes Severity: Moderate Quality: Intermittant, Similar to prior episodes Provoking factors: Emotional stress, Other Improves With: Medication, Deep breaths, Rest Worsens With: Thinking about event Associated symptoms: Denies other symptoms - Related Data Home Medications: Previous Rx's Medication Instructions Recorded Albuterol Sulfate [Ventolin Hfa] 1 inh INH ASDIR PRN #1 inhaler 12/26/18 Alprazolam [Xanax] 1 mg PO Q6HR PRN #7 tab 12/26/18 Cefdinir [Omnicef] 300 mg PO BID 5 Days #10 cap 12/26/18 Hydrochlorothiazide [Hctz] 25 mg PO DAILY tablet 12/26/18 Ipratropium/Albuterol [Duoneb] 3 ml INH [id number].[id number] ampul.neb 12/26/18 Prednisone [Prednisone 20Mg] 40 mg PO DAILYWM 3 Days #3 tab 12/26/18 Lorazepam [Ativan] 1 mg PO Q8HR #7 tablet 01/02/19 Allergies/Adverse Reactions: Allergies Allergy/AdvReac Type Severity Reaction Status Date / Time No Known Drug Allergies Allergy Verified 11/09/18 02:32 Travel Screening - Travel/Exposure Within Last 30 Days Have you traveled within the last 30 days?: No - Travel Symptoms Symptom Screening: None Review of Systems Reviewed: No additional complaints except as noted below Constitutional: Reports: As per HPI. Denies: Chills, Fever, Malaise, Night sweats, Weakness, Weight change Eyes: Reports: As per HPI. Denies: Eye discharge, Eye pain, Photophobia, Vision change ENT: Reports: As per HPI. Denies: Congestion, Dental pain, Ear pain, Epistaxis , Hearing loss, Throat pain Respiratory: Reports: As per HPI. Denies: Cough, Dyspnea, Hemoptysis, Stridor, Wheezes Cardiovascular: Reports: As per HPI. Denies: Arrhythmia, Chest pain, Dyspnea on exertion, Edema, Murmurs, Orthopnea, Palpitations, Paroxysmal nocturnal dyspnea, Rheumatic Fever, Syncope Endocrine: Reports: As per HPI. Denies: Fatigue, Heat or cold intolerance, Polydipsia, Polyuria Gastrointestinal: Reports: As per HPI. Denies: Abdominal pain, Constipation, Diarrhea, Hematemesis, Hematochezia, Melena, Nausea, Vomiting Genitourinary: Reports: As per HPI. Denies: Dysuria, Frequency, Hematuria, Incontinence, Retention, Testicular pain, Testicular mass, Urgency Musculoskeletal: Reports: As per HPI. Denies: Arthralgia, Back pain, Gout, Joint swelling, Myalgia, Neck pain Skin: Reports: As per HPI. Denies: Bruising, Change in color, Change in hair/ nails, Lesions, Pruritus, Rash Neurological: Reports: As per HPI. Denies: Abnormal gait, Confusion, Headache, Numbness, Paresthesias, Seizure, Tingling, Tremors, Vertigo, Weakness Psychiatric: Reports: As per HPI, Anxiety. Denies: Auditory hallucinations, Depression, Homicidal thoughts, Suicidal thoughts, Visual hallucinations Hematological/Lymphatic: Reports: As per HPI. Denies: Anemia, Blood Clots, Easy bleeding, Easy bruising, Swollen glands Past Medical History - SOCIAL HISTORY Smoking Status: Former smoker Alcohol Use: None Drug Use: Heavy Drug Use Detail:: Marijuana - RESPIRATORY Hx Respiratory Disorders: Yes Hx COPD: Yes Hx Pneumonia: Yes (yearly) Comment:: spontaneous pneumo - CARDIOVASCULAR Hx Cardio Disorders: Yes Hx Hypertension: Yes - NEURO Hx Neuro Disorders: No - GI Hx GI Disorders: No - Hx Genitourinary Disorders: No - ENDOCRINE Hx Endocrine Disorders: No - MUSCULOSKELETAL Hx Musculoskeletal Disorders: Yes Hx Arthritis: Yes - PSYCH Hx Psych Problems: Yes Hx Depression: Yes - HEMATOLOGY/ONCOLOGY Hx Hematology/Oncology Disorders: No Family Medical History Any Significant Family History?: Yes Hx Anxiety: Brother/Sister Hx Depression: Brother/Sister Hx Diabetes: Brother/Sister Hx Heart Disease: Mother, Grandparents Hx Resp Disorders: Father Physical Exam - General General Appearance: Alert, Oriented x3, Cooperative, Mild distress - Head Head exam: Normal inspection - Eye Eye exam: Normal appearance, PERRL, EOMI Pupils: Normal accommodation - ENT ENT exam: Normal exam, Mucous membranes moist, Normal external ear exam, Normal orophraynx Ear exam: Normal external inspection. negative: External canal tenderness Nasal Exam: Normal inspection. negative: Discharge, Sinus tenderness Mouth exam: Normal external inspection, Tongue normal Teeth exam: Normal inspection. negative: Dental caries Throat exam: Normal inspection. negative: Tonsillar erythema, Tonsillar exudate - Neck Neck exam: Normal inspection, Full ROM. negative: Tenderness - Respiratory Respiratory exam: Normal lung sounds bilaterally. negative: Respiratory distress - Cardiovascular Cardiovascular Exam: Regular rate, Normal rhythm, Normal heart sounds - GI/Abdominal GI/Abdominal exam: Soft, Normal bowel sounds. negative: Tenderness - Rectal Rectal exam: Deferred - exam: Deferred - Extremities Extremities exam: Normal inspection, Full ROM, Normal capillary refill. negative: Tenderness - Back Back exam: Reports: Normal inspection, Full ROM. 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 cxr unchanged. sodium is at same level Medical Decision Making - Lab Data Result diagrams: 01/02/19 21:50 01/02/19 21:50 Lab Results 01/02/19 01/02/19 Range/Units 21:50 21:50 WBC 11.5 (4.2-12.2) K/uL RBC 3.92 L (4.40-5.70) M/uL Hgb 13.0 L (14.0-18.0) gm/dl Hct 36.0 L (42.0-52.0) % MCV 91.8 (81-97) fl MCH 33.1 H (27-33) pg MCHC 36.1 H (32-36) g/dl RDW 12.4 (11.5-14.5) % Plt Count 277 (130-400) K/uL MPV 9.3 (7.4-10.4) fl Gran % 71.4 (47-80) % Lymphocytes % 15.4 L (16-45) % Monocytes % 9.5 H (0-9) % Eosinophils % 3.5 (0-6) % Basophils % 0.2 (0-6) % Sodium 126 L (136-145) mmol/L Potassium 3.6 (3.4-4.5) mmol/L Chloride 86 L (98-107) mmol/L Carbon Dioxide 25.0 (22-29) mmol/L Anion Gap 15.0 (7-16) BUN 11 (8-23) mg/dL Creatinine 0.5 L (0.7-1.2) mg/dL Estimated GFR > 60 mL/min Random Glucose 94 (74-109) mg/dL Calcium 8.9 (8.8-10.2) mg/dL Disposition Disposition: Discharge Clinical Impression: Anxiety, Hyponatremia Disposition: Home, Self-Care Condition: (1) Good Instructions: Anxiety (ED), Panic Attack (ED), Hyponatremia (ED) Additional Instructions: follow up with family doctor tomorrow. return sooner if worse. have sodium level rechecked Prescriptions: Lorazepam [Ativan] 1 mg PO Q8HR #7 tablet Quality - Quality Measures Quality Measures: N/A - Blood Pressure Screening Does Patient Have Any of the Following: Active Dx of HTN Blood Pressure Classification: Hypertensive Reading Systolic Measurement: 184 Diastolic Measurement: 96 Screening for High Blood Pressure: Patient Exclusion, Hx of HTN [G9744]
--- NOTE | 2019-01-04 12:56 | RADIOLOGY REPORT ---
DATE: 01/02/2019 at 2159 hours. EXAM: TWO-VIEW CHEST. HISTORY: SHORTNESS OF BREATH. RECENT RIGHT RIB FRACTURES. TECHNIQUE: PA and lateral upright views of the chest were obtained. COMPARISON: Previous chest x-ray dated 12/31/2018. Previous chest CT dated . FINDINGS: The heart is normal in size. The mediastinum and pulmonary vasculature are normal. Bullous emphysematous changes are present within both lungs. There is a persistent small right pleural effusion with associated right basilar atelectasis. There may be a tiny left pleural effusion as well. There are old, healed fractures involving the left ribs. The right posterior lower rib fractures appear similar. No new fractures are identified. There has been previous resection of the posterior aspect of the right fifth rib. There are no new intrathoracic findings. There is no pneumothorax or acute pulmonary infiltrate. IMPRESSION: 1. STABLE CHEST WITH NO NEW ABNORMALITIES. 2. PERSISTENT SMALL RIGHT PLEURAL EFFUSION WITH ASSOCIATED BASILAR ATELECTASIS. A TINY LEFT PLEURAL EFFUSION MAY ALSO BE PRESENT. 3. STABLE BILATERAL RIB FRACTURES. 4. BULLOUS EMPHYSEMATOUS CHANGES. Job Number: [id number] [facility]
== END 2019-01-02 23:04 | disposition home or self-care (01) ==
LOC: ER 20:30
DX: E87.1 Hypo-osmolality and hyponatremia (principal); F41.0 Panic disorder [episodic paroxysmal anxiety]; R06.00 Dyspnea, unspecified; R20.0 Anesthesia of skin; R25.2 Cramp and spasm; I10 Essential (primary) hypertension; J44.9 Chronic obstructive pulmonary disease, unspecified; F17.210 Nicotine dependence, cigarettes, uncomplicated
CPT/HCPCS: 99284 ×2; 96374; 85025; 80048; 71046; J2060

== ENCOUNTER 2019-01-13 01:09 | Observation (INO) | payer MEDICARE ==
[2019-01-13] MEDS ORDERED: IPRATROPIUM/ALBUTEROL (0.5MG/3MG) NEB INH ONE (01:16)
[2019-01-13] MEDS ORDERED: METHYLPREDNISOLONE PF 125MG/VIAL IVP ONE (01:16)
[2019-01-13] MEDS ORDERED: LORAZEPAM 2 MG/ML VIAL IV ONE ×2 (01:16→01:40)
[2019-01-13] MEDS ORDERED: ALBUTEROL (0.5% CONCENTRATED) 2.5 MG/0.5 ML VIAL.NEB INH ONE (01:19)
[2019-01-13 01:35] LABS: BASO % 0.4 % (0-6); EOS % 4.3 % (0-6); GRAN % 47.1 % (47-80); HEMATOCRIT 41.7 % (42.0-52.0); HEMOGLOBIN 14.9 gm/dl (14.0-18.0); LYMPH % 39.5 % (16-45); MEAN CELL VOLUME 93.1 fl (81-97); MEAN CORPUSCULAR HEMOGLOBIN 33.3 pg (27-33); MEAN CORPUSCULAR HGB CONC 35.7 g/dl (32-36); MEAN PLATELET VOLUME 9.4 fl (7.4-10.4); MONO % 8.7 % (0-9); PLATELET COUNT 341 K/uL (130-400); RED BLOOD COUNT 4.48 M/uL (4.40-5.70); RED CELL DISTRIBUTION WIDTH 12.4 % (11.5-14.5); WHITE BLOOD COUNT W/O DIFF 13.3 K/uL (4.2-12.2)
[2019-01-13 01:49] LABS: BLOOD UREA NITROGEN 16 mg/dL (8-23); CREATININE 0.9 mg/dL (0.7-1.2); EST GLOMERULAR FILTRATION RATE > 60 mL/min
[2019-01-13 01:50] LABS: TOTAL PROTEIN 7.1 g/dL (6.6-8.7)
[2019-01-13 01:52] LABS: GLUCOSE,RANDOM 135 mg/dL (74-109)
[2019-01-13 01:55] LABS: ALB/GLOB RATIO 1.8 (1.1-1.8); ALBUMIN 4.6 g/dL (4.0-5.0); ALKALINE PHOSPHATASE 87 U/L (40-129); ALT/SGPT 16 U/L (<41); AST/SGOT 17 U/L (10.0-50.0)
--- NOTE | 2019-01-13 01:55 | Emergency Department Record ---
History of Present Illness - General Chief Complaint: Difficulty Breathing Stated Complaint: SYED Time Seen by Provider: 01/13/19 01:12 Source: Patient, Family Mode of Arrival: Wheelchair Limitations: No limitations - History of Present Illness Initial Comments: The patient is here due to worsening SOB over the last few hours. The patient has a long hx of COPD and recently has been coming to the ER due to anxiety with his SOB. Tonight he felt the SOB coming on and then it became much worse due to the anxiety. He denies any recent fever, CP, or colored sputum. The patient has been here twice in the last 2 weeks due to anxiety and did see his PCP 3 days ago who started him on Vistaril for anxiety in addition to the Ativan. MD Complaint: Anxiety, "Asthma attack", Shortness of breath Onset/Timin -: Hour(s) Improves With: Medication, Other Worsens With: Other Known History Of: COPD, Other Associated Symptoms: Denies other symptoms Treatments Prior to Arrival: Bronchodilator - Related Data Allergies Allergy/AdvReac Type Severity Reaction Status Date / Time No Known Drug Allergies Allergy Unverified 01/09/19 14:52 Travel Screening - Travel/Exposure Within Last 30 Days Have you traveled within the last 30 days?: No - Travel Symptoms Symptom Screening: None Review of Systems Constitutional: Reports: Malaise. Denies: Chills, Fever Eyes: Denies: Eye discharge ENT: Denies: Congestion Respiratory: Reports: Cough, Dyspnea Cardiovascular: Reports: Dyspnea on exertion. Denies: Arrhythmia, Chest pain Endocrine: Denies: Fatigue Gastrointestinal: Denies: Diarrhea Genitourinary: Denies: Dysuria Musculoskeletal: Denies: Arthralgia Skin: Denies: Bruising Past Medical History - SOCIAL HISTORY Smoking Status: Former smoker - RESPIRATORY Hx Respiratory Disorders: Yes Hx COPD: Yes Hx Pneumonia: Yes (yearly) Comment:: spontaneous pneumo - CARDIOVASCULAR Hx Cardio Disorders: Yes Hx Hypertension: Yes - NEURO Hx Neuro Disorders: No - GI Hx GI Disorders: No - Hx Genitourinary Disorders: No - ENDOCRINE Hx Endocrine Disorders: No - MUSCULOSKELETAL Hx Musculoskeletal Disorders: Yes Hx Arthritis: Yes - PSYCH Hx Psych Problems: Yes Hx Depression: Yes - HEMATOLOGY/ONCOLOGY Hx Hematology/Oncology Disorders: No Family Medical History Any Significant Family History?: Yes Hx Anxiety: Brother/Sister Hx Depression: Brother/Sister Hx Diabetes: Brother/Sister Hx Heart Disease: Mother, Grandparents Hx Resp Disorders: Father Physical Exam - General General Appearance: Alert, Oriented x3, Cooperative, Moderate distress (due to SYED.) - Head Head exam: Atraumatic, Normocephalic - Eye Eye exam: Normal appearance, PERRL - ENT Throat exam: Normal inspection. negative: Tonsillar erythema, Tonsillar exudate - Neck Neck exam: Normal inspection, Full ROM. negative: Tenderness - Respiratory Respiratory exam: Decreased breath sounds, Respiratory distress (mild. Most likely due to anxiety.). negative: Normal lung sounds bilaterally, Rales, Rhonchi, Stridor, Wheezes - Cardiovascular Cardiovascular Exam: Regular rate, Normal rhythm, Normal heart sounds - GI/Abdominal GI/Abdominal exam: Soft, Normal bowel sounds. negative: Tenderness - Extremities Extremities exam: Normal inspection, Full ROM, Normal capillary refill. negative: Tenderness - Neurological Neurological exam: Alert, Normal gait. 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 He did receive some Ativan in addition to the inhaller, steroids, and BIpap. The patient now appears back to normal and is breathing normally with a normal HR and RR. 01/13/19 01:55 Reevaluation #2: The patient is doing much better at this time. He is completely back to normal with no coughing, SOB, or SYED. We did stop his Bipap after 30 minutes and he is resting comfortably and speaking in full sentences. 01/13/19 02:07 Reevaluation #3: The patient is able to get up and walk but is mildly dyspneic. We did do an ambulatory biox and after walking the patient's oxygen saturation was only to the mid 800's. He slowly did come up to the 90's but was mildly winded. Due to that fact we will admit the patient overnight for COPD. 01/13/19 02:52 Medical Decision Making - Data Complexity MDM Data: Labs Ordered and/or Reviewed, X-Ray Ordered and/or Reviewed - Lab Data Result diagrams: 01/13/19 01:15 01/13/19 01:15 Lab Results 01/13/19 01/13/19 Range/Units 01:15 01:15 WBC 13.3 H (4.2-12.2) K/uL RBC 4.48 (4.40-5.70) M/uL Hgb 14.9 (14.0-18.0) gm/dl Hct 41.7 L (42.0-52.0) % MCV 93.1 (81-97) fl MCH 33.3 H (27-33) pg MCHC 35.7 (32-36) g/dl RDW 12.4 (11.5-14.5) % Plt Count 341 (130-400) K/uL MPV 9.4 (7.4-10.4) fl Gran % 47.1 (47-80) % Lymphocytes % 39.5 (16-45) % Monocytes % 8.7 (0-9) % Eosinophils % 4.3 (0-6) % Basophils % 0.4 (0-6) % Sodium 129 L (136-145) mmol/L Potassium 4.1 (3.4-4.5) mmol/L Chloride 87 L (98-107) mmol/L Carbon Dioxide 27.0 (22-29) mmol/L Anion Gap 15.0 (7-16) BUN 16 (8-23) mg/dL Creatinine 0.9 (0.7-1.2) mg/dL Estimated GFR > 60 mL/min Calcium 9.3 (8.8-10.2) mg/dL Total Bilirubin 0.50 (0.2-1.0) mg/dL Total Protein 7.1 (6.6-8.7) g/dL - Radiology Data Radiology results: Image reviewed -: Radiology Exam Interpreted by Myself (CXR: Severe COPD but no change from old. Neg for acute changes.) Disposition Disposition: Admit Clinical Impression: COPD (chronic obstructive pulmonary disease) Qualifiers: COPD type: unspecified COPD Qualified Code(s): J44.9 - Chronic obstructive pulmonary disease, unspecified Disposition: Still a Patient at [facility] Decision to Admit: Admit from ER Decision to Admit Date: 01/13/19 Decision to Admit Time: 02:54 Accepting Physician: Monserrat Time Discussed w/Accepting Physician: 02:54 Condition: (2) Stable Forms: Patient Portal Access Time of Disposition: :54 Quality - Quality Measures Quality Measures: N/A - Blood Pressure Screening View Details: Yes Does Patient Have Any of the Following: No Blood Pressure Classification: Pre-Hypertensive BP Reading Systolic Measurement: 125 Diastolic Measurement: 68 Screening for High Blood Pressure: < Pre-Hypertensive BP, F/U Documented > [ G8950] Pre-Hypertensive Follow-up Interventions: Referral to alternative/primary care provider.
[2019-01-13] MEDS ORDERED: ALBUTEROL SULFATE (0.083%) 2.5 MG/3 ML NEB INH ONE (02:54)
[2019-01-13] MEDS ORDERED: BACLOFEN 10 MG TABLET PO PRN (03:56)
[2019-01-13] MEDS ORDERED: ACETAMINOPHEN 325 MG TAB PO PRN (03:56)
[2019-01-13] MEDS ORDERED: HYDROCODONE/APAP 5/325MG TABLET PO PRN (03:56)
[2019-01-13] MEDS ORDERED: LORAZEPAM 0.5 MG TABLET PO PRN (03:56)
[2019-01-13] MEDS: IPRATROPIUM/ALBUTEROL (0.5MG/3MG) NEB INH SCH ×3 (06:24→13:50)
[2019-01-13 06:26] LABS: HEMATOCRIT 36.2 % (42.0-52.0); HEMOGLOBIN 12.8 gm/dl (14.0-18.0); MEAN CELL VOLUME 92.8 fl (81-97); MEAN CORPUSCULAR HEMOGLOBIN 32.8 pg (27-33); MEAN CORPUSCULAR HGB CONC 35.4 g/dl (32-36); MEAN PLATELET VOLUME 9.1 fl (7.4-10.4); PLATELET COUNT 223 K/uL (130-400); RED CELL DISTRIBUTION WIDTH 11.9 % (11.5-14.5); WHITE BLOOD COUNT W/O DIFF 7.1 K/uL (4.2-12.2)
[2019-01-13 06:43] LABS: ALB/GLOB RATIO 1.8 (1.1-1.8); ALKALINE PHOSPHATASE 67 U/L (40-129); ALT/SGPT 13 U/L (<41); AST/SGOT 12 U/L (10.0-50.0); BLOOD UREA NITROGEN 18 mg/dL (8-23); CREATININE 0.8 mg/dL (0.7-1.2); EST GLOMERULAR FILTRATION RATE > 60 mL/min; GLUCOSE,RANDOM 137 mg/dL (74-109); TOTAL PROTEIN 6.2 g/dL (6.6-8.7)
[2019-01-13] MEDS: HYDROXYZINE PAMOATE 25 MG CAPSULE PO SCH ×2 (09:56→15:55)
[2019-01-13] MEDS ORDERED: METHYLPREDNISOLONE PF 125MG/VIAL IVP SCH (10:00)
[2019-01-13] MEDS ORDERED: BUSPIRONE 5 MG TABLET PO SCH (10:00)
[2019-01-13] MEDS ORDERED: ATORVASTATIN 20 MG TABLET PO SCH (10:00)
[2019-01-13] MEDS ORDERED: HYDROCHLOROTHIAZIDE 25 MG TABLET PO SCH (10:00)
[2019-01-13] MEDS ORDERED: UMECLIDINIUM BROMIDE (INCRUSE) 62.5MCG IH SCH (10:00)
[2019-01-13] MEDS ORDERED: CLOPIDOGREL 75MG TABLET PO SCH (10:00)
[2019-01-13] MEDS ORDERED: CARVEDILOL 3.125 MG TABLET PO SCH (10:00)
[2019-01-13] MEDS ORDERED: LISINOPRIL 20 MG TABLET PO SCH ×2 (10:00)
[2019-01-13] MEDS ORDERED: TAMSULOSIN HCL 0.4 MG CAP.ER.24H PO SCH (10:00)
[2019-01-13] MEDS ORDERED: ALPRAZOLAM 0.25 MG TABLET PO PRN (13:01)
--- NOTE | 2019-01-13 14:09 | History & Physical ---
History of Present Illness - Date of Service Date of Service for History & Physical: 01/13/19 - History of Present Illness Admitting Diagnosis: 1. Acute COPD Exacerbation. History of Present Illness: The patient presented to the ED with c/o worsening SOB over the last few hours. The patient has a long hx of COPD and recently has been coming to the ER due to anxiety with his SOB. Tonight he felt the SOB coming on and then it became much worse due to the anxiety. He denies any recent fever, CP, or colored sputum. The patient has been here twice in the last 2 weeks due to anxiety and did see his PCP 3 days ago who started him on Vistaril for anxiety in addition to the Ativan. In the ED, his vitals were BP 208/128, HR 134, RR 42, 96% on room air, T 97.6F. Labs: WBC 13.3, CXR: no acute findings, chronic COPD findings. Per Dr. Guan: The patient was initially placed on BIpap due to the SYED but due to mainly anxiety. He did receive some Ativan in addition to the inhaler, steroids , and BIpap. The patient now appears back to normal and is breathing normally with a normal HR and RR. Pt. still became dyspnic with ambulation- mid 80s pulse ox, so he was admitted for observation for COPD exacerbation. 01/13/19: Pt. is resting in bed. He is now 100% on room air. He states that his symptoms are much improved. He verbalized that his anxiety seems to worsen his symptoms- and he states he is worried about becoming addicted to ativan and xanax. He states he recently started vistaril, and it is helpful, but makes him very tired and have a dry mouth. WBC this am was 7.1. He denies pain. Will plan to change from ativan to xanax for anxiety. If symptoms and VS remain controlled today, will d/c home this evening. PCP: Dr. Gillespie. Travel Screening - Travel/Exposure Within Last 30 Days Have you traveled within the last 30 days?: No - Travel/Exposure Within Last Year Have you traveled outside the [place] in the last year?: No - Additonal Travel Details Have you been exposed to anyone with a communicable illness?: No - Travel Symptoms Symptom Screening: None Review of Systems Constitutional: Reports: Malaise. Denies: Chills, Fever Eyes: Denies: Eye discharge ENT: Denies: Congestion Respiratory: Reports: Cough, Dyspnea Cardiovascular: Reports: Dyspnea on exertion. Denies: Arrhythmia, Chest pain Endocrine: Denies: Fatigue Gastrointestinal: Denies: Diarrhea Genitourinary: Denies: Dysuria Musculoskeletal: Denies: Arthralgia Skin: Denies: Bruising Past Medical History - SOCIAL HISTORY Smoking Status: Former smoker Alcohol Use: None Drug Use: Occasional Drug Use Detail:: Marijuana - RESPIRATORY Hx Respiratory Disorders: Yes Hx Bronchitis: Yes Hx COPD: Yes Hx Dyspnea: Yes Hx Pneumonia: Yes (yearly) Comment:: spontaneous pneumo - CARDIOVASCULAR Hx Cardio Disorders: Yes Hx Hypertension: Yes - NEURO Hx Neuro Disorders: No - GI Hx GI Disorders: No - Hx Genitourinary Disorders: No - ENDOCRINE Hx Endocrine Disorders: No - MUSCULOSKELETAL Hx Musculoskeletal Disorders: Yes Hx Arthritis: Yes - PSYCH Hx Psych Problems: Yes Hx Anxiety: Yes Hx Depression: Yes - HEMATOLOGY/ONCOLOGY Hx Hematology/Oncology Disorders: No Family Medical History Any Significant Family History?: Yes Hx Anxiety: Brother/Sister Hx Depression: Brother/Sister Hx Diabetes: Brother/Sister Hx Heart Disease: Mother, Grandparents Hx HTN: Mother, Grandparents Hx Resp Disorders: Father H&P Meds/Allergies - Allergies Allergies: Allergies Allergy/AdvReac Type Severity Reaction Status Date / Time No Known Drug Allergies Allergy Unverified 01/09/19 14:52 - Active Medications Active Medications: Current Medications Acetaminophen (Tylenol 325mg) 650 mg PO Q6H PRN PRN Reason: PAIN - MILD(1-4)/FEVER Hydrocodone Bitart/Acetaminophen ([place] 5mg/325mg) 1 each PO TID PRN PRN Reason: PAIN - MILD (1-4) Last Admin: 01/13/19 13:09 Dose: 1 each Albuterol/Ipratropium (Duoneb) 3 ml INH RESP.Q4H.[facility] Last Admin: 01/13/19 10:05 Dose: 3 ml Alprazolam (Xanax) 0.25 mg PO Q8H PRN PRN Reason: ANXIETY Last Admin: 01/13/19 13:10 Dose: 0.25 mg Atorvastatin Calcium (Lipitor) 20 mg PO DAILY [facility] Last Admin: 01/13/19 09:55 Dose: 20 mg Baclofen (Lioresal) 10 mg PO BID PRN PRN Reason: SPASMS Buspirone HCl (Buspar) 7.5 mg PO BID [facility] Last Admin: 01/13/19 09:55 Dose: 7.5 mg Carvedilol (Coreg) 3.125 mg PO BID [facility] Last Admin: 01/13/19 09:56 Dose: 3.125 mg Clopidogrel Bisulfate (Plavix) 75 mg PO DAILY [facility] Last Admin: 01/13/19 09:54 Dose: 75 mg Hydrochlorothiazide (Hctz 25mg) 25 mg PO DAILY [facility] Last Admin: 01/13/19 09:54 Dose: 25 mg Hydroxyzine Pamoate (Vistaril) 50 mg PO TID [facility] Last Admin: 01/13/19 09:56 Dose: 50 mg Lisinopril (Zestril) 20 mg PO DAILY [facility] Last Admin: 01/13/19 09:56 Dose: 20 mg Lisinopril (Zestril) 20 mg PO DAILY [facility] Last Admin: 01/13/19 09:56 Dose: 20 mg Methylprednisolone Sodium Succinate (Solu-Medrol) 60 mg IVP DAILY [facility] Last Admin: 01/13/19 10:00 Dose: 60 mg Tamsulosin HCl (Flomax) 0.4 mg PO DAILY [facility] Last Admin: 01/13/19 09:55 Dose: 0.4 mg Trazodone HCl (Desyrel) 100 mg PO QHS [facility] Physical Exam - Vital Signs Vital Signs: Vital Signs - Last 24 Hrs Temp Pulse Pulse Pulse Resp BP Pulse Ox 01/13/19 10:05 103 H 18 97 01/13/19 08:17 24 01/13/19 08:00 97.9 F 79 18 141/63 100 01/13/19 06:24 79 16 94 L 01/13/19 04:10 97.6 F 87 20 140/75 99 01/13/19 02:59 78 16 100 01/13/19 02:04 80 24 125/68 95 01/13/19 01:31 90 17 95 01/13/19 01:18 24 144/97 100 01/13/19 01:12 97.6 F 134 H 42 H 208/128 96 - General General Appearance: Alert, Oriented x3, Cooperative, No acute distress Limitations: No limitations - Head Head exam: Atraumatic, Normocephalic - Eye Eye exam: Normal appearance, PERRL - ENT Throat exam: Normal inspection. negative: Tonsillar erythema, Tonsillar exudate - Neck Neck exam: Normal inspection, Full ROM. negative: Tenderness - Respiratory Respiratory exam: Wheezes (in bases). negative: Normal lung sounds bilaterally , Rales, Rhonchi, Stridor - Cardiovascular Cardiovascular Exam: Regular rate, Normal rhythm, Normal heart sounds - GI/Abdominal GI/Abdominal exam: Soft, Normal bowel sounds. negative: Tenderness - Extremities Extremities exam: Normal inspection, Full ROM, Normal capillary refill. negative: Tenderness - Neurological Neurological exam: Alert, Normal gait. negative: Abnormal gait, Motor sensory deficit Results - Labs Result Diagrams: 01/13/19 06:15 01/13/19 06:15 Labs Last 24 Hours: Laboratory Results - last 24 hr 01/13/19 01/13/19 01/13/19 01:15 01:15 06:15 WBC 13.3 H 7.1 RBC 4.48 3.90 L Hgb 14.9 12.8 L Hct 41.7 L 36.2 L MCV 93.1 92.8 MCH 33.3 H 32.8 MCHC 35.7 35.4 RDW 12.4 11.9 Plt Count 341 223 MPV 9.4 9.1 Gran % 47.1 Neutrophils % 92.0 H Lymphocytes % 39.5 Monocytes % 8.7 Eosinophils % 4.3 Not Reportable Basophils % 0.4 Not Reportable Lymphocytes 8.0 L Monocytes 0.0 Sodium 129 L Potassium 4.1 Chloride 87 L Carbon Dioxide 27.0 Anion Gap 15.0 BUN 16 Creatinine 0.9 Estimated GFR > 60 Random Glucose 135 H Calcium 9.3 Total Bilirubin 0.50 AST 17 ALT 16 Alkaline Phosphatase 87 Total Protein 7.1 Albumin 4.6 Globulin 2.5 Albumin/Globulin Ratio 1.8 01/13/19 06:15 WBC RBC Hgb Hct MCV MCH MCHC RDW Plt Count MPV Gran % Neutrophils % Lymphocytes % Monocytes % Eosinophils % Basophils % Lymphocytes Monocytes Sodium 129 L Potassium 4.6 H Chloride 93 L Carbon Dioxide 26.0 Anion Gap 10.0 BUN 18 Creatinine 0.8 Estimated GFR > 60 Random Glucose 137 H Calcium 9.2 Total Bilirubin 0.40 AST 12 ALT 13 Alkaline Phosphatase 67 Total Protein 6.2 L Albumin 4.0 Globulin 2.2 Albumin/Globulin Ratio 1.8 - Imaging and Cardiology Chest x-ray Status: Image reviewed (no acute findings) VTE H&P Assessment - Risk for VTE Risk for VTE: Yes Risk Level: Low Risk Assessment Date: 01/13/19 Risk Assessment Time: 14:10 VTE Orders Placed or Will Be Placed: Yes Plan - Detailed Diagnosis and Plan (1) COPD (chronic obstructive pulmonary disease) Current Visit: Yes Status: Acute Qualifiers: COPD type: unspecified COPD Qualified Code(s): J44.9 - Chronic obstructive pulmonary disease, unspecified Base Code: J44.9 - CHRONIC OBSTRUCTIVE PULMONARY DISEASE, UNSPECIFIED Comment : 01/13/19: - CXR negative for acute change, demonstrated chronic COPD changes - sats maintained >95% on RA, oxygen PRN, patient not requiring any supplemental oxygen. - duonebs Q4H, Breo QD, changing to Prednisone 40mg QD (2) Anxiety Current Visit: No Status: Acute Base Code: F41.9 - ANXIETY DISORDER, UNSPECIFIED Comment: 01/13/19: -continue home med- vistaril 50mg tid -xanax 0.25mg q8h prn (3) At risk for venous thromboembolism (VTE) Current Visit: No Status: Acute Base Code: Z91.89 - OTH PERSONAL RISK FACTORS, NOT ELSEWHERE CLASSIFIED Comment: 01/13/19 -Nursing to encourage ambulation. (4) Full code status Current Visit: No Status: Acute Base Code: Z78.9 - OTHER SPECIFIED HEALTH STATUS Comment: 01/13/19: -pt. is a full code
--- NOTE | 2019-01-13 14:50 | Discharge Summary ---
Providers Discharge Summary Date: 01/13/19 Date of admission: 01/13/19 03:32 Expected Date of Discharge: 01/13/19 Attending physician: RAHUL GERMAN Primary care physician: RAHUL GERMAN Physical Exam - Vital Signs Vital Signs: Vital Signs - Last 24 Hrs Temp Pulse Pulse Pulse Resp BP Pulse Ox 01/13/19 13:50 79 18 99 01/13/19 10:05 103 H 18 97 01/13/19 08:17 24 01/13/19 08:00 97.9 F 79 18 141/63 100 01/13/19 06:24 79 16 94 L 01/13/19 04:10 97.6 F 87 20 140/75 99 01/13/19 02:59 78 16 100 01/13/19 02:04 80 24 125/68 95 01/13/19 01:31 90 17 95 01/13/19 01:18 24 144/97 100 01/13/19 01:12 97.6 F 134 H 42 H 208/128 96 - General General Appearance: Alert, Oriented x3, Cooperative, No acute distress Limitations: No limitations - Head Head exam: Atraumatic, Normocephalic - Eye Eye exam: Normal appearance, PERRL - ENT Throat exam: Normal inspection. negative: Tonsillar erythema, Tonsillar exudate - Neck Neck exam: Normal inspection, Full ROM. negative: Tenderness - Respiratory Respiratory exam: Wheezes (in bases). negative: Normal lung sounds bilaterally , Rales, Rhonchi, Stridor - Cardiovascular Cardiovascular Exam: Regular rate, Normal rhythm, Normal heart sounds - GI/Abdominal GI/Abdominal exam: Soft, Normal bowel sounds. negative: Tenderness - Extremities Extremities exam: Normal inspection, Full ROM, Normal capillary refill. negative: Tenderness - Neurological Neurological exam: Alert, Normal gait. negative: Abnormal gait, Motor sensory deficit - Psychiatric Psychiatric exam: Anxious Hospitalization - Hospitalization Admission Diagnosis: 1. Acute COPD Exacerbation. - Problem List/Discharge Diagnosis (1) COPD (chronic obstructive pulmonary disease) Current Visit: Yes Status: Acute Discharge Diagnosis: COPD type: unspecified COPD Qualified Code(s): J44.9 - Chronic obstructive pulmonary disease, unspecified Base Code: J44.9 - CHRONIC OBSTRUCTIVE PULMONARY DISEASE, UNSPECIFIED Comment : 01/13/19: - CXR negative for acute change, demonstrated chronic COPD changes - sats maintained >95% on RA, oxygen PRN, patient not requiring any supplemental oxygen. - duonebs Q4H, Breo QD, changing to Prednisone 40mg QD (2) Anxiety Current Visit: No Status: Acute Base Code: F41.9 - ANXIETY DISORDER, UNSPECIFIED Comment: 01/13/19: -continue home med- vistaril 50mg tid -xanax 0.25mg q8h prn (3) At risk for venous thromboembolism (VTE) Current Visit: No Status: Acute Base Code: Z91.89 - OTH PERSONAL RISK FACTORS, NOT ELSEWHERE CLASSIFIED Comment: 01/13/19 -Nursing to encourage ambulation. (4) Full code status Current Visit: No Status: Acute Base Code: Z78.9 - OTHER SPECIFIED HEALTH STATUS Comment: 01/13/19: -pt. is a full code - Hospitalization Course Disposition: Home, Self-Care Hospital Course: The patient presented to the ED with c/o worsening SOB over the last few hours. The patient has a long hx of COPD and recently has been coming to the ER due to anxiety with his SOB. Tonight he felt the SOB coming on and then it became much worse due to the anxiety. He denies any recent fever, CP, or colored sputum. The patient has been here twice in the last 2 weeks due to anxiety and did see his PCP 3 days ago who started him on Vistaril for anxiety in addition to the Ativan. In the ED, his vitals were BP 208/128, HR 134, RR 42, 96% on room air, T 97.6F. Labs: WBC 13.3, CXR: no acute findings, chronic COPD findings. Per Dr. Guan: The patient was initially placed on BIpap due to the SYED but due to mainly anxiety. He did receive some Ativan in addition to the inhaler, steroids , and BIpap. The patient now appears back to normal and is breathing normally with a normal HR and RR. Pt. still became dyspnic with ambulation- mid 80s pulse ox, so he was admitted for observation for COPD exacerbation. 01/13/19: Pt. is resting in bed. He is now 100% on room air. He states that his symptoms are much improved. He verbalized that his anxiety seems to worsen his symptoms- and he states he is worried about becoming addicted to ativan and xanax. He states he recently started vistaril, and it is helpful, but makes him very tired and have a dry mouth. WBC this am was 7.1. He denies pain. Will plan to change from ativan to xanax for anxiety. If symptoms and VS remain controlled today, will d/c home this evening. PCP: Dr. Gillespie. 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 Abnormal Labs: Abnormal Lab Results 01/13/19 01/13/19 01/13/19 Range/Units 01:15 01:15 06:15 WBC 13.3 H (4.2-12.2) K/uL RBC 3.90 L (4.40-5.70) M/uL Hgb 12.8 L (14.0-18.0) gm/dl Hct 41.7 L 36.2 L (42.0-52.0) % MCH 33.3 H (27-33) pg Neutrophils % 92.0 H (47-80) % Lymphocytes 8.0 L (16-45) % Sodium 129 L (136-145) mmol/L Potassium (3.4-4.5) mmol/L Chloride 87 L (98-107) mmol/L Random Glucose 135 H (74-109) mg/dL Total Protein (6.6-8.7) g/dL 01/13/19 Range/Units 06:15 WBC (4.2-12.2) K/uL RBC (4.40-5.70) M/uL Hgb (14.0-18.0) gm/dl Hct (42.0-52.0) % MCH (27-33) pg Neutrophils % (47-80) % Lymphocytes (16-45) % Sodium 129 L (136-145) mmol/L Potassium 4.6 H (3.4-4.5) mmol/L Chloride 93 L (98-107) mmol/L Random Glucose 137 H (74-109) mg/dL Total Protein 6.2 L (6.6-8.7) g/dL Condition at Discharge: (2) Stable Discharge Diagnosis: COPD, anxiety VTE Discharge VTE Reason For No Overlap Therapy: Not Indicated Discharge Medications - Discharge Medications Prescriptions: Alprazolam [Xanax] 0.25 mg PO Q8H PRN #9 tablet PRN Reason: Anxiety Prednisone [Prednisone 20Mg] 40 mg PO DAILYWM #8 tab Home Medications: Ambulatory Orders Budesonide/Formoterol Fumarate [Symbicort 160-4.5 Mcg Inhaler] 2 puff IH BID 30 Days #120 05/11/14 [Last Taken 01/12/19] Trazodone HCl 100 mg PO QHS 90 Days #90 05/11/14 [Last Taken 01/12/19] Carvedilol [Coreg] 3.125 mg PO BID 90 Days #180 09/21/18 [Last Taken 01/12/19] Baclofen 10 mg PO BID PRN 30 Days #60 10/04/18 [Last Taken 01/12/19] Lisinopril 20 mg PO DAILY 90 Days #90 10/04/18 [Last Taken 01/12/19] Lisinopril/Hydrochlorothiazide [Lisinopril-Hctz 20-25 mg Tab] 1 tab PO DAILY 90 Days #90 10/04/18 [Last Taken 01/12/19] Tiotropium [place] [Spiriva Respimat] 2 puff IH DAILY 30 Days #60 11/09/18 [ Last Taken 01/12/19] Clopidogrel Bisulfate [Clopidogrel] 75 mg PO DAILY 90 Days #90 12/12/18 [Last Taken 01/12/19] Hydrocodone/Acetaminophen [Hydrocodone/Acetaminophen 5mg/325mg] 5 mg PO TID PRN 12/24/18 [Last Taken 01/12/19] Atorvastatin Calcium [Lipitor] 20 mg PO DAILY 90 Days #90 tab 01/09/19 [Last Taken 01/12/19] Alprazolam [Xanax] 0.5 mg PO TID PRN #9 tablet 01/13/19 [Last Taken Unknown] Prednisone [Prednisone 20Mg] 40 mg PO DAILYWM #8 tab 01/13/19 [Last Taken Unknown] Discharge Plan - Discharge Instructions Activity at Discharge: Resume Usual Activities As Tolerated Diet at Discharge: Regular Diet Additional Instructions: Follow up with Dr. German within 7-10 days Return to the ED for worsening symptoms, or for any chest pain Quality Measures - Quality Measures Quality Measures: Advance Directives, Coronary Artery Disease: Antiplatelet Therapy, Documentation of Current Medications in Medical Record, Elder Maltreatment Screen and Follow-Up Plan, Screening for High Blood Pressure and F/ U Documented - Current Medications Quality Measure: Measure #130: Documentation of Current Medications Documentation of Current Medications: <Current Medications Documented/Reviewed> [E1907] - Blood Pressure Screening Quality Measure: Screening for High Blood Pressure and Follow-Up Documented Does Patient Have Any of the Following: Active Dx of HTN Blood Pressure Classification: Hypertensive Reading Systolic Measurement: 141 Diastolic Measurement: 63 Screening for High Blood Pressure: Patient Exclusion, Hx of HTN [G9744] - Coronary Artery Disease Quality Measure: Measure #6: Coronary Artery Disease (CAD) Antiplatelet Therapy: <ASA or clopidogrel prescribed> [5566F] - Advance Directives Quality Measure: Measure #47: Care Plan Advance Directives Established: No Advance Directives Information Provided To Patient: No Advance Directives on File: No Living Will: No Power of Medical Equipment Repair Technician: No Advance Care Planning: <Care Plan/Decision Maker Documented; Discussed & Documented> [0673F] - Elder Abuse Suspicion Index Screening: Elder Abuse Suspicion Index Screening Rely on people for bathing, dressing, shopping, banking, etc: No Prevented from getting food, clothes, medication, etc: No Made to feel shamed or threatened by someone: No Forced to sign papers or use money against will: No Feel afraid, touched in ways not wanted or hurt physically: No Poor eye contact, withdrawn, malnourished, cuts or bruises: No Screening Result: Negative result EASI Reference Information: Sharon SURESH, Naila C, Stan D, Roxi M.Development and validation of a tool to assist physicians identification of elder abuse: The Elder Abuse Suspicion Index (EASI ). Journal of Elder Abuse and Neglect, 2008; 20 (3): 276-300. - Elder Maltreatment Screen Quality Measures: Elder Maltreatment Screen and Follow-Up Plan Elder Maltreatment Screen: <Negative, No Follow-Up Plan Required> [G8734]
[2019-01-13] MEDS ORDERED: TRAZODONE 50 MG TABLET PO SCH (22:00)
--- NOTE | 2019-01-14 07:54 | RADIOLOGY REPORT ---
EXAM: CHEST, TWO VIEWS HISTORY: DIFFICULTY BREATHING. NONPRODUCTIVE COUGH. TECHNIQUE: Two views of the chest were obtained. Comparison: Chest radiograph 01/02/19. FINDINGS: The cardiac silhouette is stable in size. The lungs are hyperinflated. Emphysematous changes of the lungs with a large left upper lobe bulla, similar from prior examination likely persistent small right effusion. No visible pneumothorax. No new focal pulmonary opacities. Lower right sided rib fractures are noted and better seen on previous CT. IMPRESSION: 1. NO NEW/ACUTE LUNG FINDINGS. 2. 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 3. LIKELY PERSISTENT SMALL RIGHT EFFUSION. JOB NUMBER: [id number] [facility]
[2019-01-14] MEDS ORDERED: PREDNISONE 20 MG TAB PO SCH (08:00)
== END 2019-01-13 16:34 | disposition home or self-care (01) ==
LOC: ER 01:09 → MEDSURG 03:32
PROVIDERS: ADMIT Internal Medicine; ATTEND Internal Medicine
DX: J44.1 Chronic obstructive pulmonary disease with (acute) exacerbation (principal); F41.9 Anxiety disorder, unspecified; I10 Essential (primary) hypertension; M19.90 Unspecified osteoarthritis, unspecified site; Z87.891 Personal history of nicotine dependence; F12.90 Cannabis use, unspecified, uncomplicated
CPT/HCPCS: 85025; 80053; 85027; 71046; 94640 ×2; 94660; 94760; G0378; J3490; J2060; 96374; 96375; 96376; 99236; 99285; J2930; J7613

== ENCOUNTER 2019-02-05 13:29 | Inpatient (IN) | payer MEDICARE ==
--- NOTE | 2019-02-05 14:17 | Emergency Department Record ---
History of Present Illness - General Chief Complaint: Shortness of breath Stated Complaint: SYED,WEAKNNESS,CANT EAT Time Seen by Provider: 02/05/19 13:31 Source: Patient Mode of Arrival: Ambulatory Limitations: No limitations - History of Present Illness Initial Comments: pt feels increasingly weak. poor historian. he isnt eating and has no energy. weight loss Onset/Timin -: Week(s) Improves With: Nothing Worsens With: Nothing Known History Of: COPD - Related Data Home Oxygen Therapy: No Allergies Allergy/AdvReac Type Severity Reaction Status Date / Time No Known Drug Allergies Allergy Verified 02/05/19 13:38 Travel Screening - Travel/Exposure Within Last 30 Days Have you traveled within the last 30 days?: No Review of Systems Reviewed: No additional complaints except as noted below Constitutional: Reports: As per HPI. Denies: Chills, Fever, Malaise, Night sweats, Weakness, Weight change Eyes: Reports: As per HPI. Denies: Eye discharge, Eye pain, Photophobia, Vision change ENT: Reports: As per HPI. Denies: Congestion, Dental pain, Ear pain, Epistaxis, Hearing loss, Throat pain Respiratory: Reports: As per HPI. Denies: Cough, Dyspnea, Hemoptysis, Stridor, Wheezes Cardiovascular: Reports: As per HPI. Denies: Arrhythmia, Chest pain, Dyspnea on exertion, Edema, Murmurs, Orthopnea, Palpitations, Paroxysmal nocturnal dyspnea, Rheumatic Fever, Syncope Endocrine: Reports: As per HPI. Denies: Fatigue, Heat or cold intolerance, Polydipsia, Polyuria Gastrointestinal: Reports: As per HPI. Denies: Abdominal pain, Constipation, Diarrhea, Hematemesis, Hematochezia, Melena, Nausea, Vomiting Genitourinary: Reports: As per HPI. Denies: Dysuria, Frequency, Hematuria, Incontinence, Retention, Testicular pain, Testicular mass, Urgency Musculoskeletal: Reports: As per HPI. Denies: Arthralgia, Back pain, Gout, Joint swelling, Myalgia, Neck pain Skin: Reports: As per HPI. Denies: Bruising, Change in color, Change in hair/nails, Lesions, Pruritus, Rash Neurological: Reports: As per HPI. Denies: Abnormal gait, Confusion, Headache, Numbness, Paresthesias, Seizure, Tingling, Tremors, Vertigo, Weakness Psychiatric: Reports: As per HPI. Denies: Anxiety, Auditory hallucinations, Depression, Homicidal thoughts, Suicidal thoughts, Visual hallucinations Hematological/Lymphatic: Reports: As per HPI. Denies: Anemia, Blood Clots, Easy bleeding, Easy bruising, Swollen glands Past Medical History - SOCIAL HISTORY Smoking Status: Former smoker Alcohol Use: None Drug Use: None - RESPIRATORY Hx Respiratory Disorders: Yes Hx Bronchitis: Yes Hx COPD: Yes Hx Dyspnea: Yes Hx Pneumonia: Yes (yearly) Comment:: spontaneous pneumo - CARDIOVASCULAR Hx Cardio Disorders: Yes Hx Hypertension: Yes Comment:: left carotid artery blockage - NEURO Hx Neuro Disorders: No - GI Hx GI Disorders: No - Hx Genitourinary Disorders: No - ENDOCRINE Hx Endocrine Disorders: No - MUSCULOSKELETAL Hx Musculoskeletal Disorders: Yes Hx Arthritis: Yes - PSYCH Hx Psych Problems: Yes Hx Anxiety: Yes Hx Depression: Yes - HEMATOLOGY/ONCOLOGY Hx Hematology/Oncology Disorders: No Family Medical History Any Significant Family History?: Yes Hx Anxiety: Brother/Sister Hx Depression: Brother/Sister Hx Diabetes: Brother/Sister Hx Heart Disease: Mother, Grandparents Hx HTN: Mother, Grandparents Hx Resp Disorders: Father Physical Exam - General General Appearance: Alert, Oriented x3, Cooperative, Mild distress - Head Head exam: Normal inspection - Eye Eye exam: Normal appearance, PERRL, EOMI Pupils: Normal accommodation - ENT ENT exam: Normal exam, Mucous membranes moist, Normal external ear exam, Normal orophraynx Ear exam: Normal external inspection. negative: External canal tenderness Nasal Exam: Normal inspection. negative: Discharge, Sinus tenderness Mouth exam: Normal external inspection, Tongue normal Teeth exam: Normal inspection. negative: Dental caries Throat exam: Normal inspection. negative: Tonsillar erythema, Tonsillar exudate - Neck Neck exam: Normal inspection, Full ROM. negative: Tenderness - Respiratory Respiratory exam: Normal lung sounds bilaterally. negative: Respiratory distress - Cardiovascular Cardiovascular Exam: Regular rate, Normal rhythm, Normal heart sounds - GI/Abdominal GI/Abdominal exam: Soft, Normal bowel sounds. negative: Tenderness - Rectal Rectal exam: Deferred - exam: Deferred - Extremities Extremities exam: Normal inspection, Full ROM, Normal capillary refill. negative: Tenderness - Back Back exam: Reports: Normal inspection, Full ROM. Denies: Muscle spasm, Rash noted, Tenderness - Neurological Neurological exam: Alert, CN II-XII intact, Normal gait, Oriented X3 - Psychiatric Psychiatric exam: Normal affect, Normal mood - Skin Skin exam: Dry, Intact, Normal color, Warm Course Vital Signs 02/05/19 13:33 Temperature 97.8 F Pulse Rate 85 Respiratory 24 Rate Blood Pressure 172/89 Pulse Ox 95 Medical Decision Making - Lab Data Result diagrams: 02/05/19 13:45 02/05/19 13:45 Disposition Disposition: Admit Clinical Impression: Hyponatremia Disposition: Still a Patient at [facility] Decision to Admit: Admit from ER Decision to Admit Date: 02/05/19 Decision to Admit Time: 17:23 Forms: Patient Portal Access Quality - Quality Measures Quality Measures: N/A - Blood Pressure Screening Does Patient Have Any of the Following: No Blood Pressure Classification: Pre-Hypertensive BP Reading Systolic Measurement: 172 Diastolic Measurement: 89 Screening for High Blood Pressure: < Pre-Hypertensive BP, F/U Documented > [[id number]] Pre-Hypertensive Follow-up Interventions: Follow-up with rescreen every year.
[2019-02-05 14:19] LABS: ABSOLUTE NEUTROPHIL COUNT 4.52; BASO % 0.1 % (0-6); GRAN % 67.3 % (47-80); HEMATOCRIT 36.1 % (42.0-52.0); HEMOGLOBIN 13.1 gm/dl (14.0-18.0); LYMPH % 22.5 % (16-45); MEAN CELL VOLUME 88.3 fl (81-97); MEAN CORPUSCULAR HGB CONC 36.3 g/dl (32-36); MEAN PLATELET VOLUME 9.5 fl (7.4-10.4); MONO % 9.1 % (0-9); PLATELET COUNT 282 K/uL (130-400); RED BLOOD COUNT 4.09 M/uL (4.40-5.70); RED CELL DISTRIBUTION WIDTH 11.3 % (11.5-14.5); WHITE BLOOD COUNT W/O DIFF 6.7 K/uL (4.2-12.2)
[2019-02-05 14:29] LABS: BLOOD UREA NITROGEN 18 mg/dL (8-23); CREATININE 0.7 mg/dL (0.7-1.2); EST GLOMERULAR FILTRATION RATE > 60 mL/min; LIPASE 18 U/L (13-60); TOTAL PROTEIN 6.2 g/dL (6.6-8.7)
[2019-02-05 14:31] LABS: GLUCOSE,RANDOM 90 mg/dL (74-109)
[2019-02-05 14:34] LABS: ALB/GLOB RATIO 2.1 (1.1-1.8); ALBUMIN 4.2 g/dL (4.0-5.0); ALKALINE PHOSPHATASE 63 U/L (40-129); ALT/SGPT 12 U/L (<41); AST/SGOT 11 U/L (10.0-50.0)
[2019-02-05 14:55] LABS: URINE APPEARANCE CLEAR; URINE BILIRUBIN NEGATIVE (NEGATIVE); URINE BLOOD NEGATIVE (NEGATIVE); URINE COLOR YELLOW; URINE GLUCOSE (UA) NEGATIVE (NEGATIVE); URINE KETONE NEGATIVE (NEGATIVE); URINE LEUKOCYTE ESTERASE NEGATIVE (NEGATIVE); URINE NITRITE NEGATIVE (NEGATIVE); URINE PROTEIN NEGATIVE (NEGATIVE); URINE UROBILINOGEN 0.2 E.U./dL (0.20 - 1.00)
[2019-02-05] MEDS ORDERED: ACETAMINOPHEN 500 MG TABLET PO PRN (18:55)
[2019-02-05] MEDS: ALBUTEROL SULFATE (0.083%) 2.5 MG/3 ML NEB INH PRN (19:14)
[2019-02-05] MEDS: BACLOFEN 10 MG TABLET PO PRN (20:21)
[2019-02-05] MEDS: BUSPIRONE 5 MG TABLET PO SCH (21:22)
[2019-02-05] MEDS: CARVEDILOL 3.125 MG TABLET PO SCH (21:22)
[2019-02-05] MEDS: ALPRAZOLAM 0.25 MG TABLET PO PRN (21:26)
[2019-02-05] MEDS: TRAZODONE 50 MG TABLET PO SCH (21:27)
[2019-02-05] MEDS: HYDROXYZINE PAMOATE 25 MG CAPSULE PO SCH (21:27)
[2019-02-05] MEDS: IPRATROPIUM/ALBUTEROL (0.5MG/3MG) NEB INH PRN (21:37)
[2019-02-06 07:08] LABS: BLOOD UREA NITROGEN 22 mg/dL (8-23); EST GLOMERULAR FILTRATION RATE > 60 mL/min; GLUCOSE,RANDOM 99 mg/dL (74-109)
[2019-02-06] MEDS: ALBUTEROL SULFATE (0.083%) 2.5 MG/3 ML NEB INH PRN ×2 (07:57→18:32)
--- NOTE | 2019-02-06 07:59 | RADIOLOGY REPORT ---
EXAM: CHEST, TWO VIEWS HISTORY: DIFFICULTY BREATHING. TECHNIQUE: Frontal and lateral views of the chest were obtained. Comparison: 05/14/18 and 01/13/19. FINDINGS: The cardiomediastinal silhouette is normal in size. The pulmonary vasculature is not congested. Severe bullous emphysema with hyperinflation of the lungs. No focal consolidation, pleural effusion, or pneumothorax is seen. There appears to be healing rib fractures bilaterally, including right rib nine and ten and left rib eight and nine. Correlate with recent trauma. The posterior aspect of the right rib five is absent. IMPRESSION: 1. SEVERE EMPHYSEMA. NO EVIDENCE FOR PNEUMONIA OR PULMONARY EDEMA. 2. HEALING RIB FRACTURES BILATERALLY, WHICH WERE PRESENT PREVIOUSLY. JOB NUMBER: [id number] [facility]
[2019-02-06] MEDS: TAMSULOSIN HCL 0.4 MG CAP.ER.24H PO SCH (09:36)
[2019-02-06] MEDS: BUSPIRONE 5 MG TABLET PO SCH ×2 (09:36→21:04)
[2019-02-06] MEDS: CARVEDILOL 3.125 MG TABLET PO SCH ×2 (09:37→21:04)
[2019-02-06] MEDS: CLOPIDOGREL 75MG TABLET PO SCH (09:37)
[2019-02-06] MEDS: HYDROXYZINE PAMOATE 25 MG CAPSULE PO SCH ×3 (09:37→21:04)
[2019-02-06] MEDS: ATORVASTATIN 20 MG TABLET PO SCH (09:37)
[2019-02-06] MEDS ORDERED: HYDROCHLOROTHIAZIDE 25 MG TABLET PO SCH (10:00)
[2019-02-06] MEDS ORDERED: LISINOPRIL 20 MG TABLET PO SCH (10:00)
--- NOTE | 2019-02-06 10:08 | History & Physical ---
History of Present Illness - Date of Service Date of Service for History & Physical: 02/06/19 - History of Present Illness Admitting Diagnosis: hyponatremia, weakness, weight loss History of Present Illness: Marcus Acevedo is a 68 y.o. M who presented to the ED with c/o feeling increasingly weak stating that he hasn't been eating, has no energy and has had weight loss. Has PMHx significant for COPD and severe anxiety. Has been hospitalized or in the ED on several occasions over the last few months. Was diagnosed with hyponatremia and placed on a 1600ml F.R. PCP: Dr. German ED Course Vitals: T 97.8 HR 85 BP 172/89 RR 24 SpO2 95% on RA CXR: Severe emphysema, no acute process Labs: Na 126, K+ 3.5, GFR >60, BNP 153 U/A Negative 02/06/19 1100 Vitals: T 97.9, HR 65, BP 118/58, RR 16, SPO2 100% on RA Reports today that he is still feeling weak and has a slight headache. Anxiety levels were "okay" overnight but reports that most nights, he gets very anxious and then has trouble breathing which then makes him more anxious. Is having pain in his ribs but this is r/t previous fractures d/t a fall a few months ago. Takes Motrin 1x/day at home and would like to have here. Travel Screening - Travel/Exposure Within Last 30 Days Have you traveled within the last 30 days?: No - Travel/Exposure Within Last Year Have you traveled outside the [place] in the last year?: No Review of Systems Reviewed: No additional complaints except as noted below Constitutional: Reports: Weakness. Denies: Chills, Fever, Malaise, Night sweats, Weight change Eyes: Reports: As per HPI. Denies: Eye discharge, Eye pain, Photophobia, Vision change ENT: Reports: As per HPI. Denies: Congestion, Dental pain, Ear pain, Epistaxis, Hearing loss, Throat pain Respiratory: Reports: As per HPI. Denies: Cough, Dyspnea, Hemoptysis, Stridor, Wheezes Cardiovascular: Reports: As per HPI. Denies: Arrhythmia, Chest pain, Dyspnea on exertion, Edema, Murmurs, Orthopnea, Palpitations, Paroxysmal nocturnal dyspnea, Rheumatic Fever, Syncope Endocrine: Reports: As per HPI. Denies: Fatigue, Heat or cold intolerance, Polydipsia, Polyuria Gastrointestinal: Reports: As per HPI. Denies: Abdominal pain, Constipation, Diarrhea, Hematemesis, Hematochezia, Melena, Nausea, Vomiting Genitourinary: Reports: As per HPI. Denies: Dysuria, Frequency, Hematuria, Incontinence, Retention, Testicular pain, Testicular mass, Urgency Musculoskeletal: Reports: As per HPI. Denies: Arthralgia, Back pain, Gout, Joint swelling, Myalgia, Neck pain Skin: Reports: As per HPI. Denies: Bruising, Change in color, Change in hair/nails, Lesions, Pruritus, Rash Neurological: Reports: Headache. Denies: Abnormal gait, Confusion, Numbness, Paresthesias, Seizure, Tingling, Tremors, Vertigo, Weakness Psychiatric: Reports: Anxiety. Denies: Auditory hallucinations, Depression, Homicidal thoughts, Suicidal thoughts, Visual hallucinations Hematological/Lymphatic: Reports: As per HPI. Denies: Anemia, Blood Clots, Easy bleeding, Easy bruising, Swollen glands Past Medical History - SOCIAL HISTORY Smoking Status: Former smoker Alcohol Use: Occasional Drug Use Detail:: Marijuana - RESPIRATORY Hx Respiratory Disorders: Yes Hx Bronchitis: Yes Hx COPD: Yes Hx Dyspnea: Yes Hx Pneumonia: Yes (yearly) Comment:: spontaneous pneumo - CARDIOVASCULAR Hx Cardio Disorders: Yes Hx Hypertension: Yes Comment:: left carotid artery blockage - NEURO Hx Neuro Disorders: No - GI Hx GI Disorders: No - Hx Genitourinary Disorders: No - ENDOCRINE Hx Endocrine Disorders: No - MUSCULOSKELETAL Hx Musculoskeletal Disorders: Yes Hx Arthritis: Yes - PSYCH Hx Psych Problems: Yes Hx Anxiety: Yes Hx Depression: Yes - HEMATOLOGY/ONCOLOGY Hx Hematology/Oncology Disorders: No Family Medical History Any Significant Family History?: Yes Hx Anxiety: Brother/Sister Hx Depression: Brother/Sister Hx Diabetes: Brother/Sister Hx Heart Disease: Mother, Grandparents Hx HTN: Mother, Grandparents Hx Resp Disorders: Father H&P Meds/Allergies - Allergies Allergies: Allergies Allergy/AdvReac Type Severity Reaction Status Date / Time No Known Drug Allergies Allergy Verified 02/05/19 13:38 - Active Medications Active Medications: Current Medications Acetaminophen (Tylenol 500mg Tab) 1,000 mg PO Q6H PRN PRN Reason: PAIN - MILD(1-4)/FEVER Albuterol Sulfate (Albuterol Sulfate) 2.5 mg INH RESP.Q4H PRN PRN Reason: DIFFICULTY IN BREATHING Last Admin: 02/06/19 07:57 Dose: 2.5 mg Documented by: Albuterol/Ipratropium (Duoneb) 3 ml INH RESP.Q6H PRN PRN Reason: WHEEZING Last Admin: 02/05/19 21:37 Dose: 3 ml Documented by: Alprazolam (Xanax) 0.5 mg PO DAILY PRN PRN Reason: ANXIETY Last Admin: 02/05/19 21:26 Dose: 0.5 mg Documented by: Atorvastatin Calcium (Lipitor) 20 mg PO DAILY [facility] Last Admin: 02/06/19 09:37 Dose: 20 mg Documented by: Baclofen (Lioresal) 10 mg PO BID PRN PRN Reason: SPASMS Last Admin: 02/05/19 20:21 Dose: 10 mg Documented by: Buspirone HCl (Buspar) 7.5 mg PO BID [facility] Last Admin: 02/06/19 09:36 Dose: 7.5 mg Documented by: Carvedilol (Coreg) 3.125 mg PO BID [facility] Last Admin: 02/06/19 09:37 Dose: 3.125 mg Documented by: Clopidogrel Bisulfate (Plavix) 75 mg PO DAILY [facility] Last Admin: 02/06/19 09:37 Dose: 75 mg Documented by: Hydrochlorothiazide (Hctz 25mg) 25 mg PO DAILY [facility] Hydroxyzine Pamoate (Vistaril) 50 mg PO TID [facility] Last Admin: 02/06/19 09:37 Dose: 50 mg Documented by: Lisinopril (Zestril) 20 mg PO DAILY [facility] Tamsulosin HCl (Flomax) 0.4 mg PO DAILY [facility] Last Admin: 02/06/19 09:36 Dose: 0.4 mg Documented by: Trazodone HCl (Desyrel) 100 mg PO QHS [facility] Last Admin: 02/05/19 21:27 Dose: 100 mg Documented by: Physical Exam - Vital Signs Vital Signs: Vital Signs - Last 24 Hrs Temp Pulse Pulse Pulse Resp BP BP 02/06/19 07:57 70 18 02/06/19 04:30 97.9 F 65 16 118/58 02/05/19 21:38 87 20 02/05/19 20:35 24 02/05/19 19:15 80 24 02/05/19 18:55 97.7 F 81 16 160/69 02/05/19 18:37 98.4 F 75 22 118/69 02/05/19 17:30 80 24 136/95 02/05/19 14:50 71 22 140/67 02/05/19 13:33 97.8 F 85 24 172/89 Pulse Ox 02/06/19 07:57 92 L 02/06/19 04:30 100 02/05/19 21:38 94 L 02/05/19 20:35 02/05/19 19:15 94 L 02/05/19 18:55 99 02/05/19 18:37 95 02/05/19 17:30 94 L 02/05/19 14:50 96 02/05/19 13:33 95 - General General Appearance: Alert, Oriented x3, Cooperative, No acute distress Limitations: No limitations - Head Head exam: Normal inspection - Eye Eye exam: Normal appearance, PERRL, EOMI Pupils: Normal accommodation - ENT ENT exam: Normal exam, Mucous membranes moist, Normal external ear exam, Normal orophraynx Ear exam: Normal external inspection. negative: External canal tenderness Nasal Exam: negative: Discharge, Sinus tenderness Teeth exam: negative: Dental caries Throat exam: negative: Tonsillar erythema, Tonsillar exudate - Neck Neck exam: Normal inspection, Full ROM. negative: Tenderness - Respiratory Respiratory exam: Normal lung sounds bilaterally, Decreased breath sounds. negative: Respiratory distress - Cardiovascular Cardiovascular Exam: Regular rate, Normal rhythm, Normal heart sounds - GI/Abdominal GI/Abdominal exam: Soft, Normal bowel sounds. negative: Tenderness - Rectal Rectal exam: Deferred - exam: Deferred - Extremities Extremities exam: Normal inspection, Full ROM, Normal capillary refill. nega tive: Tenderness - Back Back exam: Reports: Normal inspection, Full ROM. Denies: Muscle spasm, Rash noted, Tenderness - Neurological Neurological exam: Alert, CN II-XII intact, Normal gait, Oriented X3 - Psychiatric Psychiatric exam: Normal affect, Normal mood - Skin Skin exam: Dry, Intact, Normal color, Warm Results - Labs Result Diagrams: 02/05/19 13:45 02/06/19 14:19 Labs Last 24 Hours: Laboratory Results - last 24 hr 02/05/19 02/05/19 02/05/19 13:45 13:45 13:45 WBC 6.7 RBC 4.09 L Hgb 13.1 L Hct 36.1 L MCV 88.3 MCH 32.0 MCHC 36.3 H RDW 11.3 L Plt Count 282 MPV 9.5 Gran % 67.3 Lymphocytes % 22.5 Monocytes % 9.1 H Eosinophils % 1.0 Basophils % 0.1 Absolute Neutrophils 4.52 Sodium 126 L Potassium 4.0 Chloride 88 L Carbon Dioxide 28.0 Anion Gap 10.0 BUN 18 Creatinine 0.7 Estimated GFR > 60 Random Glucose 90 Calcium 8.9 Total Bilirubin 0.40 AST 11 ALT 12 Alkaline Phosphatase 63 Troponin T < 0.010 NT-Pro-B Natriuret Pep 153.90 H Total Protein 6.2 L Albumin 4.2 Globulin 2.0 Albumin/Globulin Ratio 2.1 H Lipase 18 Urine Color Urine Appearance Urine pH Ur Specific [place] Urine Protein Urine Glucose (UA) Urine Ketones Urine Blood Urine Nitrite Urine Bilirubin Urine Urobilinogen Ur Leukocyte Esterase 02/05/19 02/06/19 14:45 06:30 WBC RBC Hgb Hct MCV MCH MCHC RDW Plt Count MPV Gran % Lymphocytes % Monocytes % Eosinophils % Basophils % Absolute Neutrophils Sodium 126 L Potassium 3.5 Chloride 90 L Carbon Dioxide 29.0 Anion Gap 7.0 BUN 22 Creatinine 1.0 Estimated GFR > 60 Random Glucose 99 Calcium 8.3 L Total Bilirubin AST ALT Alkaline Phosphatase Troponin T NT-Pro-B Natriuret Pep Total Protein Albumin Globulin Albumin/Globulin Ratio Lipase Urine Color Yellow Urine Appearance Clear Urine pH 6.0 Ur Specific [place] <= 1.005 Urine Protein Negative Urine Glucose (UA) Negative Urine Ketones Negative Urine Blood Negative Urine Nitrite Negative Urine Bilirubin Negative Urine Urobilinogen 0.2 Ur Leukocyte Esterase Negative VTE H&P Assessment - Risk for VTE Risk for VTE: Yes Risk Level: Moderate Risk Assessment Date: 02/06/19 Risk Assessment Time: 11:00 VTE Orders Placed or Will Be Placed: No VTE Reason for No Prophylaxis: Not Indicated (Nursing to encourage ambulation) Plan - Inpatient Certification Inpatient Certification: Admit to inpatient care: Based on my medical assessment, after consideration of patient's risk factors (age, co-morbidities and patient presenting symptoms and acuity), I expect that this patient will remain in the hospital greater than or equal to two midnights and that the services needed warrant inpatient care because: Patient Risk Factors: [] Estimated length of stay: [] The patient may reasonably be expected to be discharged or transferred to a hospital within 96 hours after admission to [facility]. Services needed: [] Post hospital care (if known): [] I certify that my determination is in accordance with my understanding of Medicare requirements for reasonable and necessary inpatient services. - Detailed Diagnosis and Plan (1) Weakness generalized Current Visit: Yes Status: Acute Base Code: R53.1 - WEAKNESS Comment: 02/06/19 -Likely r/t hyponatremia. CXR negative for acute process, U/A negative -No improvement in Na level of 126 with 1600ml Fluid Restriction overnight -0.9% N.S. @ 125 ml/hr -BMP q. 8 Hours x 3 -Stopped Hctz (2) Hyponatremia Current Visit: Yes Status: Acute Base Code: E87.1 - HYPO-OSMOLALITY AND HYPONATREMIA Comment: 02/06/19 -Na 126, no improvement with 1600ml F.R. -Stopped Hctz 25mg zakiya -Serum and Urine Os. pending -0.9% N.S. @ 125 ml/hr started after Serum/Urine Osm. collected -BMP q. 8 Hours x 3 (3) Anxiety Current Visit: No Status: Acute Base Code: F41.9 - ANXIETY DISORDER, UNSPECIFIED Comment: 02/06/19 -continue home med Vistaril 50mg tid -continue home med Xanax 0.5mg daily PRN -Continue home med Buspar (4) Full code status Current Visit: No Status: Acute Base Code: Z78.9 - OTHER SPECIFIED HEALTH STATUS Comment: 02/06/19 -pt. is a full code (5) DVT prophylaxis Current Visit: No Status: Acute Base Code: [id number] - Comment: 02/06/19 -Moderate risk d/t age -Nursing to ambulate patient
[2019-02-06] MEDS: BREO (FLUTICASONE/VILANTEROL) 200MCG/25MCG INHALER INH SCH (10:30)
[2019-02-06] MEDS: UMECLIDINIUM BROMIDE (INCRUSE) 62.5MCG IH SCH (10:31)
[2019-02-06] MEDS: LISINOPRIL 20 MG TABLET PO SCH (10:33)
[2019-02-06] MEDS: 0.9 % SODIUM CHLORIDE 1000ML 1,000 ML IV PRN ×3 (11:05→18:47)
[2019-02-06] MEDS: IBUPROFEN 600 MG TABLET PO PRN ×2 (11:28→21:09)
[2019-02-06 13:30] LABS: OSMOLALITY,SERUM 266 mOsm/kg (280-295)
[2019-02-06 13:49] LABS: OSMOLALITY,URINE 256 mOsm/kg (250-1200)
[2019-02-06 14:40] LABS: BLOOD UREA NITROGEN 24 mg/dL (8-23); EST GLOMERULAR FILTRATION RATE > 60 mL/min; GLUCOSE,RANDOM 97 mg/dL (74-109)
[2019-02-06] MEDS: BACLOFEN 10 MG TABLET PO PRN (20:36)
[2019-02-06] MEDS: ALPRAZOLAM 0.25 MG TABLET PO PRN (21:04)
[2019-02-06] MEDS: TRAZODONE 50 MG TABLET PO SCH (21:04)
[2019-02-06 22:13] LABS: BLOOD UREA NITROGEN 22 mg/dL (8-23); CREATININE 0.9 mg/dL (0.7-1.2); EST GLOMERULAR FILTRATION RATE > 60 mL/min; GLUCOSE,RANDOM 121 mg/dL (74-109)
[2019-02-07] MEDS: 0.9 % SODIUM CHLORIDE 1000ML 1,000 ML IV PRN ×2 (01:21→09:35)
[2019-02-07] MEDS: IBUPROFEN 600 MG TABLET PO PRN (06:37)
[2019-02-07 07:23] LABS: BLOOD UREA NITROGEN 21 mg/dL (8-23); CREATININE 0.8 mg/dL (0.7-1.2); EST GLOMERULAR FILTRATION RATE > 60 mL/min; GLUCOSE,RANDOM 85 mg/dL (74-109)
[2019-02-07] MEDS: IPRATROPIUM/ALBUTEROL (0.5MG/3MG) NEB INH PRN (09:33)
[2019-02-07] MEDS: BREO (FLUTICASONE/VILANTEROL) 200MCG/25MCG INHALER INH SCH (09:33)
[2019-02-07] MEDS: UMECLIDINIUM BROMIDE (INCRUSE) 62.5MCG IH SCH (09:33)
[2019-02-07] MEDS: ATORVASTATIN 20 MG TABLET PO SCH (09:37)
[2019-02-07] MEDS: BUSPIRONE 5 MG TABLET PO SCH (09:37)
[2019-02-07] MEDS: CLOPIDOGREL 75MG TABLET PO SCH (09:37)
[2019-02-07] MEDS: HYDROXYZINE PAMOATE 25 MG CAPSULE PO SCH (09:38)
[2019-02-07] MEDS: TAMSULOSIN HCL 0.4 MG CAP.ER.24H PO SCH (09:38)
[2019-02-07] MEDS: CARVEDILOL 3.125 MG TABLET PO SCH (09:38)
[2019-02-07] MEDS: LISINOPRIL 20 MG TABLET PO SCH (09:38)
--- NOTE | 2019-02-07 10:42 | Discharge Summary ---
Providers Discharge Summary Date: 02/07/19 Date of admission: 02/05/19 18:34 Attending physician: RAHUL GERMAN Primary care physician: RAHUL GERMAN Physical Exam - Vital Signs Vital Signs: Vital Signs - Last 24 Hrs Temp Pulse Pulse Resp BP Pulse Ox 02/07/19 09:37 88 18 99 02/06/19 20:39 20 02/06/19 20:00 97.6 F 79 20 151/69 95 02/06/19 18:35 80 18 96 02/06/19 12:00 98.2 F 75 16 114/57 100 - General General Appearance: Alert, Oriented x3, Cooperative, No acute distress Limitations: No limitations - Head Head exam: Normal inspection - Eye Eye exam: Normal appearance, PERRL, EOMI Pupils: Normal accommodation - ENT ENT exam: Normal exam, Mucous membranes moist, Normal external ear exam, Normal orophraynx Ear exam: Normal external inspection. negative: External canal tenderness Nasal Exam: negative: Discharge, Sinus tenderness Mouth exam: Normal external inspection, Tongue normal Teeth exam: negative: Dental caries Throat exam: negative: Tonsillar erythema, Tonsillar exudate - Neck Neck exam: Normal inspection, Full ROM. negative: Tenderness - Respiratory Respiratory exam: Normal lung sounds bilaterally, Decreased breath sounds. negative: Respiratory distress - Cardiovascular Cardiovascular Exam: Regular rate, Normal rhythm, Normal heart sounds - GI/Abdominal GI/Abdominal exam: Soft, Normal bowel sounds. negative: Tenderness - Rectal Rectal exam: Deferred - exam: Deferred - Extremities Extremities exam: Normal inspection, Full ROM, Normal capillary refill. negative: Tenderness - Back Back exam: Reports: Normal inspection, Full ROM. Denies: Muscle spasm, Rash noted, Tenderness - Neurological Neurological exam: Alert, CN II-XII intact, Normal gait, Oriented X3 - Psychiatric Psychiatric exam: Normal affect, Normal mood - Skin Skin exam: Dry, Intact, Normal color, Warm Hospitalization - Hospitalization Admission Diagnosis: hyponatremia, weakness, weight loss - Problem List/Discharge Diagnosis (1) Weakness generalized Status: Acute Base Code: R53.1 - WEAKNESS Comment: 02/07/19 -Improved with correction of Na level back to normal range -Instructed to stop taking Lisinopril/Hctz (2) Hyponatremia Status: Acute Base Code: E87.1 - HYPO-OSMOLALITY AND HYPONATREMIA Comment: 02/07/19 -Na 136, after IV 0.9% NS -Serum Os. decreased at 266, likely r/t Thiazide diuretic use -Urine Os. Wnl -Instructed to stop taking Lisinopril/Hctz at home (3) HTN (hypertension) Status: Acute Base Code: I10 - ESSENTIAL (PRIMARY) HYPERTENSION Comment: 02/07/19 -Stop Lisinopril/Hctz as thiazide is likely attributing to hyponatremia -Continue Lisinopril 20mg for now although consider switch to Losartan d/t increased dry cough that may be r/t ACEI? -Start Norvasc 5mg daily -F/u with PCP, Dr. German as scheduled by Case Management (4) Anxiety Status: Acute Base Code: F41.9 - ANXIETY DISORDER, UNSPECIFIED Comment: 02/07/19 -continue home med Vistaril 50mg tid -continue home med Xanax 0.5mg daily PRN -Continue home med Buspar (5) Full code status Status: Acute Base Code: Z78.9 - OTHER SPECIFIED HEALTH STATUS Comment: 02/07/19 -pt. is a full code (6) DVT prophylaxis Status: Acute Base Code: [id number] - Comment: 02/07/19 -Moderate risk d/t age -Nursing to ambulate patient - Hospitalization Course Disposition: Home, Self-Care Hospital Course: Marcus Acevedo is a 68 y.o. M who presented to the ED with c/o feeling increasingly weak stating that he hasn't been eating, has no energy and has had weight loss. Has PMHx significant for COPD and severe anxiety. Has been hospitalized or in the ED on several occasions over the last few months. Was diagnosed with hyponatremia and placed on a 1600ml F.R. PCP: Dr. German ED Course Vitals: T 97.8 HR 85 BP 172/89 RR 24 SpO2 95% on RA CXR: Severe emphysema, no acute process Labs: Na 126, K+ 3.5, GFR >60, BNP 153 U/A Negative 02/06/19 1100 Vitals: T 97.9, HR 65, BP 118/58, RR 16, SPO2 100% on RA Reports today that he is still feeling weak and has a slight headache. Anxiety levels were "okay" overnight but reports that most nights, he gets very anxious and then has trouble breathing which then makes him more anxious. Is having pain in his ribs but this is r/t previous fractures d/t a fall a few months ago. Takes Motrin 1x/day at home and would like to have here. 02/07/19 Reports feeling less weak. Anxiety levels are tolerable at this point. Procedures: Imaging and X-Rays 02/05/19 15:27 CXR [CHEST 2 VIEWS] [RAD] Stat Abnormal Labs: Abnormal Lab Results 02/05/19 02/05/19 02/05/19 Range/Units 13:45 13:45 13:45 RBC 4.09 L (4.40-5.70) M/uL Hgb 13.1 L (14.0-18.0) gm/dl Hct 36.1 L (42.0-52.0) % MCHC 36.3 H (32-36) g/dl RDW 11.3 L (11.5-14.5) % Monocytes % 9.1 H (0-9) % Sodium 126 L (136-145) mmol/L Chloride 88 L (98-107) mmol/L Carbon Dioxide (22-29) mmol/L Anion Gap (7-16) BUN (8-23) mg/dL Random Glucose (74-109) mg/dL Serum Osmolality (280-295) mOsm/kg Calcium (8.8-10.2) mg/dL NT-Pro-B Natriuret Pep 153.90 H (<125) pg/mL Total Protein 6.2 L (6.6-8.7) g/dL Albumin/Globulin Ratio 2.1 H (1.1-1.8) 02/05/19 02/06/19 02/06/19 Range/Units 13:45 06:30 14:19 RBC (4.40-5.70) M/uL Hgb (14.0-18.0) gm/dl Hct (42.0-52.0) % MCHC (32-36) g/dl RDW (11.5-14.5) % Monocytes % (0-9) % Sodium 126 L 127 L (136-145) mmol/L Chloride 90 L 90 L (98-107) mmol/L Carbon Dioxide 30.0 H (22-29) mmol/L Anion Gap (7-16) BUN 24 H (8-23) mg/dL Random Glucose (74-109) mg/dL Serum Osmolality 266 L (280-295) mOsm/kg Calcium 8.3 L 8.2 L (8.8-10.2) mg/dL NT-Pro-B Natriuret Pep (<125) pg/mL Total Protein (6.6-8.7) g/dL Albumin/Globulin Ratio (1.1-1.8) 02/06/19 02/07/19 Range/Units 21:45 06:20 RBC (4.40-5.70) M/uL Hgb (14.0-18.0) gm/dl Hct (42.0-52.0) % MCHC (32-36) g/dl RDW (11.5-14.5) % Monocytes % (0-9) % Sodium 133 L (136-145) mmol/L Chloride (98-107) mmol/L Carbon Dioxide (22-29) mmol/L Anion Gap 5.0 L (7-16) BUN (8-23) mg/dL Random Glucose 121 H (74-109) mg/dL Serum Osmolality (280-295) mOsm/kg Calcium 7.8 L 7.7 L (8.8-10.2) mg/dL NT-Pro-B Natriuret Pep (<125) pg/mL Total Protein (6.6-8.7) g/dL Albumin/Globulin Ratio (1.1-1.8) Condition at Discharge: (1) Good Discharge Medications - Discharge Medications Prescriptions: Amlodipine Besylate 5 mg PO DAILY 14 Days #14 tab Home Medications: Ambulatory Orders Budesonide/Formoterol Fumarate [Symbicort 160-4.5 Mcg Inhaler] 2 puff IH BID 30 Days #120 05/11/14 [Last Taken 01/12/19] Trazodone HCl 100 mg PO QHS 90 Days #90 05/11/14 [Last Taken 01/12/19] Carvedilol [Coreg] 3.125 mg PO BID 90 Days #180 09/21/18 [Last Taken 01/12/19] Baclofen 10 mg PO BID PRN 30 Days #60 10/04/18 [Last Taken 01/12/19] Lisinopril 20 mg PO DAILY 90 Days #90 10/04/18 [Last Taken 01/12/19] Tiotropium Rosalia [Spiriva Respimat] 2 puff IH DAILY 30 Days #60 11/09/18 [Last Taken 01/12/19] Clopidogrel Bisulfate [Clopidogrel] 75 mg PO DAILY 90 Days #90 12/12/18 [Last Taken 01/12/19] Atorvastatin Calcium [Lipitor] 20 mg PO DAILY 90 Days #90 tab 01/09/19 [Last Taken 01/12/19] Acetaminophen [Tylenol 500Mg Tab] 1,000 mg PO Q6H PRN tablet 02/07/19 [Last Taken Unknown] Albuterol Sulfate 0.083% [Neb] [Albuterol Sulfate] 2.5 mg INH RESP.Q4H PRN nebulization solution 02/07/19 [Last Taken Unknown] Amlodipine Besylate 5 mg PO DAILY 14 Days #14 tab 02/07/19 [Last Taken Unknown] Ibuprofen [Motrin 600Mg] 600 mg PO Q8H PRN tablet 02/07/19 [Last Taken Unknown] Discharge Plan - Discharge Instructions Instructions: Hyponatremia (DC), Weakness (DC), Hypoxemia (DC) Additional Instructions: Activity: as tolerated Diet: as tolerated Follow Up: Follow up appointment with Dr. German on February 15 at 2:20PM at [facility] Additional: Stop taking Lisinopril/Hctz. Take Lisinopril 20mg daily Start taking Norvasc 5mg daily Quality Measures - Quality Measures Quality Measures: Advance Directives, Coronary Artery Disease: Antiplatelet Therapy, Documentation of Current Medications in Medical Record, Elder Maltreatment Screen and Follow-Up Plan, Screening for High Blood Pressure and F/U Documented - Current Medications Quality Measure: Measure #130: Documentation of Current Medications Documentation of Current Medications: <Current Medications Documented/Reviewed> [U9252] - Blood Pressure Screening Quality Measure: Screening for High Blood Pressure and Follow-Up Documented Does Patient Have Any of the Following: Active Dx of HTN Blood Pressure Classification: Normal BP Reading Systolic Measurement: 118 Diastolic Measurement: 59 Screening for High Blood Pressure: Patient Exclusion, Hx of HTN [G9744] - Coronary Artery Disease Quality Measure: Measure #6: Coronary Artery Disease (CAD) Antiplatelet Therapy: <ASA or clopidogrel prescribed> [6502F] - Advance Directives Quality Measure: Measure #47: Care Plan Advance Directives Established: No Advance Directives Information Provided To Patient: No Advance Directives on File: No Living Will: No Power of Billing And Quality Technician: No Advance Care Planning: <Care Plan/Decision Maker Documented; Discussed & Documented> [7673F] - Elder Abuse Suspicion Index Screening: Elder Abuse Suspicion Index Screening Rely on people for bathing, dressing, shopping, banking, etc: Yes Prevented from getting food, clothes, medication, etc: No Made to feel shamed or threatened by someone: No Forced to sign papers or use money against will: No Feel afraid, touched in ways not wanted or hurt physically: No Poor eye contact, withdrawn, malnourished, cuts or bruises: No Screening Result: Negative result EASI Reference Information: Sharon SURESH, Naila C, Stan D, Roxi Montalvo.Development and validation of a tool to assist physicians identification of elder abuse: The Elder Abuse Suspicion Index (EASI ). Journal of Elder Abuse and Neglect, 2008; 20 (3): 276-300. - Elder Maltreatment Screen Quality Measures: Elder Maltreatment Screen and Follow-Up Plan Elder Maltreatment Screen: <Negative, No Follow-Up Plan Required> [G3992]
== END 2019-02-07 11:30 | disposition home or self-care (01) | DRG 641 ==
LOC: ER 13:29 → MEDSURG 18:34
PROVIDERS: ADMIT Internal Medicine; ATTEND Internal Medicine
DX: E87.1 Hypo-osmolality and hyponatremia (principal); R53.1 Weakness; F41.9 Anxiety disorder, unspecified; R63.4 Abnormal weight loss; I10 Essential (primary) hypertension; J44.9 Chronic obstructive pulmonary disease, unspecified; M19.90 Unspecified osteoarthritis, unspecified site; Z87.891 Personal history of nicotine dependence
CPT/HCPCS: 71046; 80048; 80053; 81003; 83690; 83880; 83930; 83935; 84484; 85025; 94640; 99223; 99239; 99285; J7613

== ENCOUNTER 2019-02-24 22:23 | Observation (INO) | payer MEDICARE ==
[2019-02-24] MEDS ORDERED: METHYLPREDNISOLONE PF 125MG/VIAL IVP ONE (22:39)
[2019-02-24] MEDS ORDERED: IPRATROPIUM/ALBUTEROL (0.5MG/3MG) NEB INH ONE (22:39)
--- NOTE | 2019-02-24 22:44 | Emergency Department Record ---
History of Present Illness - General Chief Complaint: Shortness of breath Stated Complaint: SYED Time Seen by Provider: 02/24/19 22:38 Source: Patient Mode of Arrival: Ambulatory Limitations: No limitations - History of Present Illness Initial Comments: 68 yo male presents to ED for evaluation of difficulty in breathing symptoms that began this evening. Patient reports a long-standing history of COPD, denies fevers, chills, or recent illness. Patient denies recent chest injury following multiple rib fractures several months ago. Patient reports that he was short of breath while eating this evening prompting visit to the ED. MD Complaint: Shortness of breath Onset/Timin -: Days(s) Severity: Moderate Consistency: Constant Improves With: Bronchodilators Worsens With: Exertion Known History Of: COPD Associated Symptoms: Denies other symptoms - Related Data Home Oxygen Therapy: No Allergies Allergy/AdvReac Type Severity Reaction Status Date / Time No Known Drug Allergies Allergy Verified 02/24/19 22:36 Review of Systems Constitutional: Denies: Chills, Fever, Malaise, Night sweats Eyes: Denies: Eye discharge, Eye pain ENT: Denies: Congestion, Ear pain, Epistaxis Respiratory: Reports: Cough, Dyspnea, Wheezes Cardiovascular: Reports: Dyspnea on exertion. Denies: Chest pain, Palpitations Endocrine: Denies: Fatigue, Heat or cold intolerance Gastrointestinal: Denies: Abdominal pain, Nausea, Vomiting Genitourinary: Denies: Incontinence, Retention Musculoskeletal: Denies: Arthralgia, Back pain Skin: Denies: Bruising, Change in color Neurological: Denies: Abnormal gait, Confusion, Headache, Seizure Psychiatric: Denies: Anxiety Hematological/Lymphatic: Denies: Anemia, Blood Clots Past Medical History - SOCIAL HISTORY Smoking Status: Former smoker Drug Use Detail:: Marijuana - RESPIRATORY Hx Respiratory Disorders: Yes Hx Bronchitis: Yes Hx COPD: Yes Hx Dyspnea: Yes Hx Pneumonia: Yes (yearly) Comment:: spontaneous pneumo - CARDIOVASCULAR Hx Cardio Disorders: Yes Hx Hypertension: Yes Comment:: left carotid artery blockage - NEURO Hx Neuro Disorders: No - GI Hx GI Disorders: No - Hx Genitourinary Disorders: No - ENDOCRINE Hx Endocrine Disorders: No - MUSCULOSKELETAL Hx Musculoskeletal Disorders: Yes Hx Arthritis: Yes - PSYCH Hx Psych Problems: Yes Hx Anxiety: Yes Hx Depression: Yes - HEMATOLOGY/ONCOLOGY Hx Hematology/Oncology Disorders: No Family Medical History Hx Anxiety: Brother/Sister Hx Depression: Brother/Sister Hx Diabetes: Brother/Sister Hx Heart Disease: Mother, Grandparents Hx HTN: Mother, Grandparents Hx Resp Disorders: Father Physical Exam - General General Appearance: Alert, Oriented x3, Cooperative, Moderate distress Limitations: No limitations - Head Head exam: Atraumatic, Normocephalic, Normal inspection Head exam detail: negative: Abrasion, Contusion, Fan's sign, General tenderness, Hematoma, Laceration - Eye Eye exam: Normal appearance. negative: Conjunctival injection, Periorbital swelling, Periorbital tenderness, Scleral icterus - ENT Ear exam: negative: Auricular hematoma, Auricular trauma Nasal Exam: negative: Active bleeding, Discharge, Dried blood, Foreign body Mouth exam: negative: Drooling, Laceration, Muffled voice, Tongue elevation - Neck Neck exam: Normal inspection. negative: Meningismus, Tenderness - Respiratory Respiratory exam: Accessory muscle use, Decreased breath sounds, Prolonged expiratory, Respiratory distress - Cardiovascular Cardiovascular Exam: Normal rhythm, Normal heart sounds, Tachycardia - GI/Abdominal GI/Abdominal exam: Soft. negative: Rebound, Rigid, Tenderness - Rectal Rectal exam: Deferred - exam: Deferred - Extremities Extremities exam: Normal inspection. negative: Pedal edema, Tenderness - Back Back exam: Denies: CVA tenderness (R), CVA tenderness (L) - Neurological Neurological exam: Alert, Normal gait, Oriented X3 - Psychiatric Psychiatric exam: Normal affect, Normal mood - Skin Skin exam: Normal color. 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 Reevaluation #2: 02/24/19 23:17 Laboratory studies were reviewed and are grossly unremarkable for an acute process. CXR: Chronic changes COPD No acute infiltrate Reevaluation #3: 02/24/19 23:55 Patient reassessed, oxygen saturation 88% with mild pursed breathing. Will admit for further evaluation. Reevaluation #4: 02/25/19 06:55 Case was discussed with Jyoti Emery, will accept admission at this time. Medical Decision Making - Lab Data Result diagrams: 02/24/19 22:45 02/24/19 22:45 Disposition Disposition: Admit Clinical Impression: COPD with acute exacerbation, Hypoxia Disposition: Still a Patient at [facility] Decision to Admit: Admit from ER Decision to Admit Date: 02/24/19 Decision to Admit Time: 23:56 Condition: (2) Stable Time of Disposition: 23:56 Quality - Quality Measures Quality Measures: N/A - Blood Pressure Screening Does Patient Have Any of the Following: Active Dx of HTN Blood Pressure Classification: Pre-Hypertensive BP Reading Systolic Measurement: 140 Diastolic Measurement: 83 Screening for High Blood Pressure: Patient Exclusion, Hx of HTN [G9744]
[2019-02-24] MEDS ORDERED: 0.9 % SODIUM CHLORIDE 1000ML 500 ML IV SCH (22:45)
[2019-02-24 22:57] LABS: ABSOLUTE NEUTROPHIL COUNT 6.09; BASO % 0.2 % (0-6); EOS % 2.2 % (0-6); GRAN % 70.7 % (47-80); HEMATOCRIT 34.8 % (42.0-52.0); HEMOGLOBIN 12.5 gm/dl (14.0-18.0); MEAN CELL VOLUME 89.2 fl (81-97); MEAN CORPUSCULAR HGB CONC 35.9 g/dl (32-36); MEAN PLATELET VOLUME 9.7 fl (7.4-10.4); MONO % 6.9 % (0-9); PLATELET COUNT 209 K/uL (130-400); WHITE BLOOD COUNT W/O DIFF 8.6 K/uL (4.2-12.2)
[2019-02-24 23:11] LABS: BLOOD UREA NITROGEN 16 mg/dL (8-23); CREATININE 0.7 mg/dL (0.7-1.2); EST GLOMERULAR FILTRATION RATE > 60 mL/min
[2019-02-24 23:13] LABS: GLUCOSE,RANDOM 124 mg/dL (74-109)
[2019-02-24 23:16] LABS: ALB/GLOB RATIO 2.2 (1.1-1.8); ALBUMIN 4.1 g/dL (4.0-5.0); ALKALINE PHOSPHATASE 61 U/L (40-129); ALT/SGPT 11 U/L (<41); AST/SGOT 10 U/L (10.0-50.0)
[2019-02-25] MEDS ORDERED: BACLOFEN 10 MG TABLET PO PRN (00:30)
[2019-02-25] MEDS ORDERED: ALBUTEROL SULFATE (0.083%) 2.5 MG/3 ML NEB INH PRN (00:30)
[2019-02-25] MEDS ORDERED: 0.9 % SODIUM CHLORIDE 1000ML 1,000 ML IV PRN (00:30)
[2019-02-25] MEDS ORDERED: TRAZODONE 50 MG TABLET PO ONE (01:48)
[2019-02-25] MEDS: IPRATROPIUM/ALBUTEROL (0.5MG/3MG) NEB INH SCH ×2 (07:35→08:00)
[2019-02-25] MEDS ORDERED: ALPRAZOLAM 0.25 MG TABLET PO PRN (08:15)
--- NOTE | 2019-02-25 09:44 | History & Physical ---
History of Present Illness - Date of Service Date of Service for History & Physical: 02/25/19 - History of Present Illness Admitting Diagnosis: COPD exacerbation. Hypoxia History of Present Illness: 68 yo male admitted for observation for anxiety and COPD exacerbation. Pt reports feeling increasingly anxious the closer he gets to his CEA next monday. Pt believes his breathing will improve with this surgery. Sees Dr German PCP and Regina for anxiety (). Pt has end stage COPD, taking spiriva and symbicort, no home oxygen. Recent chest injury, multiple rib fxs several months ago. 02/24/19 Pt presented to ER for increased shortness of breath that happened suddenly while eating dinner. Denied fever, chills, recent illness or new injuries. EKG no acute changes CXR no acute process, severe emphysema noted, healing rib fx noted no pneumothorax 97.6, HR 106, BP 136/98, RR 22, 90% RA WBC 8.6, Hgb 12.5, Hct 34.8, Plt 209 Na 136, K 3.6, CO2 27, BUN 16, Cr 0.8, GFR>60, LFTs wnl Trop <0.010 Pt given Duo neb in ER but still remained short of breath approx 1 hour after treatment, pt placed in obs for COPD exacerbation with an anxiety component. 02/25/19 Pt resting in bed, no resp distress noted, able to talk in complete sentences with no shortness of breath. Pt reports that he believes he is having increased anxiety related to pending surgery. Denies any shortness of breath this AM and is comfortable with D/C this afternoon after lunch. Has been taking all of his inhalers, has not run out or skipped doses. Lungs are dim but no wheezes or rhonchi noted. Pt on 09/26 L NC, placed on RA, VSS. D/C today PCP [facility] Travel Screening - Travel/Exposure Within Last 30 Days Have you traveled within the last 30 days?: No - Travel/Exposure Within Last Year Have you traveled outside the [place] in the last year?: No - Additonal Travel Details Have you been exposed to anyone with a communicable illness?: No - Travel Symptoms Symptom Screening: None Review of Systems Constitutional: Denies: Chills, Fever, Malaise, Night sweats Eyes: Denies: Eye discharge, Eye pain ENT: Denies: Congestion, Ear pain, Epistaxis Respiratory: Reports: Cough, Dyspnea, Wheezes Cardiovascular: Reports: Dyspnea on exertion. Denies: Chest pain, Palpitations Endocrine: Denies: Fatigue, Heat or cold intolerance Gastrointestinal: Denies: Abdominal pain, Nausea, Vomiting Genitourinary: Denies: Incontinence, Retention Musculoskeletal: Denies: Arthralgia, Back pain Skin: Denies: Bruising, Change in color Neurological: Denies: Abnormal gait, Confusion, Headache, Seizure Psychiatric: Denies: Anxiety Hematological/Lymphatic: Denies: Anemia, Blood Clots Past Medical History - SOCIAL HISTORY Smoking Status: Former smoker Drug Use Detail:: Marijuana - RESPIRATORY Hx Respiratory Disorders: Yes Hx Bronchitis: Yes Hx COPD: Yes Hx Dyspnea: Yes Hx Pneumonia: Yes (yearly) Comment:: spontaneous pneumo - CARDIOVASCULAR Hx Cardio Disorders: Yes Hx Hypertension: Yes Comment:: left carotid artery blockage - NEURO Hx Neuro Disorders: No - GI Hx GI Disorders: No - Hx Genitourinary Disorders: No - ENDOCRINE Hx Endocrine Disorders: No - MUSCULOSKELETAL Hx Musculoskeletal Disorders: Yes Hx Arthritis: Yes - PSYCH Hx Psych Problems: Yes Hx Anxiety: Yes Hx Depression: Yes - HEMATOLOGY/ONCOLOGY Hx Hematology/Oncology Disorders: No Family Medical History Hx Anxiety: Brother/Sister Hx Depression: Brother/Sister Hx Diabetes: Brother/Sister Hx Heart Disease: Mother, Grandparents Hx HTN: Mother, Grandparents Hx Resp Disorders: Father H&P Meds/Allergies - Allergies Allergies: Allergies Allergy/AdvReac Type Severity Reaction Status Date / Time No Known Drug Allergies Allergy Verified 02/24/19 22:36 - Active Medications Active Medications: Current Medications Albuterol Sulfate (Albuterol Sulfate) 2.5 mg INH RESP.Q4H PRN PRN Reason: DIFFICULTY IN BREATHING Albuterol/Ipratropium (Duoneb) 3 ml INH RESP.Q4H.WA [facility] Last Admin: 02/25/19 08:00 Dose: 3 ml Documented by: Alprazolam (Xanax) 0.5 mg PO DAILY PRN PRN Reason: ANXIETY Amlodipine Besylate (Norvasc) 5 mg PO DAILY [facility] Last Admin: 02/25/19 09:07 Dose: 5 mg Documented by: Atorvastatin Calcium (Lipitor) 20 mg PO DAILY [facility] Last Admin: 02/25/19 09:07 Dose: 20 mg Documented by: Baclofen (Lioresal) 10 mg PO BID PRN PRN Reason: SPASMS Buspirone HCl (Buspar) 7.5 mg PO BID [facility] Last Admin: 02/25/19 09:07 Dose: 7.5 mg Documented by: Carvedilol (Coreg) 3.125 mg PO BID [facility] Last Admin: 02/25/19 09:07 Dose: 3.125 mg Documented by: Hydroxyzine Pamoate (Vistaril) 50 mg PO TID [facility] Last Admin: 02/25/19 09:06 Dose: 50 mg Documented by: Sodium Chloride () 1,000 mls @ 100 mls/hr IV .Q10H PRN PRN Reason: LARGE VOLUME IV Last Admin: 02/25/19 01:21 Dose: 100 mls/hr Documented by: Lisinopril (Zestril) 20 mg PO DAILY [facility] Last Admin: 02/25/19 09:06 Dose: 20 mg Documented by: Methylprednisolone Sodium Succinate (Solu-Medrol) 125 mg IVP DAILY [facility] Last Admin: 02/25/19 09:08 Dose: 125 mg Documented by: Tamsulosin HCl (Flomax) 0.4 mg PO DAILY [facility] Last Admin: 02/25/19 09:07 Dose: 0.4 mg Documented by: Trazodone HCl (Desyrel) 100 mg PO QHS [facility] Physical Exam - Vital Signs Vital Signs: Vital Signs - Last 24 Hrs Temp Pulse Pulse Pulse Resp BP BP 02/25/19 08:05 78 18 02/25/19 08:03 97.9 F 83 18 176/94 02/25/19 01:10 22 02/25/19 00:42 79 24 140/83 02/25/19 00:30 97.9 F 75 24 140/83 02/24/19 23:31 72 24 138/73 02/24/19 22:40 81 22 02/24/19 22:31 97.6 F 106 H 22 136/98 Pulse Ox 02/25/19 08:05 02/25/19 08:03 98 02/25/19 01:10 02/25/19 00:42 92 L 02/25/19 00:30 93 L 02/24/19 23:31 90 L 02/24/19 22:40 93 L 02/24/19 22:31 90 L - General General Appearance: Alert, Oriented x3, Cooperative, No acute distress Limitations: No limitations - Head Head exam: Atraumatic, Normocephalic, Normal inspection Head exam detail: negative: Abrasion, Contusion, Fan's sign, General tenderness, Hematoma, Laceration - Eye Eye exam: Normal appearance. negative: Conjunctival injection, Periorbital swelling, Periorbital tenderness, Scleral icterus - ENT Ear exam: negative: Auricular hematoma, Auricular trauma Nasal Exam: negative: Active bleeding, Discharge, Dried blood, Foreign body Mouth exam: negative: Drooling, Laceration, Muffled voice, Tongue elevation - Neck Neck exam: Normal inspection. negative: Meningismus, Tenderness - Respiratory Respiratory exam: Decreased breath sounds. negative: Accessory muscle use, Prolonged expiratory, Respiratory distress, Rhonchi, Wheezes - Cardiovascular Cardiovascular Exam: Normal rhythm, Normal heart sounds, Tachycardia Peripheral Pulses: 3+: Radial (R), Radial (L), Dorsalis Pedis (R), Dorsalis Pedis (L) - GI/Abdominal GI/Abdominal exam: Soft. negative: Rebound, Rigid, Tenderness - Rectal Rectal exam: Deferred - exam: Deferred - Extremities Extremities exam: Normal inspection. negative: Pedal edema, Tenderness - Back Back exam: Denies: CVA tenderness (R), CVA tenderness (L) - Neurological Neurological exam: Alert, Normal gait, Oriented X3 - Psychiatric Psychiatric exam: Normal affect, Normal mood - Skin Skin exam: Normal color. negative: Abrasion Type of lesion: negative: abrasion Results - Labs Result Diagrams: 02/24/19 22:45 02/24/19 22:45 Labs Last 24 Hours: Laboratory Results - last 24 hr 02/24/19 02/24/19 22:45 22:45 WBC 8.6 RBC 3.90 L Hgb 12.5 L Hct 34.8 L MCV 89.2 MCH 32.0 MCHC 35.9 RDW 12.0 Plt Count 209 MPV 9.7 Gran % 70.7 Lymphocytes % 20.0 Monocytes % 6.9 Eosinophils % 2.2 Basophils % 0.2 Absolute Neutrophils 6.09 Sodium 136 Potassium 3.6 Chloride 99 Carbon Dioxide 27.0 Anion Gap 10.0 BUN 16 Creatinine 0.7 Estimated GFR > 60 Random Glucose 124 H Calcium 9.7 Total Bilirubin 0.50 AST 10 ALT 11 Alkaline Phosphatase 61 Troponin T < 0.010 Total Protein 6.0 L Albumin 4.1 Globulin 1.9 Albumin/Globulin Ratio 2.2 H - Imaging and Cardiology Chest x-ray Status: Pending (dictation reports reviewed) VTE H&P Assessment - Risk for VTE Risk for VTE: Yes Risk Level: High Risk Assessment Date: 02/25/19 Risk Assessment Time: 09:45 VTE Orders Placed or Will Be Placed: Yes Plan - Detailed Diagnosis and Plan (1) COPD with acute exacerbation Current Visit: Yes Status: Acute Base Code: J44.1 - CHRONIC OBSTRUCTIVE PULMONARY DISEASE W (ACUTE) EXACERBATION Comment: 02/25/19 -CXR neg for acute process, severe emphysema noted, no fx -solumedrol 125mg changed to 60mg this am, to PO for d/c -pt has neb txs at home, can use QID PRN -no home O2, no need for O2 supplement this admission (2) Hypoxia Current Visit: Yes Status: Acute Base Code: R09.02 - HYPOXEMIA Comment: 02/25/19 - 98% 0.5L NC, room air trial in progress (3) Anxiety Current Visit: No Status: Acute Base Code: F41.9 - ANXIETY DISORDER, UNSPECIFIED Comment: 02/25/19 -continue home med Vistaril 50mg tid -Continue home med Buspar (4) Full code status Current Visit: No Status: Acute Base Code: Z78.9 - OTHER SPECIFIED HEALTH STATUS Comment: 02/25/19 -pt. is a full code (5) DVT (deep venous thrombosis) Current Visit: Yes Status: Acute Base Code: I82.409 - ACUTE EMBOLISM AND THOMBOS UNSP DEEP VN UNSP LOWER EXTREMITY Comment: 02/25/19 -pt is high risk but off all anticoagulation meds in preperation for CEA 03/04/19 -no lovenox today, d/c today, will start if pt is not able to d/c today
[2019-02-25] MEDS ORDERED: TAMSULOSIN HCL 0.4 MG CAP.ER.24H PO SCH (10:00)
[2019-02-25] MEDS ORDERED: HYDROXYZINE PAMOATE 25 MG CAPSULE PO SCH (10:00)
[2019-02-25] MEDS ORDERED: BUSPIRONE 5 MG TABLET PO SCH (10:00)
[2019-02-25] MEDS ORDERED: AMLODIPINE BESYLATE 5MG TAB PO SCH (10:00)
[2019-02-25] MEDS ORDERED: METHYLPREDNISOLONE PF 125MG/VIAL IVP SCH ×2 (10:00)
[2019-02-25] MEDS ORDERED: LISINOPRIL 20 MG TABLET PO SCH (10:00)
[2019-02-25] MEDS ORDERED: CARVEDILOL 3.125 MG TABLET PO SCH (10:00)
[2019-02-25] MEDS ORDERED: UMECLIDINIUM BROMIDE (INCRUSE) 62.5MCG IH SCH (10:00)
[2019-02-25] MEDS ORDERED: ATORVASTATIN 20 MG TABLET PO SCH (10:00)
--- NOTE | 2019-02-25 10:33 | Discharge Summary ---
Providers Discharge Summary Date: 02/25/19 Date of admission: 02/25/19 00:37 Expected Date of Discharge: 02/25/19 Attending physician: RAHUL ROWELL Primary care physician: RAHUL ROWELL Physical Exam - Vital Signs Vital Signs: Vital Signs - Last 24 Hrs Temp Pulse Pulse Pulse Resp BP BP 02/25/19 08:05 78 18 02/25/19 08:03 97.9 F 83 18 176/94 02/25/19 01:10 22 02/25/19 00:42 79 24 140/83 02/25/19 00:30 97.9 F 75 24 140/83 02/24/19 23:31 72 24 138/73 02/24/19 22:40 81 22 02/24/19 22:31 97.6 F 106 H 22 136/98 Pulse Ox 02/25/19 08:05 02/25/19 08:03 98 02/25/19 01:10 02/25/19 00:42 92 L 02/25/19 00:30 93 L 02/24/19 23:31 90 L 02/24/19 22:40 93 L 02/24/19 22:31 90 L - General General Appearance: Alert, Oriented x3, Cooperative, No acute distress Limitations: No limitations - Head Head exam: Atraumatic, Normocephalic, Normal inspection Head exam detail: negative: Abrasion, Contusion, Fan's sign, General tenderness, Hematoma, Laceration - Eye Eye exam: Normal appearance. negative: Conjunctival injection, Periorbital swelling, Periorbital tenderness, Scleral icterus - ENT Ear exam: negative: Auricular hematoma, Auricular trauma Nasal Exam: negative: Active bleeding, Discharge, Dried blood, Foreign body Mouth exam: negative: Drooling, Laceration, Muffled voice, Tongue elevation - Neck Neck exam: Normal inspection. negative: Meningismus, Tenderness - Respiratory Respiratory exam: Decreased breath sounds. negative: Accessory muscle use, Prolonged expiratory, Respiratory distress, Rhonchi, Wheezes - Cardiovascular Cardiovascular Exam: Normal rhythm, Normal heart sounds, Tachycardia Peripheral Pulses: 3+: Radial (R), Radial (L), Dorsalis Pedis (R), Dorsalis Pedis (L) - GI/Abdominal GI/Abdominal exam: Soft. negative: Rebound, Rigid, Tenderness - Rectal Rectal exam: Deferred - exam: Deferred - Extremities Extremities exam: Normal inspection. negative: Pedal edema, Tenderness - Back Back exam: Denies: CVA tenderness (R), CVA tenderness (L) - Neurological Neurological exam: Alert, Normal gait, Oriented X3 - Psychiatric Psychiatric exam: Normal affect, Normal mood - Skin Skin exam: Normal color. negative: Abrasion Type of lesion: negative: abrasion Hospitalization - Hospitalization Admission Diagnosis: COPD exacerbation. Hypoxia - Problem List/Discharge Diagnosis (1) COPD with acute exacerbation Current Visit: Yes Status: Acute Base Code: J44.1 - CHRONIC OBSTRUCTIVE PULMONARY DISEASE W (ACUTE) EXACERBATION Comment: 02/25/19 -CXR neg for acute process, severe emphysema noted, no fx -solumedrol 125mg changed to 60mg this am, no home steroids, 97% RA no distress -pt has neb txs at home, can use QID PRN -no home O2, no need for O2 supplement this admission (2) Hypoxia Current Visit: Yes Status: Acute Base Code: R09.02 - HYPOXEMIA Comment: 02/25/19 - 98% 0.5L NC, room air trial in progress (3) Anxiety Current Visit: No Status: Acute Base Code: F41.9 - ANXIETY DISORDER, UNSPECIFIED Comment: 02/25/19 -continue home med Vistaril 50mg tid -Continue home med Buspar (4) Full code status Current Visit: No Status: Acute Base Code: Z78.9 - OTHER SPECIFIED HEALTH STATUS Comment: 02/25/19 -pt. is a full code (5) DVT (deep venous thrombosis) Current Visit: Yes Status: Acute Base Code: I82.409 - ACUTE EMBOLISM AND THOMBOS UNSP DEEP VN UNSP LOWER EXTREMITY Comment: 02/25/19 -pt is high risk but off all anticoagulation meds in preperation for CEA 03/04/19 -no lovenox today, d/c today, will start if pt is not able to d/c today - Hospitalization Course Procedures: Imaging and X-Rays 02/24/19 22:39 CHEST 2 VIEWS [RAD] Stat Cardiology Procedures 02/24/19 22:39 EKG NOW Abnormal Labs: Abnormal Lab Results 02/24/19 02/24/19 Range/Units 22:45 22:45 RBC 3.90 L (4.40-5.70) M/uL Hgb 12.5 L (14.0-18.0) gm/dl Hct 34.8 L (42.0-52.0) % Random Glucose 124 H (74-109) mg/dL Total Protein 6.0 L (6.6-8.7) g/dL Albumin/Globulin Ratio 2.2 H (1.1-1.8) Condition at Discharge: (2) Stable Discharge Medications - Discharge Medications Home Medications: Ambulatory Orders Budesonide/Formoterol Fumarate [Symbicort 160-4.5 Mcg Inhaler] 2 puff IH BID 30 Days #120 05/11/14 [Last Taken 01/12/19] Trazodone HCl 100 mg PO QHS 90 Days #90 05/11/14 [Last Taken 01/12/19] Carvedilol [Coreg] 3.125 mg PO BID 90 Days #180 09/21/18 [Last Taken 01/12/19] Baclofen 10 mg PO BID PRN 30 Days #60 10/04/18 [Last Taken 01/12/19] Lisinopril 20 mg PO DAILY 90 Days #90 10/04/18 [Last Taken 01/12/19] Tiotropium [place] [Spiriva Respimat] 2 puff IH DAILY 30 Days #60 11/09/18 [Last Taken 01/12/19] Atorvastatin Calcium [Lipitor] 20 mg PO DAILY 90 Days #90 tab 01/09/19 [Last Taken 01/12/19] Albuterol Sulfate 0.083% [Neb] [Albuterol Sulfate] 2.5 mg INH RESP.Q4H PRN nebulization solution 02/25/19 [Last Taken Unknown] Ipratropium/Albuterol [Duoneb] 3 ml INH RESP.Q4H.WA ampul.neb 02/25/19 [Last Taken Unknown] Discharge Plan - Discharge Instructions Diet at Discharge: Regular Diet Additional Instructions: Hospital follow up appointment with Lila Emery NP on February 28 at 1:40PM Quality Measures - Quality Measures Quality Measures: Advance Directives, Coronary Artery Disease: Antiplatelet Therapy, Documentation of Current Medications in Medical Record, Elder Maltreatment Screen and Follow-Up Plan, Screening for High Blood Pressure and F/U Documented - Current Medications Quality Measure: Measure #130: Documentation of Current Medications Documentation of Current Medications: <Current Medications Documented/Reviewed> [F5035] - Blood Pressure Screening Quality Measure: Screening for High Blood Pressure and Follow-Up Documented Does Patient Have Any of the Following: Active Dx of HTN Blood Pressure Classification: Pre-Hypertensive BP Reading Systolic Measurement: 140 Diastolic Measurement: 83 Screening for High Blood Pressure: Patient Exclusion, Hx of HTN [G9744] - Coronary Artery Disease Quality Measure: Measure #6: Coronary Artery Disease (CAD) Antiplatelet Therapy: Not Prescribed for Medical Reason [4286F with 1P] (pt having surgery in 1 week) Medical Reason for NOT Prescribing Antiplatelet: Other Medical Reason (surgery in 1 week) - Advance Directives Quality Measure: Measure #47: Care Plan Advance Directives Established: No Advance Directives Information Provided To Patient: No Advance Directives on File: No Living Will: No Power of Dish Up Person: No Advance Care Planning: <Care Plan/Decision Maker Documented; Discussed & Documented> [8583F] - Elder Abuse Suspicion Index Screening: Elder Abuse Suspicion Index Screening Rely on people for bathing, dressing, shopping, banking, etc: No Prevented from getting food, clothes, medication, etc: No Made to feel shamed or threatened by someone: No Forced to sign papers or use money against will: No Feel afraid, touched in ways not wanted or hurt physically: No Poor eye contact, withdrawn, malnourished, cuts or bruises: No Screening Result: Negative result EASI Reference Information: Sharon SURESH, Naila C, Stan D, Roxi Montalvo.Development and validation of a tool to assist physicians identification of elder abuse: The Elder Abuse Suspicion Index (EASI ). Journal of Elder Abuse and Neglect, 2008; 20 (3): 276-300. - Elder Maltreatment Screen Quality Measures: Elder Maltreatment Screen and Follow-Up Plan Elder Maltreatment Screen: <Negative, No Follow-Up Plan Required> [[id number]]
[2019-02-25] MEDS ORDERED: TRAZODONE 50 MG TABLET PO SCH ×2 (22:00)
--- NOTE | 2019-02-26 05:03 | RADIOLOGY REPORT ---
EXAM: CHEST, TWO VIEWS HISTORY: DIFFICULTY IN BREATHING. SHORTNESS OF BREATH. TECHNIQUE: Upright PA and lateral views of the chest were obtained. Comparison: Two view chest radiographic examination dated 02/05/19. FINDINGS: The heart is not enlarged and the pulmonary vasculature is nondilated. There is hyperinflation of the lungs. Bullous emphysema is redemonstrated with large bulla demonstrated in the upper left lung. Linear scarring is again noted within the lateral right lung base and the retrocardiac left lung base. No new lung consolidation, costophrenic angle blunting or pneumothorax is seen. An old healed fracture of the posterolateral left seventh rib is present. A healed/healing fracture of the posterolateral right eighth rib is also redemonstrated. There is partial absence of the proximal right fifth rib, stable. There is a rectangular opacity projecting at the left suprahilar level on the frontal view likely a structure outside the body as two additional similar structures project more inferiorly and laterally at the left hemithorax level. These are likely cardiac monitoring leads. Mild posterior costophrenic angle blunting persists likely relating to hyperinflation or scarring. No new lytic or blastic bone lesion. IMPRESSION: 1. STABLE RADIOGRAPHIC APPEARANCE OF THE CHEST SINCE 02/05/19. 2. SEVERE EMPHYSEMA REDEMONSTRATED. LINEAR SCARRING AGAIN NOTED IN EACH LUNG BASE. JOB NUMBER: [id number] [facility]
[2019-02-26] MEDS ORDERED: ENOXAPARIN 40 MG/0.4 ML SYR SQ SCH (10:00)
== END 2019-02-25 11:16 | disposition home or self-care (01) ==
LOC: ER 22:23 → MEDSURG 02-25 00:37
PROVIDERS: ADMIT Internal Medicine; ATTEND Internal Medicine
DX: J44.1 Chronic obstructive pulmonary disease with (acute) exacerbation (principal); R09.02 Hypoxemia; I10 Essential (primary) hypertension; M19.90 Unspecified osteoarthritis, unspecified site; I65.22 Occlusion and stenosis of left carotid artery; Z87.891 Personal history of nicotine dependence; F41.9 Anxiety disorder, unspecified; I82.409 Acute embolism and thrombosis of unspecified deep veins of unspecified lower extremity
CPT/HCPCS: 85025; 80053; 84484; 71046; 94640 ×2; 93005; 93010; G0378; 96374; 99236; 99285; J2930; J7030

== ENCOUNTER 2019-03-06 20:44 | Emergency (ER) | payer MEDICARE | END 2019-03-06 21:10 | disposition left against medical advice (07) | LOC: ER 20:44 | DX: Z53.21 Procedure and treatment not carried out due to patient leaving prior to being seen by health care provider (principal) | CPT/HCPCS: 99281 ==

== ENCOUNTER 2019-03-11 01:59 | Observation (INO) | payer MEDICARE ==
[2019-03-11] MEDS ORDERED: IPRATROPIUM/ALBUTEROL (0.5MG/3MG) NEB INH ONE (02:09)
[2019-03-11] MEDS ORDERED: METHYLPREDNISOLONE PF 125MG/VIAL IVP ONE (02:09)
[2019-03-11] MEDS ORDERED: ALBUTEROL SULFATE (0.083%) 2.5 MG/3 ML NEB INH ONE ×2 (02:09→03:13)
[2019-03-11] MEDS ORDERED: LORAZEPAM 2 MG/ML VIAL IV ONE (02:09)
[2019-03-11] MEDS ORDERED: ALBUTEROL (0.5% CONCENTRATED) 2.5 MG/0.5 ML VIAL.NEB INH ONE ×2 (02:12→03:14)
--- NOTE | 2019-03-11 02:54 | Emergency Department Record ---
History of Present Illness - General Chief Complaint: Shortness of breath Stated Complaint: SOB Time Seen by Provider: 03/11/19 02:05 Source: Patient Mode of Arrival: Ambulatory Limitations: No limitations - History of Present Illness Initial Comments: pt became increasingly sob tonight. pt has copd. pt had recent endarectomy. MD Complaint: Shortness of breath Onset/Timin -: Days(s) Consistency: Getting worse Improves With: Nothing Worsens With: Nothing Associated Symptoms: Denies other symptoms Treatments Prior to Arrival: None - Related Data Previous Rx's Medication Instructions Recorded Albuterol Sulfate 0.083% [Neb] 2.5 mg INH RESP.Q4H PRN 02/25/19 [Albuterol Sulfate] nebulization solution Ipratropium/Albuterol [Duoneb] 3 ml INH RESP.Q4H.WA ampul.neb 02/25/19 Allergies Allergy/AdvReac Type Severity Reaction Status Date / Time No Known Drug Allergies Allergy Verified 02/24/19 22:36 Travel Screening - Travel/Exposure Within Last 30 Days Have you traveled within the last 30 days?: No Review of Systems Reviewed: No additional complaints except as noted below Constitutional: Reports: As per HPI. Denies: Chills, Fever, Malaise, Night sweats, Weakness, Weight change Eyes: Reports: As per HPI. Denies: Eye discharge, Eye pain, Photophobia, Vision change ENT: Reports: As per HPI. Denies: Congestion, Dental pain, Ear pain, Epistaxis, Hearing loss, Throat pain Respiratory: Reports: As per HPI, Dyspnea. Denies: Cough, Hemoptysis, Stridor, Wheezes Cardiovascular: Reports: As per HPI. Denies: Arrhythmia, Chest pain, Dyspnea on exertion, Edema, Murmurs, Orthopnea, Palpitations, Paroxysmal nocturnal dyspnea, Rheumatic Fever, Syncope Endocrine: Reports: As per HPI. Denies: Fatigue, Heat or cold intolerance, Polydipsia, Polyuria Gastrointestinal: Reports: As per HPI. Denies: Abdominal pain, Constipation, Diarrhea, Hematemesis, Hematochezia, Melena, Nausea, Vomiting Genitourinary: Reports: As per HPI. Denies: Dysuria, Frequency, Hematuria, Incontinence, Retention, Testicular pain, Testicular mass, Urgency Musculoskeletal: Reports: As per HPI. Denies: Arthralgia, Back pain, Gout, Joint swelling, Myalgia, Neck pain Skin: Reports: As per HPI. Denies: Bruising, Change in color, Change in hair/nails, Lesions, Pruritus, Rash Neurological: Reports: As per HPI. Denies: Abnormal gait, Confusion, Headache, Numbness, Paresthesias, Seizure, Tingling, Tremors, Vertigo, Weakness Psychiatric: Reports: As per HPI. Denies: Anxiety, Auditory hallucinations, Depression, Homicidal thoughts, Suicidal thoughts, Visual hallucinations Hematological/Lymphatic: Reports: As per HPI. Denies: Anemia, Blood Clots, Easy bleeding, Easy bruising, Swollen glands Past Medical History - SOCIAL HISTORY Smoking Status: Former smoker - RESPIRATORY Hx Respiratory Disorders: Yes Hx Bronchitis: Yes Hx COPD: Yes Hx Dyspnea: Yes Hx Pneumonia: Yes (yearly) Comment:: spontaneous pneumo - CARDIOVASCULAR Hx Cardio Disorders: Yes Hx Hypertension: Yes - NEURO Hx Neuro Disorders: No - GI Hx GI Disorders: No - Hx Genitourinary Disorders: No - ENDOCRINE Hx Endocrine Disorders: No - MUSCULOSKELETAL Hx Musculoskeletal Disorders: Yes Hx Arthritis: Yes - PSYCH Hx Psych Problems: Yes Hx Anxiety: Yes Hx Depression: Yes - HEMATOLOGY/ONCOLOGY Hx Hematology/Oncology Disorders: No Family Medical History Any Significant Family History?: Yes Hx Anxiety: Brother/Sister Hx Depression: Brother/Sister Hx Diabetes: Brother/Sister Hx Heart Disease: Mother, Grandparents Hx HTN: Mother, Grandparents Hx Resp Disorders: Father Physical Exam - General General Appearance: Alert, Oriented x3, Cooperative, Mild distress - Head Head exam: Normal inspection - Eye Eye exam: Normal appearance, PERRL, EOMI Pupils: Normal accommodation - ENT ENT exam: Normal exam, Mucous membranes moist, Normal external ear exam, Normal orophraynx, TM's normal bilaterally Ear exam: Normal external inspection. negative: External canal tenderness Nasal Exam: Normal inspection. negative: Discharge, Sinus tenderness Mouth exam: Normal external inspection, Tongue normal Teeth exam: Normal inspection. negative: Dental caries Throat exam: Normal inspection. negative: Tonsillar erythema, Tonsillar exudate - Neck Neck exam: Normal inspection, Full ROM. negative: Tenderness - Respiratory Respiratory exam: Normal lung sounds bilaterally. negative: Respiratory distress - Cardiovascular Cardiovascular Exam: Regular rate, Normal rhythm, Normal heart sounds - GI/Abdominal GI/Abdominal exam: Soft, Normal bowel sounds. negative: Tenderness - Rectal Rectal exam: Deferred - exam: Deferred - Extremities Extremities exam: Normal inspection, Full ROM, Normal capillary refill. negative: Tenderness - Back Back exam: Reports: Normal inspection, Full ROM. 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 ] Respiratory 32 H 20 20 Rate Blood Pressure 185/101 Pulse Ox 80 L 94 L 94 L - Reevaluation(s) Reevaluation #1: 03/11/19 02:53 pt feels better Reevaluation #2: 03/11/19 03:31 pt is improved but still desats to 85 without oxygen Disposition Disposition: Admit Clinical Impression: COPD with acute exacerbation, Hypoxia Disposition: Still a Patient at [facility] Decision to Admit: Admit from ER Decision to Admit Date: 03/11/19 Decision to Admit Time: 03:33 Forms: Patient Portal Access Quality - Quality Measures Quality Measures: N/A - Blood Pressure Screening Does Patient Have Any of the Following: Active Dx of HTN Blood Pressure Classification: Hypertensive Reading Systolic Measurement: 185 Diastolic Measurement: 101 Screening for High Blood Pressure: Patient Exclusion, Hx of HTN [[id number]]
[2019-03-11 03:38] LABS: ABSOLUTE NEUTROPHIL COUNT 11.55; BASO % 0.1 % (0-6); EOS % 1.6 % (0-6); GRAN % 79.6 % (47-80); HEMATOCRIT 39.6 % (42.0-52.0); HEMOGLOBIN 13.7 gm/dl (14.0-18.0); LYMPH % 13.5 % (16-45); MEAN CORPUSCULAR HEMOGLOBIN 31.4 pg (27-33); MEAN CORPUSCULAR HGB CONC 34.6 g/dl (32-36); MEAN PLATELET VOLUME 10.2 fl (7.4-10.4); MONO % 5.2 % (0-9); PLATELET COUNT 269 K/uL (130-400); RED BLOOD COUNT 4.35 M/uL (4.40-5.70); RED CELL DISTRIBUTION WIDTH 12.6 % (11.5-14.5); WHITE BLOOD COUNT W/O DIFF 14.5 K/uL (4.2-12.2)
[2019-03-11 03:47] LABS: BLOOD UREA NITROGEN 13 mg/dL (8-23); CREATININE 0.7 mg/dL (0.7-1.2); EST GLOMERULAR FILTRATION RATE > 60 mL/min
[2019-03-11 03:50] LABS: GLUCOSE,RANDOM 125 mg/dL (74-109)
[2019-03-11] MEDS ORDERED: ALBUTEROL SULFATE (0.083%) 2.5 MG/3 ML NEB INH PRN (04:32)
[2019-03-11] MEDS ORDERED: ACETAMINOPHEN 500 MG TABLET PO PRN (04:32)
[2019-03-11] MEDS: METHYLPREDNISOLONE PF 125MG/VIAL IVP SCH ×4 (04:51→21:15)
--- NOTE | 2019-03-11 07:22 | RADIOLOGY REPORT ---
EXAM: CHEST, TWO VIEWS HISTORY: SHORTNESS OF BREATH. COPD HISTORY. TECHNIQUE: Upright PA and lateral views of the chest were obtained. Comparison: Two view chest radiographic examination dated 02/24/19. FINDINGS: The heart remains in normal in size. No new pulmonary venous hypertension. The lungs remain hyperinflated. Bullous emphysema is again noted within the upper lungs, left greater than right. Linear scarring is again noted within the right lung base. No definite new lung consolidation, costophrenic angle blunting, or pneumothorax. Minimal posterior costophrenic angle blunting persists likely relating to hyperinflation or scarring. No new lytic or blastic bone lesion. An old healed fracture of the posterolateral left seventh rib is redemonstrated and there are old fracture deformities of the posterolateral right eighth and ninth ribs. Partial resection of the proximal right fifth rib is redemonstrated. Mild degenerative end plate changes scattered throughout the visualized spine. IMPRESSION: 1. GROSSLY STABLE RADIOGRAPHIC APPEARANCE OF THE CHEST SINCE 02/24/19, GIVEN DIFFERENCES IN TECHNIQUE. 2. SEVERE EMPHYSEMA REDEMONSTRATED. LINEAR SCARRING AGAIN NOTED WITHIN THE RIGHT LUNG BASE. JOB NUMBER: [id number] [facility]
[2019-03-11] MEDS ORDERED: ALPRAZOLAM 0.25 MG TABLET PO PRN (08:15)
[2019-03-11] MEDS: IPRATROPIUM/ALBUTEROL (0.5MG/3MG) NEB INH PRN ×3 (09:07→19:19)
[2019-03-11] MEDS: HYDROXYZINE PAMOATE 25 MG CAPSULE PO SCH ×3 (09:34→22:48)
[2019-03-11] MEDS: AMLODIPINE BESYLATE 5MG TAB PO SCH (09:35)
[2019-03-11] MEDS: ATORVASTATIN 20 MG TABLET PO SCH (09:35)
[2019-03-11] MEDS: LISINOPRIL 20 MG TABLET PO SCH (09:36)
[2019-03-11] MEDS: TAMSULOSIN HCL 0.4 MG CAP.ER.24H PO SCH (09:36)
[2019-03-11] MEDS: BUSPIRONE 5 MG TABLET PO SCH ×2 (09:37→22:47)
[2019-03-11] MEDS: CARVEDILOL 3.125 MG TABLET PO SCH ×2 (09:37→22:49)
[2019-03-11] MEDS: IBUPROFEN 400 MG TABLET PO PRN ×2 (09:38→22:42)
--- NOTE | 2019-03-11 09:44 | History & Physical ---
History of Present Illness - Date of Service Date of Service for History & Physical: 03/11/19 - History of Present Illness Admitting Diagnosis: acute exacerbation copd with hypoxia History of Present Illness: 68 y/o male presenting to ED with 1 day history of increasing shortness of breath. Patient does have history of severe COPD, currently does not use oxygen at home but does have history of frequent ED visits and hospitalizations for exacerbation COPD with significant hypoxia at time of ED arrival. He recently had a carotid endarterectomy 7 days ago which subsequently developed wound site cellulitis and is currently on Clindamycin 300mg Q 6 hrs for this which was added 5 days ago after he was seen at [facility] ED for this. He reports after the endarterectomy he felt good and at his baseline then about 3 days ago began feeling fatigued, increase cough and increased sputum production which progressed into significant restlessness, anxiety and shortness of breath. Just prior to coming to ED he tested his BP and was 199/99 with RA SPO2 83%. He notes more anxiety related to breathing since his fall in November 2018 with rib fractures. Has had increase frequency of ED visits for SYED and pneumonia since. Past medical history includes former smoker, COPD, recurrent pneumonia, HTN, arthrisits, anxiety related to COPD, depression. Upon arrival to ED was hypertensive, dyspneic, RA SPO2 80% which increased to 92% on 2L O2. Afebrile. WBC 14.5. Carbon dioxide 30. CXR sever emphysema with linear scarring right base. He quickly improved with IV solumedrol, breathing treatments, ativan IV and was admitted for further observation, IV steroids. 03/11/19 1000: resting in bed comfortably, no respiratory distress. Does report the left side of his neck at the endarterectomy site is very sore. PCP: Dr German Pulmonology: Dr Robison Cardiology Travel Screening - Travel/Exposure Within Last 30 Days Have you traveled within the last 30 days?: No - Travel/Exposure Within Last Year Have you traveled outside the [place] in the last year?: No - Additonal Travel Details Have you been exposed to anyone with a communicable illness?: No Review of Systems Constitutional: Reports: As per HPI. Denies: Chills, Fever, Malaise, Night sweats, Weakness, Weight change Eyes: Reports: As per HPI. Denies: Eye discharge, Eye pain, Photophobia, Vision change ENT: Reports: As per HPI. Denies: Congestion, Dental pain, Ear pain, Epistaxis, Hearing loss, Throat pain Respiratory: Reports: As per HPI, Dyspnea. Denies: Cough, Hemoptysis, Stridor, Wheezes Cardiovascular: Reports: As per HPI. Denies: Arrhythmia, Chest pain, Dyspnea on exertion, Edema, Murmurs, Orthopnea, Palpitations, Paroxysmal nocturnal dyspnea, Rheumatic Fever, Syncope Endocrine: Reports: As per HPI. Denies: Fatigue, Heat or cold intolerance, Polydipsia, Polyuria Gastrointestinal: Reports: As per HPI. Denies: Abdominal pain, Constipation, Diarrhea, Hematemesis, Hematochezia, Melena, Nausea, Vomiting Genitourinary: Reports: As per HPI. Denies: Dysuria, Frequency, Hematuria, Incontinence, Retention, Testicular pain, Testicular mass, Urgency Musculoskeletal: Reports: As per HPI. Denies: Arthralgia, Back pain, Gout, Joint swelling, Myalgia, Neck pain Skin: Reports: As per HPI. Denies: Bruising, Change in color, Change in hair/nails, Lesions, Pruritus, Rash Neurological: Reports: As per HPI. Denies: Abnormal gait, Confusion, Headache, Numbness, Paresthesias, Seizure, Tingling, Tremors, Vertigo, Weakness Psychiatric: Reports: As per HPI. Denies: Anxiety, Auditory hallucinations, Depression, Homicidal thoughts, Suicidal thoughts, Visual hallucinations Hematological/Lymphatic: Reports: As per HPI. Denies: Anemia, Blood Clots, Easy bleeding, Easy bruising, Swollen glands Past Medical History - SOCIAL HISTORY Smoking Status: Former smoker Alcohol Use: Rare, Occasional Drug Use: Occasional Drug Use Detail:: Marijuana - RESPIRATORY Hx Respiratory Disorders: Yes Hx Bronchitis: Yes Hx COPD: Yes Hx Dyspnea: Yes Hx Pneumonia: Yes (yearly) Comment:: spontaneous pneumo - CARDIOVASCULAR Hx Cardio Disorders: Yes Hx Hypertension: Yes - NEURO Hx Neuro Disorders: No - GI Hx GI Disorders: No - Hx Genitourinary Disorders: No - ENDOCRINE Hx Endocrine Disorders: No - MUSCULOSKELETAL Hx Musculoskeletal Disorders: Yes Hx Arthritis: Yes - PSYCH Hx Psych Problems: Yes Hx Anxiety: Yes Hx Depression: Yes - HEMATOLOGY/ONCOLOGY Hx Hematology/Oncology Disorders: No Family Medical History Any Significant Family History?: Yes Hx Anxiety: Brother/Sister Hx Depression: Children, Brother/Sister Hx Diabetes: Brother/Sister Hx Heart Disease: Mother, Grandparents Hx HTN: Mother Hx Resp Disorders: Father H&P Meds/Allergies - Allergies Allergies: Allergies Allergy/AdvReac Type Severity Reaction Status Date / Time No Known Drug Allergies Allergy Verified 02/24/19 22:36 - Home Medications Previous Rx's Medication Instructions Recorded Albuterol Sulfate 0.083% [Neb] 2.5 mg INH RESP.Q4H PRN 02/25/19 [Albuterol Sulfate] nebulization solution Ipratropium/Albuterol [Duoneb] 3 ml INH RESP.Q4H.WA ampul.neb 02/25/19 - Active Medications Active Medications: Current Medications Acetaminophen (Tylenol 500mg Tab) 1,000 mg PO Q6H PRN PRN Reason: PAIN - MILD(1-4)/FEVER Albuterol Sulfate (Albuterol Sulfate) 2.5 mg INH RESP.Q4H PRN PRN Reason: DIFFICULTY IN BREATHING Albuterol/Ipratropium (Duoneb) 3 ml INH RESP.Q6H PRN PRN Reason: WHEEZING Last Admin: 03/11/19 09:07 Dose: 3 ml Documented by: Alprazolam (Xanax) 0.5 mg PO DAILY PRN PRN Reason: ANXIETY Amlodipine Besylate (Norvasc) 5 mg PO DAILY [facility] Atorvastatin Calcium (Lipitor) 20 mg PO DAILY [facility] Baclofen (Lioresal) 10 mg PO BID PRN PRN Reason: SPASMS Buspirone HCl (Buspar) 7.5 mg PO BID [facility] Carvedilol (Coreg) 3.125 mg PO BID [facility] Hydroxyzine Pamoate (Vistaril) 50 mg PO TID [facility] Ibuprofen (Motrin 200mg) 800 mg PO Q8H PRN PRN Reason: HEADACHE Lisinopril (Zestril) 20 mg PO DAILY [facility] Methylprednisolone Sodium Succinate (Solu-Medrol) 60 mg IVP Q8H [facility] Last Admin: 03/11/19 04:51 Dose: Not Given Documented by: Tamsulosin HCl (Flomax) 0.4 mg PO DAILY [facility] Trazodone HCl (Desyrel) 100 mg PO QHS [facility] Physical Exam - Vital Signs Vital Signs: Vital Signs - Last 24 Hrs Temp Pulse Pulse Resp BP BP Pulse Ox 03/11/19 09:05 83 18 98 03/11/19 04:40 98.4 F 85 20 161/78 93 L 03/11/19 03:16 82 20 91 L 03/11/19 02:14 82 20 94 L 03/11/19 02:03 84 20 94 L 03/11/19 02:00 98.1 F 93 H 32 H 185/101 80 L - General General Appearance: Alert, Oriented x3, Cooperative, No acute distress Limitations: No limitations - Head Head exam: Normal inspection - Eye Eye exam: Normal appearance, PERRL, EOMI Pupils: Normal accommodation - ENT ENT exam: Normal exam, Mucous membranes moist, Normal external ear exam, Normal orophraynx, TM's normal bilaterally Ear exam: Normal external inspection. negative: External canal tenderness Nasal Exam: Normal inspection. negative: Discharge, Sinus tenderness Mouth exam: Normal external inspection, Tongue normal Teeth exam: Normal inspection. negative: Dental caries Throat exam: Normal inspection. negative: Tonsillar erythema, Tonsillar exudate - Neck Neck exam: Normal inspection, Full ROM, Tenderness (left endart site is erythematous, indurated but not fluctuant, tender to touch, no exudate. No carotid bruit noted. Carotid pulse strong and intact) - Respiratory Respiratory exam: Decreased breath sounds. negative: Respiratory distress - Cardiovascular Cardiovascular Exam: Regular rate, Normal rhythm, Normal heart sounds Peripheral Pulses: 2+: Radial (R), Radial (L) - GI/Abdominal GI/Abdominal exam: Soft, Normal bowel sounds. negative: Tenderness - Rectal Rectal exam: Deferred - exam: Deferred - Extremities Extremities exam: Normal inspection, Full ROM, Normal capillary refill. negative: Tenderness - Back Back exam: Reports: Normal inspection, Full ROM. Denies: Muscle spasm, Rash noted, Tenderness - Neurological Neurological exam: Alert, CN II-XII intact, Normal gait, Oriented X3 - Psychiatric Psychiatric exam: Normal affect, Normal mood - Skin Skin exam: Dry, Intact, Normal color, Warm Type of lesion: Other (surgical site left carotid ) Results - Labs Result Diagrams: 03/11/19 02:08 03/11/19 02:08 Labs Last 24 Hours: Laboratory Results - last 24 hr 03/11/19 03/11/19 02:08 02:08 WBC 14.5 H RBC 4.35 L Hgb 13.7 L Hct 39.6 L MCV 91.0 MCH 31.4 MCHC 34.6 RDW 12.6 Plt Count 269 MPV 10.2 Gran % 79.6 Lymphocytes % 13.5 L Monocytes % 5.2 Eosinophils % 1.6 Basophils % 0.1 Absolute Neutrophils 11.55 Sodium 136 Potassium 4.1 Chloride 96 L Carbon Dioxide 30.0 H Anion Gap 10.0 BUN 13 Creatinine 0.7 Estimated GFR > 60 Random Glucose 125 H Calcium 9.9 - Imaging and Cardiology Chest x-ray Status: Report reviewed VTE H&P Assessment - Risk for VTE Risk for VTE: Yes Risk Level: Low Risk Assessment Date: 03/11/19 Risk Assessment Time: 10:38 VTE Orders Placed or Will Be Placed: Yes Plan - Detailed Diagnosis and Plan (1) COPD with acute exacerbation Current Visit: Yes Status: Acute Base Code: J44.1 - CHRONIC OBSTRUCTIVE PULMONARY DISEASE W (ACUTE) EXACERBATION Comment: 03/11/19 -CXR neg for acute process, severe emphysema noted, no fx -solumedrol 60mg q8hr, consider changing to Prednisone in am, no previous home steroids, 93% RA no distress - Procalcitonin today - CBC, CMP am - Duoneb Q6hr PRN, Albuterolo neb q 4hr PRN - Rocephin 1gm BID, Azithromycin 500mg PO today then 250mg x 4 days -pt has neb txs at home as well as Incruse QD -does quality for home O2 (2) Leukocytosis Current Visit: Yes Status: Acute Base Code: D72.829 - ELEVATED WHITE BLOOD CELL COUNT, UNSPECIFIED Comment: 03/11/19 - Unclear etiology, he is currently being treated with Clindamycin for suspected carotid surgical site infection. Has had increased freqency of ED and hospitalizations for COPD and pneumonia - No previous home steroids - Stop clindamycin - BC x 2 with antibiotics, sputum culture (3) Anxiety Current Visit: Yes Status: Acute Base Code: F41.9 - ANXIETY DISORDER, UNSPECIFIED Comment: 03/11/19 -continue home med Vistaril 50mg tid -Continue home med Buspar - EKG today (4) HTN (hypertension) Current Visit: Yes Status: Acute Base Code: I10 - ESSENTIAL (PRIMARY) HYPERTENSION Comment: 03/11/19 - Hypertensive in ED, likely reactionary, will continue to monitor - Norvasc 5mg daily - Coreg 3.125mg BID - Lisinopril 20mg QD (5) At risk for venous thromboembolism (VTE) Current Visit: Yes Status: Acute Base Code: Z91.89 - OTH PERSONAL RISK FACTORS, NOT ELSEWHERE CLASSIFIED Comment: 03/11/19 -Nursing to encourage ambulation. (6) Full code status Current Visit: Yes Status: Acute Base Code: Z78.9 - OTHER SPECIFIED HEALTH STATUS Comment: 03/11/19 -pt. is a full code
[2019-03-11] MEDS ORDERED: AZITHROMYCIN 500 MG TABLET PO ONE (09:46)
[2019-03-11] MEDS ORDERED: UMECLIDINIUM BROMIDE (INCRUSE) 62.5MCG IH SCH (10:00)
[2019-03-11] MEDS: CEFTRIAXONE 1GM/50ML BAG 1 GM/50 ML BAG IVPB SCH ×2 (11:08→22:44)
[2019-03-11] MEDS: BACLOFEN 10 MG TABLET PO PRN ×2 (11:08→22:44)
[2019-03-11] MEDS ORDERED: TRAZODONE 50 MG TABLET PO SCH (22:00)
[2019-03-12] MEDS: METHYLPREDNISOLONE PF 125MG/VIAL IVP SCH ×2 (05:42→11:47)
[2019-03-12 06:33] LABS: ABSOLUTE NEUTROPHIL COUNT 16.76; HEMATOCRIT 33.6 % (42.0-52.0); HEMOGLOBIN 11.3 gm/dl (14.0-18.0); LYMPH % 4.2 % (16-45); MEAN CELL VOLUME 91.8 fl (81-97); MEAN CORPUSCULAR HGB CONC 33.6 g/dl (32-36); MEAN PLATELET VOLUME 9.8 fl (7.4-10.4); MONO % 2.2 % (0-9); PLATELET COUNT 230 K/uL (130-400); RED BLOOD COUNT 3.66 M/uL (4.40-5.70); RED CELL DISTRIBUTION WIDTH 12.5 % (11.5-14.5); WHITE BLOOD COUNT W/O DIFF 17.9 K/uL (4.2-12.2)
[2019-03-12 06:39] LABS: MEAN CORPUSCULAR HEMOGLOBIN 30.8 pg (27-33)
[2019-03-12 06:48] LABS: ALB/GLOB RATIO 1.7 (1.1-1.8); ALBUMIN 3.3 g/dL (4.0-5.0); ALKALINE PHOSPHATASE 50 U/L (40-129); ALT/SGPT 10 U/L (<41); AST/SGOT 9 U/L (10.0-50.0); BLOOD UREA NITROGEN 19 mg/dL (8-23); CREATININE 0.6 mg/dL (0.7-1.2); EST GLOMERULAR FILTRATION RATE > 60 mL/min; GLUCOSE,RANDOM 136 mg/dL (74-109); TOTAL PROTEIN 5.3 g/dL (6.6-8.7)
[2019-03-12 06:55] LABS: PLATELET ESTIMATE NORMAL (NORMAL)
[2019-03-12] MEDS: IBUPROFEN 400 MG TABLET PO PRN (07:27)
[2019-03-12] MEDS: CEFTRIAXONE 1GM/50ML BAG 1 GM/50 ML BAG IVPB SCH (09:55)
[2019-03-12] MEDS: LISINOPRIL 20 MG TABLET PO SCH (09:56)
[2019-03-12] MEDS: CARVEDILOL 3.125 MG TABLET PO SCH (09:56)
[2019-03-12] MEDS: ATORVASTATIN 20 MG TABLET PO SCH (09:56)
[2019-03-12] MEDS: HYDROXYZINE PAMOATE 25 MG CAPSULE PO SCH (09:56)
[2019-03-12] MEDS: TAMSULOSIN HCL 0.4 MG CAP.ER.24H PO SCH (09:56)
[2019-03-12] MEDS: AMLODIPINE BESYLATE 5MG TAB PO SCH (09:56)
[2019-03-12] MEDS ORDERED: BUDESONIDE 0.5 MG/2 ML INH SCH (10:00)
[2019-03-12] MEDS ORDERED: AZITHROMYCIN 250 MG TABLET PO SCH (10:00)
[2019-03-12] MEDS: BUSPIRONE 5 MG TABLET PO SCH (10:09)
[2019-03-12] MEDS: IPRATROPIUM/ALBUTEROL (0.5MG/3MG) NEB INH PRN (10:10)
--- NOTE | 2019-03-12 10:16 | Discharge Summary ---
Providers Discharge Summary Date: 03/12/19 Date of admission: 03/11/19 04:14 Attending physician: RAHUL GERMAN Primary care physician: RAHUL GERMAN Physical Exam - Vital Signs Vital Signs: Vital Signs - Last 24 Hrs Temp Pulse Pulse Resp BP BP Pulse Ox 03/12/19 07:43 83 03/12/19 07:25 98.3 F 83 162/72 100 03/12/19 06:00 97.9 F 79 20 146/67 97 03/11/19 23:43 97.9 F 91 H 20 144/69 96 03/11/19 20:33 97.8 F 92 H 20 155/61 94 L 03/11/19 19:19 90 18 95 03/11/19 18:30 97.7 F 81 16 154/70 97 03/11/19 15:14 86 20 95 03/11/19 11:40 82 18 91 L 03/11/19 10:12 98.4 F 161/78 - General General Appearance: Alert, Oriented x3, Cooperative, No acute distress Limitations: No limitations - Head Head exam: Normal inspection - Eye Eye exam: Normal appearance, PERRL, EOMI Pupils: Normal accommodation - ENT ENT exam: Normal exam, Mucous membranes moist, Normal external ear exam, Normal orophraynx, TM's normal bilaterally Ear exam: Normal external inspection. negative: External canal tenderness Nasal Exam: Normal inspection. negative: Discharge, Sinus tenderness Mouth exam: Normal external inspection, Tongue normal Teeth exam: Normal inspection. negative: Dental caries Throat exam: Normal inspection. negative: Tonsillar erythema, Tonsillar exudate - Neck Neck exam: Normal inspection, Full ROM, Tenderness (left endart site is erythematous, indurated but not fluctuant, tender to touch, no exudate. No carotid bruit noted. Carotid pulse strong and intact) - Respiratory Respiratory exam: Decreased breath sounds. negative: Respiratory distress - Cardiovascular Cardiovascular Exam: Regular rate, Normal rhythm, Normal heart sounds Peripheral Pulses: 2+: Radial (R), Radial (L) - GI/Abdominal GI/Abdominal exam: Soft, Normal bowel sounds. negative: Tenderness - Rectal Rectal exam: Deferred - exam: Deferred - Extremities Extremities exam: Normal inspection, Full ROM, Normal capillary refill. negative: Tenderness - Back Back exam: Reports: Normal inspection, Full ROM. Denies: Muscle spasm, Rash noted, Tenderness - Neurological Neurological exam: Alert, CN II-XII intact, Normal gait, Oriented X3 - Psychiatric Psychiatric exam: Normal affect, Normal mood - Skin Skin exam: Dry, Intact, Normal color, Warm Type of lesion: Other (surgical site left carotid ) Hospitalization - Hospitalization Admission Diagnosis: acute exacerbation copd with hypoxia - Problem List/Discharge Diagnosis (1) COPD with acute exacerbation Current Visit: Yes Status: Acute Base Code: J44.1 - CHRONIC OBSTRUCTIVE PULMONARY DISEASE W (ACUTE) EXACERBATION Comment: 03/12/19 -CXR neg for acute process, severe emphysema noted, no fx -Procalcitonin 0.041 -WBC 17.9, Neutrophils 94. Likely r/t steroid use and/or cellulitis to surgical incision site -Change IV Solumedrol to PO Prednisone 50mg daily x 5 days -Continue Duoneb and Albuterol nebs at home -Consider trialing Pulmicort 0.5mg and Brovana 15mcg nebulized BID INSTEAD of Symbicort and in an effort to get medications deeper into lungs, Will order through [facility] and pt can discuss with auto brake technician -Recommended discussing necessity of using Duoneb AND Spiriva with auto brake technician d/t potential for causing several side effects like Dry Mouth, Constipation, Urinary retention -Change antibiotic therapy to Doxycyline 100mg PO BID x 7 days to cover copd exacerbation and cellulitis to surgical incision site on left neck. -PRN Home O2 use has been set up (2) Anxiety Current Visit: Yes Status: Acute Base Code: F41.9 - ANXIETY DISORDER, UNSPECIFIED Comment: 03/12/19 -continue home med Vistaril 50mg tid -Continue home med Buspar -EKG no acute changes (3) HTN (hypertension) Current Visit: Yes Status: Acute Base Code: I10 - ESSENTIAL (PRIMARY) HYPERTENSION Comment: 03/12/19 - BP 162/72 @ 0725 this a.m. (prior to medication administration) - Continue Norvasc 5mg daily - Continue Coreg 3.125mg BID - Continue Lisinopril 20mg QD, consider switching to ARB as it may be attributing to dry cough - F/u with PCP as scheduled on 03/21/19 (4) Leukocytosis Current Visit: Yes Status: Acute Base Code: D72.829 - ELEVATED WHITE BLOOD CELL COUNT, UNSPECIFIED Comment: 03/12/19 - Unclear etiology, he is currently being treated with Clindamycin for suspected carotid surgical site infection. Has had increased freqency of ED and hospitalizations for COPD and pneumonia - WBC 14.5 to 17.9, neutrophils 94. Has received Solumedrol IV 125mg x 1 and 60mg x 2 prior to blood drawn on 03/12/19. -Clindamycin was stopped on 03/11/19. Rocephin and Azithromycin were continued -Change IV antibiotics to PO Doxycycline to cover COPD exacerbation and Cellulitis (5) Postoperative cellulitis of surgical wound Current Visit: Yes Status: Acute Base Code: T81.49XA - INFECTION FOLLOWING A PROCEDURE, OTHER SURGICAL SITE, INIT Comment: 03/12/19: -S/p Carotid Endarterectomy approximately 8 days ago which developed wound site cellulitis -Was on Clindamycin 300mg PO q. 6 hours which was stopped on 03/11/19 d/t IV Rocephin and Azithromycin use -D/C Rocephin and Azithromycin -Start Doxycyline 100mg PO BID x 7 days -F/u with Dr. Frances (surgeon) as previously scheduled (6) At risk for venous thromboembolism (VTE) Current Visit: Yes Status: Acute Base Code: Z91.89 - OTH PERSONAL RISK FACTORS, NOT ELSEWHERE CLASSIFIED Comment: 03/12/19 -Nursing to encourage ambulation. (7) Full code status Current Visit: Yes Status: Acute Base Code: Z78.9 - OTHER SPECIFIED HEALTH STATUS Comment: 03/12/19 -pt. is a full code - Hospitalization Course Disposition: Home, Self-Care Hospital Course: 68 y/o male presenting to ED with 1 day history of increasing shortness of breath. Patient does have history of severe COPD, currently does not use oxygen at home but does have history of frequent ED visits and hospitalizations for exacerbation COPD with significant hypoxia at time of ED arrival. He recently had a carotid endarterectomy 7 days ago which subsequently developed wound site cellulitis and is currently on Clindamycin 300mg Q 6 hrs for this which was added 5 days ago after he was seen at [facility] for this. He reports after the endarterectomy he felt good and at his baseline then about 3 days ago began feeling fatigued, increase cough and increased sputum production which progressed into significant restlessness, anxiety and shortness of breath. Just prior to coming to ED he tested his BP and was 199/99 with RA SPO2 83%. He notes more anxiety related to breathing since his fall in November 2018 with rib fractures. Has had increase frequency of ED visits for SYED and pneumonia since. Past medical history includes former smoker, COPD, recurrent pneumonia, HTN, arthrisits, anxiety related to COPD, depression. Upon arrival to ED was hypertensive, dyspneic, RA SPO2 80% which increased to 92% on 2L O2. Afebrile. WBC 14.5. Carbon dioxide 30. CXR sever emphysema with linear scarring right base. He quickly improved with IV solumedrol, breathing treatments, ativan IV and was admitted for further observation, IV steroids. 03/11/19 1000: resting in bed comfortably, no respiratory distress. Does report the left side of his neck at the endarterectomy site is very sore. PCP: Dr German Pulmonology: Dr Robison Cardiology 03/12/19 0950: Vitals: T 98.3, BP 162/72, HR 83, RR 20, SpO2 99% on RA Has been receiving IV steroids, IV and PO antibiotics and respiratory treatments. Sitting up in bed, awake with no respiratory distress. Reports that he is feeling mostly back to his baseline but that he feels "warm", especially in left side of neck, which remains tender and sore. Reports that he doesn't feel he has any respiratory infection going on and was worried about his neck infection when he came in. States that he follows up with a provider in Dr. Frances's office around March [address] Frances "somewhere around March 31" to f/u on his carotid endarterectomy. When discussing possibility of switching Symibcort inhaler to nebulizers, pt expressed that he would want to talk to his auto brake technician, Dr. Harmon before doing it. Says he doesn't see Dr. Harmon until the end of March but would call the office and ask about switching. Procedures: Imaging and X-Rays 03/11/19 02:33 CXR [CHEST 2 VIEWS] [RAD] Stat Cardiology Procedures 03/11/19 09:33 EKG NOW Abnormal Labs: Abnormal Lab Results 03/11/19 03/11/19 03/12/19 Range/Units 02:08 02:08 06:13 WBC 14.5 H 17.9 H (4.2-12.2) K/uL RBC 4.35 L 3.66 L (4.40-5.70) M/uL Hgb 13.7 L 11.3 L (14.0-18.0) gm/dl Hct 39.6 L 33.6 L (42.0-52.0) % Neutrophils % 94.0 H (47-80) % Lymphocytes % 13.5 L 4.2 L (16-45) % Lymphocytes 4.0 L (16-45) % Sodium (136-145) mmol/L Potassium (3.4-4.5) mmol/L Chloride 96 L (98-107) mmol/L Carbon Dioxide 30.0 H (22-29) mmol/L Creatinine (0.7-1.2) mg/dL Random Glucose 125 H (74-109) mg/dL Calcium (8.8-10.2) mg/dL AST (10.0-50.0) U/L Total Protein (6.6-8.7) g/dL Albumin (4.0-5.0) g/dL 03/12/19 Range/Units 06:13 WBC (4.2-12.2) K/uL RBC (4.40-5.70) M/uL Hgb (14.0-18.0) gm/dl Hct (42.0-52.0) % Neutrophils % (47-80) % Lymphocytes % (16-45) % Lymphocytes (16-45) % Sodium 132 L (136-145) mmol/L Potassium 4.8 H (3.4-4.5) mmol/L Chloride 97 L (98-107) mmol/L Carbon Dioxide (22-29) mmol/L Creatinine 0.6 L (0.7-1.2) mg/dL Random Glucose 136 H (74-109) mg/dL Calcium 8.7 L (8.8-10.2) mg/dL AST 9 L (10.0-50.0) U/L Total Protein 5.3 L (6.6-8.7) g/dL Albumin 3.3 L (4.0-5.0) g/dL Condition at Discharge: (1) Good Discharge Medications - Discharge Medications Prescriptions: Doxycycline Hyclate 100 mg PO BID 7 Days #14 cap Prednisone 50 mg PO DAILY #5 tablet Home Medications: Ambulatory Orders Budesonide/Formoterol Fumarate [Symbicort 160-4.5 Mcg Inhaler] 2 puff IH BID 30 Days #120 05/11/14 [Last Taken 01/12/19] Trazodone HCl 100 mg PO QHS 90 Days #90 05/11/14 [Last Taken 01/12/19] Carvedilol [Coreg] 3.125 mg PO BID 90 Days #180 09/21/18 [Last Taken 01/12/19] Baclofen 10 mg PO BID PRN 30 Days #60 10/04/18 [Last Taken 01/12/19] Lisinopril 20 mg PO DAILY 90 Days #90 10/04/18 [Last Taken 01/12/19] Tiotropium [place] [Spiriva Respimat] 2 puff IH DAILY 30 Days #60 11/09/18 [Last Taken 01/12/19] Atorvastatin Calcium [Lipitor] 20 mg PO DAILY 90 Days #90 tab 01/09/19 [Last Taken 01/12/19] Albuterol Sulfate 0.083% [Neb] [Albuterol Sulfate] 2.5 mg INH RESP.Q4H PRN nebulization solution 02/25/19 [Last Taken Unknown] Ipratropium/Albuterol [Duoneb] 3 ml INH RESP.Q4H.WA ampul.neb 02/25/19 [Last Taken Unknown] Acetaminophen [Tylenol 500Mg Tab] 1,000 mg PO Q6H PRN tablet 03/12/19 [Last Dean en Unknown] Albuterol Sulfate 0.083% [Neb] [Albuterol Sulfate] 2.5 mg INH RESP.Q4H PRN nebulization solution 03/12/19 [Last Taken Unknown] Doxycycline Hyclate 100 mg PO BID 7 Days #14 cap 03/12/19 [Last Taken Unknown] Ibuprofen [Motrin] 800 mg PO Q8H PRN tablet 03/12/19 [Last Taken Unknown] Ipratropium/Albuterol [Duoneb] 3 ml INH RESP.Q6H PRN ampul.neb 03/12/19 [Last Taken Unknown] Prednisone 50 mg PO DAILY #5 tablet 03/12/19 [Last Taken Unknown] Discharge Plan - Discharge Instructions Activity at Discharge: Increase Activity as Tolerated Diet at Discharge: Regular Diet Additional Instructions: Hospital follow up with Dr. German as scheduled on 03/21 at 1:20PM [facility] In an effort to increase amount of medication you get into your lungs, discuss the following with your auto brake technician -Stopping Symbicort and instead: Using Pulmicort 0.5mg nebulized twice a day Using Brovana 15mcg nebulized twice a day These 2 nebulized medications have been ordered through [facility] should your auto brake technician want to consider changing Quality Measures - Quality Measures Quality Measures: Advance Directives, Coronary Artery Disease: Antiplatelet Therapy, Documentation of Current Medications in Medical Record, Elder Maltreatment Screen and Follow-Up Plan, Screening for High Blood Pressure and F/U Documented - Current Medications Quality Measure: Measure #130: Documentation of Current Medications Documentation of Current Medications: <Current Medications Documented/Reviewed> [G8411] - Blood Pressure Screening Quality Measure: Screening for High Blood Pressure and Follow-Up Documented Does Patient Have Any of the Following: Active Dx of HTN Blood Pressure Classification: Hypertensive Reading Systolic Measurement: 161 Diastolic Measurement: 78 Screening for High Blood Pressure: Patient Exclusion, Hx of HTN [G9744] - Coronary Artery Disease Quality Measure: Measure #6: Coronary Artery Disease (CAD) Antiplatelet Therapy: Not Prescribed, Reason not Specified [5696F with 8P] - Advance Directives Quality Measure: Measure #47: Care Plan Advance Directives Established: No Advance Directives Information Provided To Patient: Declined Advance Directives on File: No Living Will: No Power of Juvenile Justice Specialist: No Advance Care Planning: <Care Plan/Decision Maker Documented; Discussed & Docume nted> [8013F] - Elder Abuse Suspicion Index Screening: Elder Abuse Suspicion Index Screening Rely on people for bathing, dressing, shopping, banking, etc: No Prevented from getting food, clothes, medication, etc: No Made to feel shamed or threatened by someone: No Forced to sign papers or use money against will: No Feel afraid, touched in ways not wanted or hurt physically: No Poor eye contact, withdrawn, malnourished, cuts or bruises: No Screening Result: Negative result EASI Reference Information: Sharon SURESH, Naila C, Stan D, Roxi Montalvo.Development and validation of a tool to assist physicians identification of elder abuse: The Elder Abuse Suspicion Index (EASI ). Journal of Elder Abuse and Neglect, 2008; 20 (3): 276-300. - Elder Maltreatment Screen Quality Measures: Elder Maltreatment Screen and Follow-Up Plan Elder Maltreatment Screen: <Negative, No Follow-Up Plan Required> [G8734]
== END 2019-03-12 11:55 | disposition home or self-care (01) ==
LOC: ER 01:59 → MEDSURG 04:14
PROVIDERS: ADMIT Internal Medicine; ATTEND Internal Medicine
DX: J44.1 Chronic obstructive pulmonary disease with (acute) exacerbation (principal); R09.02 Hypoxemia; T81.49XA Infection following a procedure, other surgical site, initial encounter; I10 Essential (primary) hypertension; D72.829 Elevated white blood cell count, unspecified; M19.90 Unspecified osteoarthritis, unspecified site; F41.8 Other specified anxiety disorders
CPT/HCPCS: 71046; 80048; 80053; 84145; 85025; 85027; 93005; 94618; 94640; 94761; 99217; 99220; J0696; J2930; J7613

== ENCOUNTER 2019-11-23 20:27 | Emergency (ER) | payer MEDICARE ==
[2019-11-23] MEDS ORDERED: ASPIRIN 81 MG CHEWABLE TABLET PO ONE (20:34)
--- NOTE | 2019-11-23 20:40 | Emergency Department Record ---
History of Present Illness - General Chief Complaint: Shortness of breath Stated Complaint: SYED Time Seen by Provider: 11/23/19 20:31 Source: EMS Mode of Arrival: EMS Limitations: No limitations - History of Present Illness Initial Comments: 69 yo male presents to ED for evaluation of difficulty in breathing symptoms this evening. Patient reports a history of oxygen-dependent COPD, received Albuterol and Solumedrol 125 mg IV prior to arrival. Patient denies fevers, chills, or recent illness. Patient denies productive cough symptoms. Patient reports that he felt "anxious", but reports that his symptoms are now improved. MD Complaint: Shortness of breath Onset/Timin -: Hour(s) Severity: Moderate Consistency: Constant Improves With: Bronchodilators Worsens With: Nothing Known History Of: COPD Associated Symptoms: Denies other symptoms Treatments Prior to Arrival: Bronchodilator, Oxygen - Related Data Home Oxygen Therapy: Yes Home Oxygen Amount: 2 Liters Previous Rx's Medication Instructions Recorded Prednisone [Prednisone 20Mg] 20 mg PO TID #12 tab 11/23/19 Allergies Allergy/AdvReac Type Severity Reaction Status Date / Time No Known Drug Allergies Allergy Verified 11/23/19 20:38 Review of Systems Constitutional: Denies: Chills, Fever, Malaise, Night sweats Eyes: Denies: Eye discharge, Eye pain ENT: Denies: Congestion, Ear pain, Epistaxis Respiratory: Reports: Dyspnea. Denies: Cough Cardiovascular: Reports: Dyspnea on exertion. Denies: Edema, Palpitations Endocrine: Denies: Fatigue, Heat or cold intolerance Gastrointestinal: Denies: Abdominal pain, Nausea, Vomiting Genitourinary: Denies: Incontinence, Retention Musculoskeletal: Denies: Arthralgia, Back pain Skin: Denies: Bruising, Change in color Neurological: Denies: Abnormal gait, Confusion, Headache, Seizure Psychiatric: Denies: Anxiety Hematological/Lymphatic: Denies: Anemia, Blood Clots Past Medical History - SOCIAL HISTORY Smoking Status: Former smoker Drug Use: Occasional Drug Use Detail:: Marijuana - RESPIRATORY Hx Respiratory Disorders: Yes Hx Bronchitis: Yes Hx COPD: Yes Hx Dyspnea: Yes Hx Pneumonia: Yes (yearly) Comment:: spontaneous pneumo - CARDIOVASCULAR Hx Cardio Disorders: Yes Hx Hypertension: Yes - NEURO Hx Neuro Disorders: No - GI Hx GI Disorders: No - Hx Genitourinary Disorders: No - ENDOCRINE Hx Endocrine Disorders: No - MUSCULOSKELETAL Hx Musculoskeletal Disorders: Yes Hx Arthritis: Yes - PSYCH Hx Psych Problems: Yes Hx Anxiety: Yes Hx Depression: Yes - HEMATOLOGY/ONCOLOGY Hx Hematology/Oncology Disorders: No Family Medical History Hx Anxiety: Brother/Sister Hx Depression: Children, Brother/Sister Hx Diabetes: Brother/Sister Hx Heart Disease: Mother, Grandparents Hx HTN: Mother Hx Resp Disorders: Father Physical Exam - General General Appearance: Alert, Oriented x3, Cooperative, Mild distress Limitations: No limitations - Head Head exam: Atraumatic, Normocephalic, Normal inspection Head exam detail: negative: Abrasion, Contusion, Fan's sign, General tenderness, Hematoma, Laceration - Eye Eye exam: Normal appearance. negative: Conjunctival injection, Periorbital swelling, Periorbital tenderness, Scleral icterus - ENT Ear exam: negative: Auricular hematoma, Auricular trauma Nasal Exam: negative: Active bleeding, Discharge, Dried blood, Foreign body Mouth exam: negative: Drooling, Laceration, Muffled voice, Tongue elevation - Neck Neck exam: Normal inspection. negative: Meningismus, Tenderness - Respiratory Respiratory exam: Decreased breath sounds. negative: Rales, Respiratory distress, Rhonchi, Stridor, Wheezes - Cardiovascular Cardiovascular Exam: Regular rate, Normal rhythm, Normal heart sounds - GI/Abdominal GI/Abdominal exam: Soft. negative: Rebound, Rigid, Tenderness - Rectal Rectal exam: Deferred - exam: Deferred - Extremities Extremities exam: Normal inspection. negative: Pedal edema, Tenderness - Back Back exam: Denies: CVA tenderness (R), CVA tenderness (L) - Neurological Neurological exam: Alert, Oriented X3 - Psychiatric Psychiatric exam: Normal affect, Normal mood - Skin Skin exam: Normal color. negative: Abrasion Type of lesion: negative: abrasion Course Vital Signs 11/23/19 20:33 Temperature 97.7 F Pulse Rate [ 81 Pulse Ox Probe] Respiratory 24 Rate Blood Pressure 163/96 [Right Arm] Pulse Ox 96 - Reevaluation(s) Reevaluation #1: 11/23/19 20:41 EKG: NSR 71 Normal axis, normal intervals No acute ST-T wave changes Reevaluation #2: 11/23/19 21:26 CXR: Severe COPD No acute process Laboratory studies were reviewed and appear grossly unremarkable for an acute process. Reevaluation #3: 11/23/19 21:37 Patient was reassessed, reports that he is feeling much improved. Patient is 96% on his baseline 2L NC, pulse 80's. Patient appears stable for discharge at this time on Prednisone with instructions to follow-up with his PCP in 3-5 days as directed. Medical Decision Making - Lab Data Result diagrams: 11/23/19 20:44 11/23/19 20:44 Disposition Disposition: Discharge Clinical Impression: COPD with acute exacerbation Disposition: Home, Self-Care Condition: (2) Stable Instructions: COPD (Chronic Obstructive Pulmonary Disease) (ED) Additional Instructions: Return to ED if your symptoms worsen or if you have any concerns. Prednisone as directed. Follow-up with your family doctor in 3-5 days as directed. Prescriptions: Prednisone [Prednisone 20Mg] 20 mg PO TID #12 tab Forms: Patient Portal Access Time of Disposition: 21:35 Quality - Quality Measures Quality Measures: N/A - Blood Pressure Screening Does Patient Have Any of the Following: No Blood Pressure Classification: Hypertensive Reading Systolic Measurement: 139 Diastolic Measurement: 96 Screening for High Blood Pressure: < First Hypertensive BP, F/U Documented > [G8950] First Hypertensive Follow-up Interventions: Referral to alternative/primary care provider.
[2019-11-23 21:12] LABS: ABSOLUTE NEUTROPHIL COUNT 4.36; BASO % 0.3 % (0-6); EOS % 1.4 % (0-6); GRAN % 59.2 % (47-80); HEMATOCRIT 36.8 % (42.0-52.0); HEMOGLOBIN 12.3 gm/dl (14.0-18.0); LYMPH % 28.2 % (16-45); MEAN CELL VOLUME 89.5 fl (81-97); MEAN CORPUSCULAR HEMOGLOBIN 29.9 pg (27-33); MEAN CORPUSCULAR HGB CONC 33.4 g/dl (32-36); MEAN PLATELET VOLUME 10.1 fl (7.4-10.4); MONO % 10.9 % (0-9); PLATELET COUNT 225 K/uL (130-400); RED BLOOD COUNT 4.11 M/uL (4.40-5.70); RED CELL DISTRIBUTION WIDTH 12.5 % (11.5-14.5); WHITE BLOOD COUNT W/O DIFF 7.4 K/uL (4.2-12.2)
[2019-11-23 21:20] LABS: BLOOD UREA NITROGEN 12 mg/dL (8-23); CREATININE 0.6 mg/dL (0.7-1.2); EST GLOMERULAR FILTRATION RATE > 60 mL/min
[2019-11-23 21:21] LABS: TOTAL PROTEIN 6.4 g/dL (6.6-8.7)
[2019-11-23 21:23] LABS: GLUCOSE,RANDOM 117 mg/dL (74-109)
--- NOTE | 2019-11-23 21:24 | RADIOLOGY REPORT ---
EXAMINATION: Two View Chest Radiographs EXAM DATE: 11/23/2019 9:10 PM TECHNIQUE: Frontal and lateral views INDICATION: SYED COMPARISON: Chest x-ray: 03/11/2019, 02/05/2019, CT chest August 26, 2019 ENCOUNTER: Not applicable FINDINGS: The lungs are severely hyperinflated. There is flattening of the diaphragm. There is some linear scat tered pulmonary scarring. There is no consolidation or mass. There is no effusion or pneumothorax. Th e heart and pulmonary vessels appear normal. There has been segmental resection of the right fifth ri b related to previous surgery. There are a couple of bilateral old rib fractures. IMPRESSION: 1. Severe COPD. 2. Negative for focal infiltrate. Dictated by: Gentry Aguilar MD on 11/23/2019 9:15 PM. .
[2019-11-23 21:25] LABS: ALB/GLOB RATIO 1.8 (1.1-1.8); ALBUMIN 4.1 g/dL (4.0-5.0); ALT/SGPT 17 U/L (<41); AST/SGOT 14 U/L (10.0-50.0)
[2019-11-23 21:26] LABS: ALKALINE PHOSPHATASE 60 U/L (40-129)
== END 2019-11-23 21:55 | disposition home or self-care (01) ==
LOC: ER 20:27
DX: J44.1 Chronic obstructive pulmonary disease with (acute) exacerbation (principal); I10 Essential (primary) hypertension; Z99.81 Dependence on supplemental oxygen; Z87.891 Personal history of nicotine dependence
CPT/HCPCS: 71046; 80053; 84484; 85025; 93005; 93010; 99284